=== PATIENT | male | born 1960 | race Caucasian/White ===

== ENCOUNTER 2016-06-13 20:12 | Inpatient (IN) | payer OTHER ==
[~2016-06-13] VITALS: Ht 180.3 cm; Wt 80.5 kg
[~2016-06-13 20:12] MED LIST: AMLO10TA4 PO; AMLO5TAB2 PO; ASPI325T4 PO; ASPI81TA9 PO; ATEN50TA PO; ATOR10TA60 PO; ATOR40TA PO; AZIT500T4 PO; Aspirin PO; CARV6.252 PO; DIGO125T PO; DILT360C PO; FLEC50TA PO; HYDR25TA9 PO; INSU100I13 SQ; LEVO100T5 PO; LEVO125T PO; LEVO125T5 PO; LISI5TAB PO; LORA-434 PO; MAG355OR12 PO; METO100T11 PO; METO25TA4 PO; METO50TA2 PO; OMEG1CAP6 PO; OXYC5TAB PO; RIVA10TA PO
[2016-06-13 20:48] LABS: BASO # 0.1 x10^3/uL (0.0-0.2); BASO % 1 % (0-3); EOS % 4 % (0-3); HEMATOCRIT 34.3 % (39.0-53.0); HEMOGLOBIN 11.4 g/dL (13.0-17.5); LYMPH % 30 % (24-48); MEAN CORPUSCULAR HEMOGLOBIN 30 pg (25-35); MEAN CORPUSCULAR HGB CONC 33 g/dL (31-37); MEAN CORPUSCULAR VOLUME 90 fL (79-100); MONO % 13 % (0-9); NEUT % 53 % (31-73); PLATELET COUNT 387 x10^3/uL (140-400); RED BLOOD COUNT 3.81 x10^6/uL (4.30-5.70); RED CELL DISTRIBUTION WIDTH 14.9 % (11.5-14.5); WHITE BLOOD COUNT 10.1 x10^3/uL (4.0-11.0)
[2016-06-13 20:56] LABS: PROTHROMBIN TIME PATIENT 12.1 SEC (11.7-14.0)
[2016-06-13 21:02] LABS: CALCIUM 8.9 mg/dL (8.5-10.1); CREATININE 0.9 mg/dL (0.7-1.3); GFR 87.9; POTASSIUM 3.8 mmol/L (3.5-5.1)
[2016-06-13 21:06] LABS: ALBUMIN 3.3 g/dL (3.4-5.0); ALBUMIN/GLOBULIN RATIO 0.9 (1.0-1.7); TOTAL BILIRUBIN 0.3 mg/dL (0.2-1.0); TOTAL PROTEIN 6.9 g/dL (6.4-8.2)
--- NOTE | 2016-06-13 21:16 | RAD ---
PROCEDURE Head and cervical spine CT without contrast. HISTORY Trauma. TECHNIQUE Computed tomographic images the head and cervical spine were obtained without contrast. One or more of the following individualized dose reduction techniques were utilized for this examination: 1. Automated exposure control; 2. Adjustment of the mA and/or kV according to patient size; 3. Use of iterative reconstruction technique. COMPARISON None. FINDINGS Head: There is no acute or subacute hemorrhage. There is no mass effect or midline shift. There is no hydrocephalus. The palacios and white matter differentiation pattern is intact. The orbits, paranasal sinuses mastoid air cells are unremarkable. No calvarial lesion is seen. Cervical spine: There is no significant listhesis. The vertebral bodies are normal in height. There is mild endplate remodeling at multiple levels. There is a small round lucent lesion within C6, likely a small hemangioma. There is a circumscribed hyperdense lesion within the right aspect of the spinal canal extending from the inferior aspect of C7 to the mid inferior aspect of T1. This measures 1.9 cm craniocaudally by 1.6 cm transversely by 1.4 cm anteroposteriorly. This extends to but does not extend through the right C7-T1 and T1-T2 neural foramina. This occupies slightly less than half of the caliber of the central canal at these levels. There is calcified plaque within the carotid bifurcations. There is an enlarged left thyroid lobe or single 3.5 cm hypodense lesion within the left thyroid lobe. At C2-C3, there is endplate remodeling. There is no stenosis. At C3-C4, there is endplate remodeling. There is no stenosis. At C4-C5, there is left posterior lateral predominant endplate remodeling. There is minimal left foraminal stenosis. At C5-C6, there is endplate remodeling. There is minimal right foraminal stenosis. At C6-C7, there is endplate remodeling. There is no stenosis. IMPRESSION 1. No acute intracranial finding or evidence of acute cervical spine trauma. 2. Mild multilevel degenerative change within the cervical spine. 3. 1.9 cm likely ossified lesion within the right aspect of the central canal at C7 and T1, occupying slightly less than half of the central canal caliber. This may be due to a benign lesion such as an ossified meningioma. However, further characterization with a contrast-enhanced MRI is recommended if not previously performed. Electronically signed by: Kathleen De La Cruz (Jun 13, 2016 21:15:10)
[2016-06-13] MEDS ORDERED: LORAZEPAM 1 MG TABLET. PO ONE (22:00)
[2016-06-14] MEDS: ONDANSETRON PF 4 MG/2 ML VIAL. IV PRN ×2 (00:53→20:12)
--- NOTE | 2016-06-14 02:27 | ED.ADGEN ---
Past Medical History Past Medical History: A-Fib, Anxiety, Arrhythmia, Cancer, Hypertension, Other Additional Past Medical Histor: SPONT PNEUMO, HODGKINS X2, PERICARDIAL STRIPPING, SVT Past Surgical History: Appendectomy, Splenectomy, Other Additional Past Surgical Histo: TAIL OF PANCREAS REMOVED, PERICARDIAL STRIPPING , Alcohol Use: Occasionally Drug Use: None Adult General Chief Complaint Chief Complaint: SYNCOPE HPI HPI Patient is a 55 year old man, history of hypertension, Hodgkin's lymphoma, pericardial stripping, atrial fibrillation, status post cardiac ablation 1 week ago at [facility], who is taking per [facility] as directed, who presents emergency department after 2 episodes of syncope. Patient states that he had returned to work today the first time after his procedure, he states that he was feeling well although slowly fatigued, when he stood up to go to bed, he suddenly felt extremely dizzy and lightheaded, and became diaphoretic, he states he then passed out, falling down to the ground and striking his head, states that he was unconscious for a few seconds. He states he been woken up and attempted to get back up to his feet, at that time had a second episode of syncope, again lasting for a few seconds. At that point his called EMS having heard him fall. Patient placed in c-collar upon arrival to the ED. He denies any neck pain , any numbness weakness or tingling, any chest pain, states he did experience shortness of breath during the seconds preceding the syncopal episode, but otherwise had no shortness of breath. He denies any vision changes, any preceding injuries, states that he's been compliant with all medications, no swelling in his extremities, no history of DVT or PE, no palpitations or other complaints, no sick contacts or exposures, no fevers or chills. Review of Systems Review of Systems Constitutional: Denies fever or chills. [] Eyes: Denies change in visual acuity. [] HENT: Denies nasal congestion or sore throat. [] Respiratory: Denies cough, shortness of breath with syncope. [] Cardiovascular: Denies chest pain or edema. [] GI: Denies abdominal pain, nausea, vomiting, bloody stools or diarrhea. [] : Denies dysuria. [] Musculoskeletal: Denies back pain or joint pain. [] Integument: Denies rash. [] Neurologic: Denies headache, focal weakness or sensory changes. Syncope, associated with diaphoresis, lightheadedness, and shortness breath [] Endocrine: Denies polyuria or polydipsia. [] Lymphatic: Denies swollen glands. [] Psychiatric: Denies depression or anxiety. [] Allergies Allergies Allergies Coded Allergies Type Severity Reaction Last Updated Verified morphine Allergy Severe blisters, sob 03/15/16 Yes Physical Exam Physical Exam Constitutional: Well developed, well nourished, no acute distress, non-toxic appearance. [] HENT: Normocephalic, atraumatic, bilateral external ears normal, oropharynx moist, no oral exudates, nose normal. [] Eyes: PERRLA, EOMI, conjunctiva normal, no discharge. [] Neck: Normal range of motion, no tenderness, supple, no stridor. [] Cardiovascular:Heart rate regular rhythm, no murmur, S1, S2, rubs or gallops. Patient with well-healed surgical incision over the midline chest from pericardial stripping. [] Lungs & Thorax: Bilateral breath sounds clear to auscultation no wheezing, rhonchi, rales. No chest tenderness or crepitus. [] Abdomen: Bowel sounds normal, soft, no tenderness, no rebound, rigidity, no guarding, no masses, no pulsatile masses. [] Skin: Warm, dry, no erythema, no rash. [] Back: No tenderness, no CVA tenderness. [] Extremities: No tenderness, no cyanosis, no clubbing, ROM intact, no edema. Negative Homans sign. [] Neurologic: Alert and oriented X 3, normal motor function, normal sensory function, no focal deficits noted. [] Psychologic: Affect normal, judgement normal, mood normal. [] Current Patient Data Vital Signs Vital Signs Date Time Temp Pulse Resp B/P Pulse Ox O2 Delivery O2 Flow Rate FiO2 06/13/16 21:30 78 144/69 97 Room Air 06/13/16 20:16 98.4 16 98.4 Lab Values Laboratory Tests Test 06/13/16 20:35 White Blood Count 10.1x10^3/uL (4.0-11.0) Red Blood Count 3.81x10^6/uL (4.30-5.70) L Hemoglobin 11.4g/dL (13.0-17.5) L Hematocrit 34.3% (39.0-53.0) L Mean Corpuscular Volume 90fL (79-100) Mean Corpuscular Hemoglobin 30pg (25-35) Mean Corpuscular Hemoglobin Concent 33g/dL (31-37) Red Cell Distribution Width 14.9% (11.5-14.5) H Platelet Count 387x10^3/uL (140-400) Neutrophils (%) (Auto) 53% (31-73) Lymphocytes (%) (Auto) 30% (24-48) Monocytes (%) (Auto) 13% (0-9) H Eosinophils (%) (Auto) 4% (0-3) H Basophils (%) (Auto) 1% (0-3) Neutrophils # (Auto) 5.3x10^3uL (1.8-7.7) Lymphocytes # (Auto) 3.0x10^3/uL (1.0-4.8) Monocytes # (Auto) 1.3x10^3/uL (0.0-1.1) H Eosinophils # (Auto) 0.4x10^3/uL (0.0-0.7) Basophils # (Auto) 0.1x10^3/uL (0.0-0.2) Prothrombin Time 12.1SEC (11.7-14.0) Prothrombin Time INR 1.0 (0.8-1.1) PTT 31SEC (24-38) Sodium Level 139mmol/L (136-145) Potassium Level 3.8mmol/L (3.5-5.1) Chloride Level 102mmol/L (98-107) Carbon Dioxide Level 26mmol/L (21-32) Anion Gap 11 (6-14) Blood Urea Nitrogen 16mg/dL (8-26) Creatinine 0.9mg/dL (0.7-1.3) Estimated GFR (Cockcroft-Gault) 87.9 BUN/Creatinine Ratio 18 (6-20) Glucose Level 132mg/dL (70-99) H Calcium Level 8.9mg/dL (8.5-10.1) Total Bilirubin 0.3mg/dL (0.2-1.0) Aspartate Amino Transferase (AST) 73U/L (15-37) H Alanine Aminotransferase (ALT) 72U/L (16-63) H Alkaline Phosphatase 152U/L (46-116) H Troponin I Quantitative 1.358ng/mL (0.000-0.055) XC-Lla-A-Type Natriuretic Peptide 585pg/mL (0-124) H Total Protein 6.9g/dL (6.4-8.2) Albumin 3.3g/dL (3.4-5.0) L Albumin/Globulin Ratio 0.9 (1.0-1.7) L Laboratory Tests 06/13/16 20:35 Laboratory Tests 06/13/16 20:35 EKG EKG EC: Sinus rhythm, heart rate of 82 bpm, left axis deviation, left ventricle hypertrophy, QTC of 464, MN 168, QRS of 122, abnormal ECG, does not meet STEMI criteria, as interpreted by me. [] Radiology/Procedures Radiology/Procedures [] [facility] [address] [place] [address] IMAGING REPORT Signed PATIENT: MIGUEL HERNANDEZ ACCOUNT: [id number] : 1960 LOCATION: ER AGE: 55 SEX: M EXAM STATUS: REG ER ORD. PHYSICIAN: AI YIN DO REASON: syncope/head injury on pradaxa PROCEDURE: HEAD AND CERVICAL SPINE WO PROCEDURE Head and cervical spine CT without contrast. HISTORY Trauma. TECHNIQUE Computed tomographic images the head and cervical spine were obtained without contrast. One or more of the following individualized dose reduction techniques were utilized for this examination: 1. Automated exposure control; 2. Adjustment of the mA and/or kV according to patient size; 3. Use of iterative reconstruction technique. COMPARISON None. FINDINGS Head: There is no acute or subacute hemorrhage. There is no mass effect or midline shift. There is no hydrocephalus. The palacios and white matter differentiation pattern is intact. The orbits, paranasal sinuses mastoid air cells are unremarkable. No calvarial lesion is seen. Cervical spine: There is no significant listhesis. The vertebral bodies are normal in height. There is mild endplate remodeling at multiple levels. There is a small round lucent lesion within C6, likely a small hemangioma. There is a circumscribed hyperdense lesion within the right aspect of the spinal canal extending from the inferior aspect of C7 to the mid inferior aspect of T1. This measures 1.9 cm craniocaudally by 1.6 cm transversely by 1.4 cm anteroposteriorly. This extends to but does not extend through the right C7-T1 and T1-T2 neural foramina. This occupies slightly less than half of the caliber of the central canal at these levels. There is calcified plaque within the carotid bifurcations. There is an enlarged left thyroid lobe or single 3.5 cm hypodense lesion within the left thyroid lobe. At C2-C3, there is endplate remodeling. There is no stenosis. At C3-C4, there is endplate remodeling. There is no stenosis. At C4-C5, there is left posterior lateral predominant endplate remodeling. There is minimal left foraminal stenosis. At C5-C6, there is endplate remodeling. There is minimal right foraminal stenosis. At C6-C7, there is endplate remodeling. There is no stenosis. IMPRESSION 1. No acute intracranial finding or evidence of acute cervical spine trauma. 2. Mild multilevel degenerative change within the cervical spine. 3. 1.9 cm likely ossified lesion within the right aspect of the central canal at C7 and T1, occupying slightly less than half of the central canal caliber. This may be due to a benign lesion such as an ossified meningioma. However, further characterization with a contrast-enhanced MRI is recommended if not previously performed. Electronically signed by: Kathleen Durbin (Jun 13, 2016 21:15:10) DICTATED and SIGNED BY: KATHLEEN DURBIN MD DATE: 06/13/162114 CC: AI YIN DO; COURTNEY RYAN MD ~ Impressions: Chest x-ray: Mild hyperinflation with flattening of diaphragms noted, normal cardiac silhouette, with sternotomy wires in place, no pneumothorax, no infiltrates, no effusions, as interpreted by me. Course & Med Decision Making Course & Med Decision Making Pertinent Labs and Imaging studies reviewed. (See chart for details) Patient well-appearing, normotensive the emergency department, oxygen saturation of 98-99% room air, heart rate in the 80s, denying all complaints this time, unable to reproduce his symptoms with motion to upright position and head motion. 2 in the ED, laboratory studies reveal a positive troponin, but patient did have an ablation performed last week, do not have lab for studies for comparison. I did discuss these findings and concerns for the unclear etiology of his syncope with patient, he is agreeable for admission to the hospital, I did discuss findings as above with Dr. Cantor of cardiology, as patient is anticoagulated, with no other abnormalities identified, does not believe imaging of the chest or additional testing is required at this time, agrees the troponin elevation is consistent with recent procedure, requests the patient be admitted to the cardiac telemetry floor, for serial enzymes and monitoring. To be evaluated by the cartilage team in the morning. Patient is agreeable to this plan, continues to rest comfortably in the ED. Has history of anxiety for which he uses Ativan, was given a single dose in the ED orally which he tolerated without issue. Findings as above discussed with Dr. Murray of internal medicine, patient accepted to his service as a full admission to the cardiac telemetry floor with plan as above, bridge orders entered per his request. Dragon Disclaimer Dragon Disclaimer This electronic medical record was generated, in whole or in part, using a voice recognition dictation system. Departure Impression: Primary Impression: Syncope Additional Impression: Elevated troponin Disposition: ADMITTED INPATIENT Admitting Physician: Tomas Murray Condition: IMPROVED Problem Qualifiers Primary Impression: Syncope Syncope type: unspecified Qualified Code: R55 - Syncope and collapse AI YIN DO Jun 14, 2016 02:28
--- NOTE | 2016-06-14 04:02 | ACF ---
Admit Criteria Forms Admit Criteria Forms Admit Criteria Forms SYNCOPE Clinical Indications for Admission to Inpatient Care ( Place 'X' for any and all applicable criteria): Admission is indicated for syncope and ANY ONE of the following (1)(2)(3)(4)(5) (6)(7) : [X]I. Inpatient admission required rather than observation care (Also use Syncope: Observation Care Criteria as appropriate) because of ANY ONE of the following: [ ]a) Hemodynamic instability that is severe or persistent [ ]b) Cardiac arrhythmias of immediate concern identified or strongly suspected (eg, needs electrophysiologic study) [ ]c) Acute coronary syndrome identified (Also use Myocardial Infarction or Angina Criteria form ) [ ]d) Structural cardiac disorder (eg, aortic stenosis) suspected as cause that requires immediate correction [ ]e) Respiratory symptoms (eg, dyspnea, tachypnea) that are severe or persistent [ ]f) Neurologic signs or symptoms that are severe or persistent ( eg, stroke, seizures, altered mental status) [ ]g) Severe electrolyte abnormalities requiring inpatient care [ ]h) Supplemental oxygen or respiratory treatment for over 24 hrs that are performable only in acute inpatient setting [ ]i) IV fluid to replace significant ongoing (eg, for over 24 hrs ) losses (>3 L/m2 per day) [ ]j) Continuous intravenous infusion of anticoagulation, platelet inhibitor, vasoactive, or antiarrhythmic medication(15)(16) [ ]k) Pulmonary artery catheter monitoring [ ]l) Temporary pacemaker placement(17) [ ]m) Emergent cardioversion(18) [X]n) Other conditions, treatment or monitoring requiring inpatient admission [ ]II. Suspicion of imminently dangerous cause (eg, rare causes like pericardial tamponade, pulmonary embolism) [ ]III. Syncope causing severe injury requiring hospitalization Extended stay beyond goal length of stay may be needed for(28) [ ]a) Dangerous arrhythmia(15)(23)(27)(29) [ ]b) Myocardial ischemia [ ]c) Seizure disorder [ ]d) Syncope-related injuries The original [facility] content created by [facility] has been revised. The portions of the content which have been revised are identified through the use of italic text or in bold, and [facility] has neither reviewed nor approved the modified material. All other unmodified content is copyright [facility]. Please see references footnoted in the original [facility] edition 2016 DONATO LEWIS Jun 14, 2016 04:02
--- NOTE | 2016-06-14 06:26 | EKG ---
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
--- NOTE | 2016-06-14 07:42 | RAD ---
Portable AP upright view CXR: Clinical indications: Syncope. Comparison: April 02, 2016. Findings: No acute lung infiltrate or pleural effusion or pulmonary edema or lung mass or pneumothorax is seen. Old calcified granulomatous disease is seen at. A sternotomy is evident. The heart size, pulmonary vasculature, mediastinum and both raúl are unremarkable. Impression: No acute radiographic abnormality is seen.
--- NOTE | 2016-06-14 10:32 | PDOC2 ---
ANISH CHOPRA TILE SETTER APPRENTICE 06/14/16 1032: CARDIAC CONSULT DATE OF CONSULT Date of Consult DATE: 06/14/16 TIME: 10:19 REASON FOR CONSULT Reason for Consult: syncope,elevated troponin REFERRING PHYSICIAN Referring Physician: aXvier SOURCE Source: Chart review, Patient HISTORY OF PRESENT ILLNESS HISTORY OF PRESENT ILLNESS This is a pleasant 55 yo male admitted for complains of syncope. Reports that he was getting up from bed last night when he started having tunneling vision and dizziness and diaphoresis. He then feel and hit his head on the floor but no apparent injury. He tried to get up and it happened again immediately. This was then witnessed for the second episode by his daughter. He passed out on both times but only lasted for few seconds. He was slightly confused at that time. Denies any palpitations nor chest pain at that time. He did have a little SOA but otherwise no other symptoms. No nausea, vomiting, diarrhea, incontinence episodes. Denies any unilateral weakness, facial droop, nor dysarthria. He recently had an AFIB ablation on Friday and did well and actually went to work yesterday without any symptoms. He has been compliant with his medications but he told me that he did not drink fluids that well yesterday. Denies any decongestants, caffeinated beverage use. Currently he is symptom free. PAST MEDICAL HISTORY Past Medical History Cardiovascular: AFIB (paroxysmal), HTN, Other (pericarditis with pericardial window) Pulmonary: Pneumonia, Other (pneumothorax) CENTRAL NERVOUS SYSTEM: TIA GI: GERD, Peptic Ulcer disease Heme/Onc: Anemia NOS, Cancer (hodgekin's lymphoma) Hepatobiliary: No pertinent hx Psych: Anxiety Musculoskeletal: Osteoarthritis Rheumatologic: No pertinent hx Infectious disease: No pertinent hx ENT: No pertinent hx Renal/: No pertinent hx Endocrine: Hypothyroidism Dermatology: No pertinent hx PAST SURGICAL HISTORY Past Surgical History splenectomy, partial pancreatectomy, AFIB ablation 06/10/2016 FAMILY HISTORY Family History noncontributory SOCIAL HISTORY Social History Social History works @ [employer] Smoke: No ALCOHOL: none Drugs: None CURRENT MEDICATIONS CURRENT MEDICATIONS Current Medications Medications (Trade) Dose Ordered Sig/Fernanda Route PRN Reason Start Time Stop Time Status Last Admin Dose Admin Lorazepam (Ativan) 0.5 mg 1X ONCE PO 06/13/16 22:00 06/13/16 22:01 DC 06/13/16 22:34 Ondansetron HCl (Zofran) 4 mg PRN Q8HRS PRN IV NAUSEA/VOMITING 06/14/16 00:30 06/15/16 00:29 06/14/16 00:53 ALLERGIES ALLERGIES: Coded Allergies: morphine (Verified Allergy, Severe, blisters, sob, 03/15/16) ROS Review of System 14 point ROS evaluated with pertinent positives noted per HPI PHYSICAL EXAM General: Alert, Oriented X3, Cooperative, No acute distress HEENT: Atraumatic, Mucous membr. moist/pink Lungs: Clear to auscultation, Normal air movement Heart: Regular rate, Normal S1, Normal S2, Other Abdomen: Soft, No tenderness Extremities: No cyanosis, No edema Skin: No breakdown, No significant lesion Neuro: Normal speech, Sensation intact Psych/Mental Status: Mental status NL, Mood NL MUSCULOSKELETAL: Osteoarthritic changes both hands VITALS VITALS Vital Signs Date Time Temp Pulse Resp B/P Pulse Ox O2 Delivery O2 Flow Rate FiO2 06/14/16 08:02 Room Air 06/14/16 07:38 82 20 154/71 93 06/13/16 20:16 98.4 98.4 LABS Lab: Laboratory Tests Test 06/13/16 20:35 06/14/16 07:30 White Blood Count 10.1x10^3/uL (4.0-11.0) Red Blood Count 3.81x10^6/uL (4.30-5.70) Hemoglobin 11.4g/dL (13.0-17.5) Hematocrit 34.3% (39.0-53.0) Mean Corpuscular Volume 90fL (79-100) Mean Corpuscular Hemoglobin 30pg (25-35) Mean Corpuscular Hemoglobin Concent 33g/dL (31-37) Red Cell Distribution Width 14.9% (11.5-14.5) Platelet Count 387x10^3/uL (140-400) Neutrophils (%) (Auto) 53% (31-73) Lymphocytes (%) (Auto) 30% (24-48) Monocytes (%) (Auto) 13% (0-9) Eosinophils (%) (Auto) 4% (0-3) Basophils (%) (Auto) 1% (0-3) Neutrophils # (Auto) 5.3x10^3uL (1.8-7.7) Lymphocytes # (Auto) 3.0x10^3/uL (1.0-4.8) Monocytes # (Auto) 1.3x10^3/uL (0.0-1.1) Eosinophils # (Auto) 0.4x10^3/uL (0.0-0.7) Basophils # (Auto) 0.1x10^3/uL (0.0-0.2) Prothrombin Time 12.1SEC (11.7-14.0) Prothromb Time International Ratio 1.0 (0.8-1.1) Activated Partial Thromboplast Time 31SEC (24-38) Sodium Level 139mmol/L (136-145) Potassium Level 3.8mmol/L (3.5-5.1) Chloride Level 102mmol/L (98-107) Carbon Dioxide Level 26mmol/L (21-32) Anion Gap 11 (6-14) Blood Urea Nitrogen 16mg/dL (8-26) Creatinine 0.9mg/dL (0.7-1.3) Estimated GFR (Cockcroft-Gault) 87.9 BUN/Creatinine Ratio 18 (6-20) Glucose Level 132mg/dL (70-99) Calcium Level 8.9mg/dL (8.5-10.1) Total Bilirubin 0.3mg/dL (0.2-1.0) Aspartate Amino Transf (AST/SGOT) 73U/L (15-37) Alanine Aminotransferase (ALT/SGPT) 72U/L (16-63) Alkaline Phosphatase 152U/L (46-116) Troponin I Quantitative 1.358ng/mL (0.000-0.055) 1.063ng/mL (0.000-0.055) DA-Xdv-T-Type Natriuretic Peptide 585pg/mL (0-124) Total Protein 6.9g/dL (6.4-8.2) Albumin 3.3g/dL (3.4-5.0) Albumin/Globulin Ratio 0.9 (1.0-1.7) ECHOCARDIOGRAM ECHOCARDIOGRAM <Conclusion> The left ventricle is normal size. Left ventricle systolic function is normal. The Ejection Fraction is 55-60%. The left atrium is mildly dilated. There is no thrombus noted in the left atrial appendage. There is no significant aortic valvular stenosis. Doppler and Color Flow revealed no significant aortic regurgitation. Doppler and Color Flow revealed moderate mitral regurgitation. Doppler and Color Flow revealed mild to moderate tricuspid regurgitation. DATE: 04/01/16 1339 STRESS TEST STRESS TEST Conclusion 1. No EKG evidence of ischemia but limited assessment due to atrial flutter with RVR. 2. Normal perfusion at stress/rest. 3. Low risk study. 4. EF preserved at > 70% DATE: 03/22/16 1352 ASSESSMENT/PLAN ASSESSMENT/PLAN 1. Syncope x2: likely orthostasis with underlying inadequate hydration. Could not rule out arrhythmia. 2. S/P RF ablation: 06/10/2016. EKG with T wave flattening to anterolateral leads likely from the latter 3. Elevated troponin: peaked at 1.3. CP free. likely from 1 & 2 with possible arrhythmia. Recent MPI normal. 4. PAFIB and TIA 5. Hx of hodkins lymphoma: on remission 6. HTN/HLP Recommendations 1. Limited TTE and note wall motion and EF, repeat EKG 2. Start IVF 3. Mg, BMP 4. Obtain ablation records. 5. Continue with secondary prevention 6. Await TTE result then will restart on xarelto. 7. Restart metoprolol, stop flecainide for now while waiting on echo result. Problems: MARINA PACE MD 06/14/16 1843: CARDIAC CONSULT ALLERGIES ALLERGIES: Coded Allergies: morphine (Verified Allergy, Severe, blisters, sob, 03/15/16) ASSESSMENT/PLAN ASSESSMENT/PLAN Patient seen and examined. Agree with HOMEMAKING REHABILITATION CONSULTANT's assessment and plan. Syncope most prob secondary to orthostasis - agree with IVF. Troponin elevation probably secondary to recent ablation therapy. 2D echo showed normal LV function without any wall motion abnormalities. Plan for event monitor placement upon discharge to rule out any bradyarrhythmias. If DC'd over weekend, our office will call him for event monitor. Thank you for your consultation. Problems: ANISH CHOPRA APRN Jun 14, 2016 10:32 MARINA PACE MD Jun 14, 2016 18:43
[2016-06-14] MEDS ORDERED: IV NORMAL SALINE 1000ML BAG 1,000 ML IV ONE (11:00)
[2016-06-14] MEDS: IV NORMAL SALINE 1000ML BAG 1,000 ML IV SCH (11:00)
[2016-06-14] MEDS ORDERED: ASPIRIN 81 MG TAB.CHEW PO ONE (11:00)
--- NOTE | 2016-06-14 11:09 | EKG ---
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
[2016-06-14] MEDS: ACETAMINOPHEN 325 MG TABLET. PO PRN ×2 (11:18→20:11)
[2016-06-14 11:46] LABS: CALCIUM 9.1 mg/dL (8.5-10.1); CREATININE 0.8 mg/dL (0.7-1.3); GFR 100.7; POTASSIUM 4.3 mmol/L (3.5-5.1)
[2016-06-14 11:49] LABS: HEMATOCRIT 35.9 % (39.0-53.0); HEMOGLOBIN 12.3 g/dL (13.0-17.5); RED BLOOD COUNT 4.1 x10^6/uL (4.30-5.70); RED CELL DISTRIBUTION WIDTH 15.2 % (11.5-14.5); WHITE BLOOD COUNT 10.6 x10^3/uL (4.0-11.0)
[2016-06-14] MEDS ORDERED: ANTI-COAG MONITOR BY PHARMACY. MC PRN (12:15)
[2016-06-14] MEDS: FLECAINIDE 50 MG TABLET. PO SCH ×2 (12:25→21:32)
[2016-06-14] MEDS: OMEGA-3 FATTY ACIDS/FISH OIL 1,000 MG CAPSULE. PO SCH ×3 (12:25→21:00)
[2016-06-14] MEDS: LEVOTHYROXINE 125 MCG TABLET PO SCH (12:25)
[2016-06-14] MEDS: RIVAROXABAN 10 MG TABLET. PO SCH ×2 (12:27→17:17)
--- NOTE | 2016-06-14 12:28 | CARD ---
APPROVED REPORT EXAM: LIMITED Two-dimensional echocardiogram. Other Information Quality : Excellent INDICATION LV Function:Systolic LEFT VENTRICLE The left ventricle is normal size. There is normal left ventricular wall thickness. The left ventricu lar systolic function is normal and the ejection fraction is within normal range. The Ejection Fracti on is 55-60%. Septal motion consistent with post-operative state. RIGHT VENTRICLE The right ventricle is normal size. The right ventricular systolic function is normal. ATRIA The left atrium size is normal. The right atrium size is normal. The interatrial septum is intact wit h no evidence for an atrial septal defect or patent foramen ovale as noted on 2-D or Doppler imaging. AORTIC VALVE Valves not evaluated on this limited study GREAT VESSELS Not evaluated PERICARDIAL EFFUSION There is no pleural effusion. There is no evidence of significant pericardial effusion. Critical Notification Critical Value: No <Conclusion> The left ventricular systolic function is normal and the ejection fraction is within normal range. Th e Ejection Fraction is 55-60%.
[2016-06-14] MEDS ORDERED: MAGNESIUM SULFATE 2GM 50 ML IV ONE (13:00)
[2016-06-14] MEDS: ASPIRIN ENTERIC COATED 81 MG TABLET.DR. PO SCH (13:00)
[2016-06-14] MEDS: METOPROLOL TART IMMED RELEASE 25 MG TABLET PO SCH ×2 (13:00→21:32)
[2016-06-14 16:21] VITALS: BP 155/83
[2016-06-14] MEDS ORDERED: APIX5TAB PO (16:59)
[2016-06-14] MEDS ORDERED: ALPR1TAB2 PO (17:00)
[2016-06-14] MEDS ORDERED: LORA1TAB PO (17:21)
[2016-06-14] MEDS: OXYCODONE IR 5 MG TABLET. PO PRN (17:33)
[2016-06-14] MEDS: LORAZEPAM 1 MG TABLET. PO PRN (17:33)
[2016-06-14 19:05] VITALS: BP 159/83
[2016-06-14] MEDS ORDERED: ATORVASTATIN CALCIUM 10 MG TABLET. PO SCH (21:00)
[2016-06-14 23:45] VITALS: BP 126/58
[2016-06-15] MEDS: IV NORMAL SALINE 1000ML BAG 1,000 ML IV SCH (00:20)
[2016-06-15 03:05] VITALS: BP 148/73
[2016-06-15] MEDS: OXYCODONE IR 5 MG TABLET. PO PRN ×2 (04:11→08:43)
--- NOTE | 2016-06-15 04:13 | HP ---
ADMIT DATE: 06/14/2016 CHIEF COMPLAINT: Syncope. HISTORY OF PRESENT ILLNESS: The patient is a pleasant 55-year-old male who had an ablation recently. He is well known to our service. Last night, he had another syncopal episode. He presented to the ER for evaluation. I have discussed the case with the ER physician. We are going to admit the patient and consult cardiology. PAST MEDICAL HISTORY: Recent ablation, AFib, anxiety, arrhythmias, Hodgkin's disease, pericardial stripping, spontaneous pneumo, hypertension, tail of pancreas removed. ALLERGIES: MORPHINE. FAMILY HISTORY: Coronary artery disease. SOCIAL HISTORY: Does not drink, smoke or take drugs. MEDICATIONS: Reviewed, please refer to the MRAD. REVIEW OF SYSTEMS: GENERAL: No history of weight change, weakness or fevers. SKIN: No bruising, hair changes or rashes. EYES: No blurred, double or loss of vision. NOSE AND THROAT: No history of nosebleeds, hoarseness or sore throat. HEART: No history of palpitations, chest pain or shortness of breath on exertion. LUNGS: Denies cough, hemoptysis, wheezing or shortness of breath. GASTROINTESTINAL: Denies changes in appetite, nausea, vomiting, diarrhea or constipation. GENITOURINARY: No history of frequency, urgency, hesitancy or nocturia. NEUROLOGIC: Denies history of numbness, tingling, tremor or weakness. PSYCHIATRIC: No history of panic, anxiety or depression. ENDOCRINE: No history of heat or cold intolerance, polyuria or polydipsia. EXTREMITIES: Denies muscle weakness, joint pain, pain on walking or stiffness. PHYSICAL EXAMINATION: VITAL SIGNS: Temperature afebrile, pulse 88, respirations 20, blood pressure 154/71. GENERAL: He is alert, cooperative. HEART: Normal S1, S2. LUNGS: Clear. ABDOMEN: Soft. EXTREMITIES: No edema. SKIN: No rashes. PSYCHIATRIC: Stable. VASCULAR: Good capillary refill. ENDOCRINE: No thyromegaly. LYMPHATICS: No cervical nodes. HEMATOPOIETIC: No bruising. LABORATORY DATA: Hematology normal other than hemoglobin of 11.4. Electrolytes normal. Troponin was little high at 1.35. ASSESSMENT AND PLAN: Syncopal episode with elevated troponin, suspect possible cardiac event. The patient has been admitted. We will consult cardiology. We will continue serial enzymes, serial EKGs, echocardiogram. Continue home medicines. Await further cardiac input. JACK BRUNNER DO DR: MICHAEL/lisa JOB#: [id number] / [id number]
[2016-06-15 05:17] LABS: BASO # 0.1 x10^3/uL (0.0-0.2); BASO % 1 % (0-3); EOS % 4 % (0-3); HEMATOCRIT 34.4 % (39.0-53.0); HEMOGLOBIN 11.6 g/dL (13.0-17.5); LYMPH # 1.9 x10^3/uL (1.0-4.8); LYMPH % 18 % (24-48); MEAN CORPUSCULAR HEMOGLOBIN 30 pg (25-35); MEAN CORPUSCULAR HGB CONC 34 g/dL (31-37); MEAN CORPUSCULAR VOLUME 89 fL (79-100); MONO % 10 % (0-9); NEUT % 67 % (31-73); PLATELET COUNT 405 x10^3/uL (140-400); RED BLOOD COUNT 3.87 x10^6/uL (4.30-5.70); RED CELL DISTRIBUTION WIDTH 14.7 % (11.5-14.5); WHITE BLOOD COUNT 10.4 x10^3/uL (4.0-11.0)
[2016-06-15 05:21] LABS: CALCIUM 8.5 mg/dL (8.5-10.1); CREATININE 0.7 mg/dL (0.7-1.3); GFR 117.5; POTASSIUM 4.1 mmol/L (3.5-5.1)
[2016-06-15 07:00] VITALS: BP 157/82
[2016-06-15] MEDS ORDERED: ASPIRIN ENTERIC COATED 81 MG TABLET.DR. PO SCH (08:00)
[2016-06-15] MEDS ORDERED: ONDANSETRON PF 4 MG/2 ML VIAL. IV ONE (08:30)
[2016-06-15] MEDS: OMEGA-3 FATTY ACIDS/FISH OIL 1,000 MG CAPSULE. PO SCH ×2 (08:42→09:00)
[2016-06-15] MEDS: METOPROLOL TART IMMED RELEASE 25 MG TABLET PO SCH (08:43)
[2016-06-15] MEDS: ASPIRIN ENTERIC COATED 81 MG TABLET.DR. PO SCH (08:44)
[2016-06-15] MEDS: LEVOTHYROXINE 125 MCG TABLET PO SCH (08:45)
[2016-06-15] MEDS ORDERED: MAG HYDROX/ALUMINUM HYDROX/SMC 30 ML ORAL.SUSP PO SCH (09:00)
[2016-06-15] MEDS: FLECAINIDE 50 MG TABLET. PO SCH (09:00)
[2016-06-15 10:52] VITALS: BP 133/76
[2016-06-15] MEDS: LORAZEPAM 1 MG TABLET. PO PRN (11:36)
--- NOTE | 2016-06-15 12:28 | PDOC ---
PROGRESS NOTES Chief Complaint Chief Complaint 1. Syncope x2: likely orthostasis, no athymias noted. anticipated D today 2. S/P RF ablation: 06/10/2016. 3. Elevated troponin: peaked at 1.3. CP free. 4. PAFIB and TIA 5. Hx of Pena lymphoma: on remission 6. HTN/HLP Vitals Vitals Vital Signs Date Time Temp Pulse Resp B/P Pulse Ox O2 Delivery O2 Flow Rate FiO2 06/15/16 11:37 Room Air 06/15/16 10:52 97.9 75 18 133/76 97 97.9 Physical Exam General: Alert, Oriented X3, Cooperative, No acute distress Heart: Regular rate, Normal S1, Normal S2, Other Lungs: Clear Abdomen: Soft, No tenderness Extremities: No cyanosis, No edema Skin: No breakdown, No significant lesion Labs LABS Laboratory Tests Test 06/15/16 04:45 White Blood Count 10.4x10^3/uL (4.0-11.0) Red Blood Count 3.87x10^6/uL (4.30-5.70) Hemoglobin 11.6g/dL (13.0-17.5) Hematocrit 34.4% (39.0-53.0) Mean Corpuscular Volume 89fL (79-100) Mean Corpuscular Hemoglobin 30pg (25-35) Mean Corpuscular Hemoglobin Concent 34g/dL (31-37) Red Cell Distribution Width 14.7% (11.5-14.5) Platelet Count 405x10^3/uL (140-400) Neutrophils (%) (Auto) 67% (31-73) Lymphocytes (%) (Auto) 18% (24-48) Monocytes (%) (Auto) 10% (0-9) Eosinophils (%) (Auto) 4% (0-3) Basophils (%) (Auto) 1% (0-3) Neutrophils # (Auto) 7.0x10^3uL (1.8-7.7) Lymphocytes # (Auto) 1.9x10^3/uL (1.0-4.8) Monocytes # (Auto) 1.0x10^3/uL (0.0-1.1) Eosinophils # (Auto) 0.4x10^3/uL (0.0-0.7) Basophils # (Auto) 0.1x10^3/uL (0.0-0.2) Sodium Level 139mmol/L (136-145) Potassium Level 4.1mmol/L (3.5-5.1) Chloride Level 104mmol/L (98-107) Carbon Dioxide Level 28mmol/L (21-32) Anion Gap 7 (6-14) Blood Urea Nitrogen 11mg/dL (8-26) Creatinine 0.7mg/dL (0.7-1.3) Estimated GFR (Cockcroft-Gault) 117.5 Glucose Level 129mg/dL (70-99) Calcium Level 8.5mg/dL (8.5-10.1) Assessment and Plan Assessmemt and Plan Problems Medical Problems: (1) Elevated troponin Status: Acute (2) Syncope Status: Acute Problems: Comment Review of Relevant I have reviewed the following items carlos (where applicable) has been applied. Labs Laboratory Tests Test 06/13/16 20:35 06/14/16 07:30 06/14/16 11:20 06/14/16 11:25 White Blood Count 10.1x10^3/uL (4.0-11.0) 10.6x10^3/uL (4.0-11.0) Red Blood Count 3.81x10^6/uL (4.30-5.70) 4.10x10^6/uL (4.30-5.70) Hemoglobin 11.4g/dL (13.0-17.5) 12.3g/dL (13.0-17.5) Hematocrit 34.3% (39.0-53.0) 35.9% (39.0-53.0) Mean Corpuscular Volume 90fL (79-100) 88fL (79-100) Mean Corpuscular Hemoglobin 30pg (25-35) 30pg (25-35) Mean Corpuscular Hemoglobin Concent 33g/dL (31-37) 34g/dL (31-37) Red Cell Distribution Width 14.9% (11.5-14.5) 15.2% (11.5-14.5) Platelet Count 387x10^3/uL (140-400) 427x10^3/uL (140-400) Neutrophils (%) (Auto) 53% (31-73) Lymphocytes (%) (Auto) 30% (24-48) Monocytes (%) (Auto) 13% (0-9) Eosinophils (%) (Auto) 4% (0-3) Basophils (%) (Auto) 1% (0-3) Neutrophils # (Auto) 5.3x10^3uL (1.8-7.7) Lymphocytes # (Auto) 3.0x10^3/uL (1.0-4.8) Monocytes # (Auto) 1.3x10^3/uL (0.0-1.1) Eosinophils # (Auto) 0.4x10^3/uL (0.0-0.7) Basophils # (Auto) 0.1x10^3/uL (0.0-0.2) Prothrombin Time 12.1SEC (11.7-14.0) Prothromb Time International Ratio 1.0 (0.8-1.1) Activated Partial Thromboplast Time 31SEC (24-38) Sodium Level 139mmol/L (136-145) 141mmol/L (136-145) Potassium Level 3.8mmol/L (3.5-5.1) 4.3mmol/L (3.5-5.1) Chloride Level 102mmol/L (98-107) 103mmol/L (98-107) Carbon Dioxide Level 26mmol/L (21-32) 32mmol/L (21-32) Anion Gap 11 (6-14) 6 (6-14) Blood Urea Nitrogen 16mg/dL (8-26) 12mg/dL (8-26) Creatinine 0.9mg/dL (0.7-1.3) 0.8mg/dL (0.7-1.3) Estimated GFR (Cockcroft-Gault) 87.9 100.7 BUN/Creatinine Ratio 18 (6-20) Glucose Level 132mg/dL (70-99) 123mg/dL (70-99) Calcium Level 8.9mg/dL (8.5-10.1) 9.1mg/dL (8.5-10.1) Total Bilirubin 0.3mg/dL (0.2-1.0) Aspartate Amino Transf (AST/SGOT) 73U/L (15-37) Alanine Aminotransferase (ALT/SGPT) 72U/L (16-63) Alkaline Phosphatase 152U/L (46-116) Troponin I Quantitative 1.358ng/mL (0.000-0.055) 1.063ng/mL (0.000-0.055) MY-Pgl-U-Type Natriuretic Peptide 585pg/mL (0-124) Total Protein 6.9g/dL (6.4-8.2) Albumin 3.3g/dL (3.4-5.0) Albumin/Globulin Ratio 0.9 (1.0-1.7) Creatine Kinase 83U/L (39-308) Test 06/14/16 11:27 06/15/16 04:45 Magnesium Level 1.7mg/dL (1.8-2.4) White Blood Count 10.4x10^3/uL (4.0-11.0) Red Blood Count 3.87x10^6/uL (4.30-5.70) Hemoglobin 11.6g/dL (13.0-17.5) Hematocrit 34.4% (39.0-53.0) Mean Corpuscular Volume 89fL (79-100) Mean Corpuscular Hemoglobin 30pg (25-35) Mean Corpuscular Hemoglobin Concent 34g/dL (31-37) Red Cell Distribution Width 14.7% (11.5-14.5) Platelet Count 405x10^3/uL (140-400) Neutrophils (%) (Auto) 67% (31-73) Lymphocytes (%) (Auto) 18% (24-48) Monocytes (%) (Auto) 10% (0-9) Eosinophils (%) (Auto) 4% (0-3) Basophils (%) (Auto) 1% (0-3) Neutrophils # (Auto) 7.0x10^3uL (1.8-7.7) Lymphocytes # (Auto) 1.9x10^3/uL (1.0-4.8) Monocytes # (Auto) 1.0x10^3/uL (0.0-1.1) Eosinophils # (Auto) 0.4x10^3/uL (0.0-0.7) Basophils # (Auto) 0.1x10^3/uL (0.0-0.2) Sodium Level 139mmol/L (136-145) Potassium Level 4.1mmol/L (3.5-5.1) Chloride Level 104mmol/L (98-107) Carbon Dioxide Level 28mmol/L (21-32) Anion Gap 7 (6-14) Blood Urea Nitrogen 11mg/dL (8-26) Creatinine 0.7mg/dL (0.7-1.3) Estimated GFR (Cockcroft-Gault) 117.5 Glucose Level 129mg/dL (70-99) Calcium Level 8.5mg/dL (8.5-10.1) Laboratory Tests Test 06/15/16 04:45 White Blood Count 10.4x10^3/uL (4.0-11.0) Red Blood Count 3.87x10^6/uL (4.30-5.70) Hemoglobin 11.6g/dL (13.0-17.5) Hematocrit 34.4% (39.0-53.0) Mean Corpuscular Volume 89fL (79-100) Mean Corpuscular Hemoglobin 30pg (25-35) Mean Corpuscular Hemoglobin Concent 34g/dL (31-37) Red Cell Distribution Width 14.7% (11.5-14.5) Platelet Count 405x10^3/uL (140-400) Neutrophils (%) (Auto) 67% (31-73) Lymphocytes (%) (Auto) 18% (24-48) Monocytes (%) (Auto) 10% (0-9) Eosinophils (%) (Auto) 4% (0-3) Basophils (%) (Auto) 1% (0-3) Neutrophils # (Auto) 7.0x10^3uL (1.8-7.7) Lymphocytes # (Auto) 1.9x10^3/uL (1.0-4.8) Monocytes # (Auto) 1.0x10^3/uL (0.0-1.1) Eosinophils # (Auto) 0.4x10^3/uL (0.0-0.7) Basophils # (Auto) 0.1x10^3/uL (0.0-0.2) Sodium Level 139mmol/L (136-145) Potassium Level 4.1mmol/L (3.5-5.1) Chloride Level 104mmol/L (98-107) Carbon Dioxide Level 28mmol/L (21-32) Anion Gap 7 (6-14) Blood Urea Nitrogen 11mg/dL (8-26) Creatinine 0.7mg/dL (0.7-1.3) Estimated GFR (Cockcroft-Gault) 117.5 Glucose Level 129mg/dL (70-99) Calcium Level 8.5mg/dL (8.5-10.1) Medications Current Medications Lorazepam (Ativan) 0.5 mg 1X ONCE PO Last administered on 06/13/16 22:34; Start 06/13/16 at 22:00; Stop 06/13/16 at 22:01; Status DC Ondansetron HCl (Zofran) 4 mg PRN Q8HRS PRN IV NAUSEA/VOMITING Last administered on 06/14/16 20:12; Start 06/14/16 at 00:30; Stop 06/15/16 at 00:29 ; Status DC Acetaminophen 650 mg 650 mg PRN Q4HRS PRN PO FEVER Last administered on 20:11; Start 06/14/16 at 00:30; Stop 06/15/16 at 00:29; Status DC Sodium Chloride 1,000 ml @ 100 mls/hr 1X ONCE IV Last administered on 11:18; Start 06/14/16 at 11:00; Stop 06/14/16 at 20:59; Status DC Sodium Chloride (Iv Sodium Chloride 0.9% 1000ml Bag) 1,000 ml @ 75 mls/hr [id number] IV Last administered on 06/15/16 00:20; Start 06/14/16 at 11:00 Aspirin (Ecotrin) 81 mg DAILYWBKFT PO ; Start 06/15/16 at 08:00; Status Cancel Aspirin (Children'S Aspirin) 324 mg 1X ONCE PO Last administered on 06/14/16 11:19; Start 06/14/16 at 11:00; Stop 06/14/16 at 11:02; Status DC Aspirin (Ecotrin) 81 mg DAILYWBKFT PO Last administered on 06/15/16 08:44; Start 06/14/16 at 13:00 Atorvastatin Calcium (Lipitor) 10 mg QHS PO Last administered on 06/14/16 12: 26; Start 06/14/16 at 21:00 Flecainide Acetate (Tambocor) 100 mg Q12HR PO Last administered on 06/14/16 21 :32; Start 06/14/16 at 13:00 Levothyroxine Sodium (Synthroid) 125 mcg DAILY07 PO Last administered on 08:45; Start 06/14/16 at 13:00 Al Hydroxide/Mg Hydroxide (Mylanta Plus Xs) 30 ml DAILY PO Last administered on 06/15/16 08:44; Start 06/15/16 at 09:00 Metoprolol Tartrate (Lopressor) 25 mg BID PO Last administered on 06/15/16 08: 43; Start 06/14/16 at 13:00 Fish Oil (Fish Oil) 2,000 mg BID PO ; Start 06/14/16 at 13:00 Oxycodone HCl (Roxicodone) 5 mg PRN Q6HRS PRN PO PAIN Last administered on 06/15 08:43; Start 06/14/16 at 11:30 Rivaroxaban (Xarelto) 20 mg DAILYWSUP PO Last administered on 06/14/16 12:27; Start 06/14/16 at 17:00; Stop 06/14/16 at 17:22; Status DC Info 1 each 1 each PRN DAILY PRN MC SEE COMMENTS; Start 06/14/16 at 12:15 Magnesium Sulfate/ Dextrose (Magnesium Sulfate PREMIX 2GM) 50 ml @ 25 mls/hr 1X ONCE IV Last administered on 06/14/16 13:42; Start 06/14/16 at 13:00; Stop 06/14/16 at 14:59; Status DC Lorazepam (Ativan) 1 mg TID PRN PRN PO ANXIETY / AGITATION Last administered on 06/15/16 11:36; Start 06/14/16 at 17:30 Ondansetron HCl (Zofran) 4 mg 1X ONCE IV Last administered on 06/15/16 08:45 ; Start 06/15/16 at 08:30; Stop 06/15/16 at 08:31; Status DC Active Scripts Active Oxycodone Hcl 5 Mg Tablet 5 Mg PO PRN Q6HRS PRN Metoprolol Tartrate 25 Mg Tablet 25 Mg PO BID Flecainide Acetate 50 Mg Tablet 100 Mg PO Q12HR Synthroid (Levothyroxine Sodium) 125 Mcg Tablet 125 Mcg PO DAILY07 Atorvastatin Calcium 10 Mg Tablet 10 Mg PO QHS 30 Days Aspirin Ec (Aspirin) 81 Mg Tablet.dr 81 Mg PO DAILYWBKFT Fish Oil 1,000 Mg Capsule (Rulo-3 Fatty Acids/Fish Oil) 1,000 Mg Capsule 2,000 Mg PO BID 30 Days Reported Lorazepam 1 Mg Tablet 1 Mg PO TID PRN PRN Xanax (Alprazolam) 1 Mg Tablet 1 Tab PO PRN TID PRN Eliquis (Apixaban) 5 Mg Tablet 5 Mg PO Maalox Maximum Strength Susp (Mag Hydrox/Al Hydrox/Simeth) 355 Ml Oral.susp 355 Ml PO Vitals/I & O Vital Sign - Last 24 Hours 06/14/16 06/14/16 06/14/16 06/14/16 13:45 16:21 17:33 18:40 Temp 97.7 97.7 Pulse 79 77 Resp B/P 135/60 155/83 Pulse Ox 96 97 97 O2 Delivery Room Air Room Air Room Air 06/14/16 06/14/16 06/14/16 06/14/16 19:05 20:00 21:32 21:32 Temp 97.8 97.8 Pulse 83 81 81 Resp 28 B/P 159/83 Pulse Ox 95 O2 Delivery Room Air Room Air 06/14/16 06/15/16 06/15/16 06/15/16 23:45 03:05 04:11 07:00 Temp 98.5 97.9 97.9 98.5 97.9 97.9 Pulse 77 80 79 Resp B/P 126/58 148/73 157/82 Pulse Ox 96 97 96 O2 Delivery Room Air Room Air Room Air Room Air 06/15/16 06/15/16 06/15/16 06/15/16 08:43 08:43 10:52 11:37 Temp 97.9 97.9 Pulse 78 75 Resp 18 B/P 157/82 133/76 Pulse Ox 97 O2 Delivery Room Air Room Air Room Air Intake and Output 06/14/16 06/14/16 06/15/16 15:00 23:00 07:00 Intake Total 60 ml Output Total 700 ml Balance 60 ml -700 ml VASIREDDI,YVON R MD Jun 15, 2016 12:28
--- NOTE | 2016-06-16 01:47 | DS ---
DATE OF DISCHARGE: 06/15/2016 DISCHARGE DIAGNOSES: 1. Syncope, likely due to orthostatic static 2. Status post cardioversion for Atrial fibrillation on 06/10/2016. 3. Elevated troponins, currently chest pain free. 4. History of paroxysmal atrial fibrillation and TIA. 5. History of Hodgkin's lymphoma. 6. Hypertension and hyperlipidemia. BRIEF HOSPITAL COURSE: A 55-year-old male patient admitted to the hospital for near syncope symptoms. He was evaluated by Cardiology, admitted to the Cardiology floor. Telemetry did not show any arrhythmias and as per Cardiology recommendations,pt did not show any signs of LV wall motion difficulties. Echocardiogram did not show any LV wall motion abnormalities. His symptoms improved with IV hydration and today he did not complain of any symptoms and telemetry did not show any arrhythmia. As per Cardiology recommendations, the patient can go home and plan for event monitor. DISCHARGE EXAMINATION: GENERAL: Alert, oriented x 3. HEART: S1, S2 present. LUNGS: Clear to auscultation. ABDOMEN: Soft, nontender, no organomegaly. EXTREMITIES: No edema. DISCHARGE DISPOSITION: Home. DISCHARGE CONDITION: Stable. FOLLOWUP: With Cardiology within 2 days. Total time spent for discharge is 32 minutes for patient education, counseling, and coordination of care. YVON SOTELO MD DR: FATEMEH/lisa JOB#: [id number] / [id number] BERNADINE
== END 2016-06-15 14:00 | disposition home or self-care (01) | DRG 312 ==
LOC: ER 20:12 → ED HOLD 21:48 → 2 NORTH 06-14 16:27
PROVIDERS: ADMIT Internal Medicine; ATTEND Internal Medicine
DX: I95.1 Orthostatic hypotension (principal); E03.9 Hypothyroidism, unspecified; E78.5 Hyperlipidemia, unspecified; I10 Essential (primary) hypertension; I48.0 Paroxysmal atrial fibrillation; K21.9 Gastro-esophageal reflux disease without esophagitis; Z82.49 Family history of ischemic heart disease and other diseases of the circulatory system; Z85.71 Personal history of Hodgkin lymphoma; Z85.72 Personal history of non-Hodgkin lymphomas; Z86.73 Personal history of transient ischemic attack (TIA), and cerebral infarction without residual deficits; Z87.11 Personal history of peptic ulcer disease; Z90.49 Acquired absence of other specified parts of digestive tract; Z88.6 Allergy status to analgesic agent
CPT/HCPCS: 36415; 70450; 71010; 72125; 80048; 80053; 82550; 83735; 83880; 84484; 85027; 85610; 85730; 93005; 93308; 96374; J2405; J7030; J7060; 99285-25

== ENCOUNTER 2016-06-16 16:07 | Inpatient (IN) | payer OTHER ==
[~2016-06-16] VITALS: Ht 185.4 cm; Wt 80.3 kg
[~2016-06-16 16:07] MED LIST changes: +ALPR1TAB2 PO; +APIX5TAB PO; +LORA1TAB PO
[2016-06-16 16:42] LABS: BASO # 0.1 x10^3/uL (0.0-0.2); BASO % 1 % (0-3); EOS % 0 % (0-3); HEMATOCRIT 36.7 % (39.0-53.0); HEMOGLOBIN 12.1 g/dL (13.0-17.5); LYMPH % 8 % (24-48); MEAN CORPUSCULAR HEMOGLOBIN 30 pg (25-35); MEAN CORPUSCULAR HGB CONC 33 g/dL (31-37); MEAN CORPUSCULAR VOLUME 90 fL (79-100); MONO % 6 % (0-9); NEUT % 85 % (31-73); PLATELET COUNT 370 x10^3/uL (140-400); RED CELL DISTRIBUTION WIDTH 14.8 % (11.5-14.5); WHITE BLOOD COUNT 12.2 x10^3/uL (4.0-11.0)
[2016-06-16 16:53] LABS: INR 1.3 (0.8-1.1); PROTHROMBIN TIME PATIENT 15.1 SEC (11.7-14.0)
[2016-06-16 16:55] LABS: CALCIUM 9.4 mg/dL (8.5-10.1); CREATININE 0.9 mg/dL (0.7-1.3); GFR 87.9
[2016-06-16 17:00] LABS: ALBUMIN 3.4 g/dL (3.4-5.0); ALBUMIN/GLOBULIN RATIO 0.8 (1.0-1.7); TOTAL BILIRUBIN 0.6 mg/dL (0.2-1.0); TOTAL PROTEIN 7.6 g/dL (6.4-8.2)
[2016-06-16 17:08] LABS: CKMB INDEX 0.7 % (0-4); CKMB MASS 0.6 ng/mL (0.0-3.6)
[2016-06-16] MEDS ORDERED: KETOROLAC TROMETHAMINE 30 MG/ML SYRINGE. IV ONE (17:15)
[2016-06-16 18:48] LABS: OBC FLU VALID
[2016-06-16] MEDS: FENTANYL PF 100 MCG/2 ML VIAL. IV PRN (20:17)
[2016-06-16] MEDS ORDERED: FENTANYL PF 100 MCG/2 ML VIAL. IV PRN (21:00)
[2016-06-16] MEDS: ONDANSETRON PF 4 MG/2 ML VIAL. IV PRN (21:53)
--- NOTE | 2016-06-16 23:28 | PHYS DOC ---
Past Medical History Past Medical History: A-Fib, Anxiety, Arrhythmia, Cancer, Hypertension, Other Additional Past Medical Histor: SPONT PNEUMO, HODGKINS X2, PERICARDIAL STRIPPING, SVT Past Surgical History: Appendectomy, Splenectomy, Other Additional Past Surgical Histo: TAIL OF PANCREAS REMOVED, PERICARDIAL STRIPPING , Alcohol Use: Sober Drug Use: None Adult General Chief Complaint Chief Complaint: CHEST PAIN HPI HPI Patient is a 55 year old man who complains of mid chest pain under the upper sternum began about 3 hours ago. It is a pressure type pain. It's worse with a deep breath. He feels a little short of air. Since it began, the pain has not gone away. It goes into his left shoulder somewhat, no other radiation. No nausea or diaphoresis. Patient states he had a fever of 103 and overnight last night, he doesn't know why. He hasn't really had a cough or felt sick otherwise. He did have his flu shot last fall. 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 He had a pericardial window and has not had any recurrence of these type of problems. Patient recently this past Friday was seen at [facility] to have an atrial fibrillation ablation procedure. That was done successfully. He does not have a pacemaker. Then, 3 days later, he stood up from a standing position and had a syncopal episode. He was actually admitted here at [facility] overnight for that. He doesn't believe they found any cause for the syncope. He has not had any recurrence. Patient states he had a nuclear stress test here a few months ago and it was reported to be normal. He's never had a heart attack, does not have known coronary artery disease. 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 PCP is Dr. Ryan Review of Systems Review of Systems Constitutional: Fever 103 last night as in history of present illness Eyes: Denies change in visual acuity, redness, or eye pain [] HENT: Denies nasal congestion or sore throat [] Respiratory: As in history of present illness Cardiovascular: As in history of present illness GI: Denies abdominal pain, nausea, vomiting, bloody stools or diarrhea [] : Denies dysuria or hematuria [] Musculoskeletal: Denies back pain or joint pain [] Integument: Denies rash or skin lesions [] Neurologic: Denies headache, focal weakness or sensory changes [] Current Medications Current Medications Current Medications Medications (Trade) Dose Ordered Sig/Fernanda Start Time Stop Time Status Last Admin Dose Admin Fentanyl Citrate (Fentanyl 2ml Vial) 50 mcg PRN Q15MIN PRN 06/16/16 19:30 06/17/16 19:29 06/16/16 20:17 50 MCG Ketorolac Tromethamine (Toradol) 30 mg 1X ONCE 06/16/16 17:15 06/16/16 17:16 DC 06/16/16 17:10 30 MG Allergies Allergies Allergies Coded Allergies Type Severity Reaction Last Updated Verified morphine Allergy Severe blisters, sob 03/15/16 Yes Physical Exam Physical Exam Constitutional: Well developed, well nourished, appears to not feel very well but in no acute distress, alert, mentating normally, color good. HENT: Normocephalic, atraumatic, bilateral external ears normal, nose normal. [] Eyes: conjunctiva normal, no discharge. [] Neck: Normal range of motion, no stridor. [] Cardiovascular:Heart rate regular rhythm, no murmur , no rub, no ectopy Lungs & Thorax: Bilateral breath sounds clear to auscultation [] Abdomen: Bowel sounds normal, soft, no tenderness, no masses, no pulsatile masses. [] Skin: Warm, dry, no erythema, no rash. [] Extremities: No tenderness, no cyanosis, no clubbing, ROM intact, no edema. [] Neurologic: Alert and oriented X 3, normal motor function, normal sensory function, no focal deficits noted. [] Current Patient Data Vital Signs Vital Signs Date Time Temp Pulse Resp B/P Pulse Ox O2 Delivery O2 Flow Rate FiO2 06/16/16 20:17 16 Room Air 06/16/16 18:40 82 161/78 96 06/16/16 16:10 98.4 98.4 Lab Values Laboratory Tests Test 06/16/16 16:33 06/16/16 18:25 White Blood Count 12.2x10^3/uL (4.0-11.0) H Red Blood Count 4.10x10^6/uL (4.30-5.70) L Hemoglobin 12.1g/dL (13.0-17.5) L Hematocrit 36.7% (39.0-53.0) L Mean Corpuscular Volume 90fL (79-100) Mean Corpuscular Hemoglobin 30pg (25-35) Mean Corpuscular Hemoglobin Concent 33g/dL (31-37) Red Cell Distribution Width 14.8% (11.5-14.5) H Platelet Count 370x10^3/uL (140-400) Neutrophils (%) (Auto) 85% (31-73) H Lymphocytes (%) (Auto) 8% (24-48) L Monocytes (%) (Auto) 6% (0-9) Eosinophils (%) (Auto) 0% (0-3) Basophils (%) (Auto) 1% (0-3) Neutrophils # (Auto) 10.3x10^3uL (1.8-7.7) H Lymphocytes # (Auto) 1.0x10^3/uL (1.0-4.8) Monocytes # (Auto) 0.7x10^3/uL (0.0-1.1) Eosinophils # (Auto) 0.0x10^3/uL (0.0-0.7) Basophils # (Auto) 0.1x10^3/uL (0.0-0.2) Prothrombin Time 15.1SEC (11.7-14.0) H Prothrombin Time INR 1.3 (0.8-1.1) H Sodium Level 134mmol/L (136-145) L Potassium Level 4.0mmol/L (3.5-5.1) Chloride Level 96mmol/L (98-107) L Carbon Dioxide Level 28mmol/L (21-32) Anion Gap 10 (6-14) Blood Urea Nitrogen 11mg/dL (8-26) Creatinine 0.9mg/dL (0.7-1.3) Estimated GFR (Cockcroft-Gault) 87.9 BUN/Creatinine Ratio 12 (6-20) Glucose Level 138mg/dL (70-99) H Calcium Level 9.4mg/dL (8.5-10.1) Total Bilirubin 0.6mg/dL (0.2-1.0) Aspartate Amino Transferase (AST) 157U/L (15-37) H Alanine Aminotransferase (ALT) 172U/L (16-63) H Alkaline Phosphatase 221U/L (46-116) H Creatine Kinase 87U/L (39-308) Creatine Kinase MB (Mass) 0.6ng/mL (0.0-3.6) Creatine Kinase MB Relative Index 0.7% (0-4) Troponin I Quantitative 0.153ng/mL (0.000-0.055) Total Protein 7.6g/dL (6.4-8.2) Albumin 3.4g/dL (3.4-5.0) Albumin/Globulin Ratio 0.8 (1.0-1.7) L Influenza Type A Antigen Negative (NEGATIVE) Influenza Type B Antigen Negative (NEGATIVE) Laboratory Tests 06/16/16 16:33 Laboratory Tests 06/16/16 16:33 EKG EKG Lead EKG read by me. Sinus rhythm. Heart rate 85. Left anterior fascicular block. There are no acute ST or T wave changes indicative of ischemia or infarction. No STEMI. 1620 [] Radiology/Procedures Radiology/Procedures One view portable chest x-ray read by me and compared to previous portable chest x-ray from earlier this week. Heart size normal. Lung silva are clear. I believe he may have a small right pleural effusion which is new from previous chest x-ray. [] Course & Med Decision Making Course & Med Decision Making Pertinent Labs and Imaging studies reviewed. (See chart for details) 55-year-old male with no history of coronary artery disease but who does have a history of constrictive pericarditis secondary to radiation therapy for Hodgkin' s lymphoma in 1982, also history of a atrial fibrillation ablation procedure done on June 10 at [facility], and also a history of 3 days ago being here for syncopal episode. Presents today with a three-hour episode of mid chest pain of unclear etiology. His EKG is normal on arrival. Patient continued to have some pain in the ED. I believe it is unlikely that his pain is cardiac ischemia. He does not have risk factors for coronary artery disease and in fact had a normal nuclear stress here a few months ago. He has not had associated symptoms and after 3 hours of pain has no ischemic changes on his EKG. I discussed this with the patient but certainly we will check some labs and chest x-ray in addition to EKG. Chart review shows that when he was here a few days ago, his troponin was mildly elevated in the range of 1., which was attributed to his recent ablation procedure. Serial enzymes did not elevate during that admission. Today, his troponin is mildly elevated but much lower than it was when he was here a few days ago. I discussed the case with the mannequin sander and finisher web production manager, Dr. Felix. He believes that we should observe the patient with serial enzymes and have the mannequin sander and finisher look at him tomorrow, see if there is any further recommendation as far as the chest pain at that time. I discussed this with the patient his agreeable to that plan. I discussed the case with Dr. Blankenship, [facility], who will admit the patient. I wrote bridge orders. Dr. Blankenship advised that the patient should be admitted to observation status. The patient remained stable while in the emergency department and continued to have pain that did not change. No other symptoms changed or appeared. [] Dragon Disclaimer Dragon Disclaimer This electronic medical record was generated, in whole or in part, using a voice recognition dictation system. Departure Departure Impression: Primary Impression: Chest pain Additional Impression: Elevated troponin Disposition: ADMITTED INPATIENT Admitting Physician: Victorino Blankenship Condition: STABLE Referrals: COURTNEY RYAN MD (PCP) Problem Qualifiers TAIWO FRANCIS MD Jun 16, 2016 23:29
[2016-06-17] MEDS ORDERED: LORAZEPAM 1 MG TABLET. PO PRN (00:30)
[2016-06-17] MEDS ORDERED: OXYCODONE IR 5 MG TABLET. PO PRN (00:30)
[2016-06-17] MEDS ORDERED: IV NORMAL SALINE 1000ML BAG 1,000 ML IV ONE (01:00)
[2016-06-17] MEDS ORDERED: AZITHROMYCIN 250 MG TABLET PO ONE (01:00)
[2016-06-17] MEDS ORDERED: CEFTRIAXONE 1GM IVPB FOR OMNI 50 ML IV ONE (01:15)
[2016-06-17] MEDS ORDERED: FLECAINIDE 50 MG TABLET. PO ONE (01:15)
[2016-06-17] MEDS: ACETAMINOPHEN 325 MG TABLET. PO PRN ×2 (01:17→13:06)
[2016-06-17] MEDS: METOPROLOL TART IMMED RELEASE 25 MG TABLET PO SCH ×3 (01:23→21:04)
[2016-06-17] MEDS: FENTANYL PF 100 MCG/2 ML VIAL. IV PRN ×5 (01:29→17:14)
[2016-06-17] MEDS: ONDANSETRON PF 4 MG/2 ML VIAL. IV PRN ×4 (01:30→17:14)
--- NOTE | 2016-06-17 04:40 | ACF ---
Admit Criteria Forms Admit Criteria Forms Admit Criteria Forms CARDIOLOGY GRG Clinical Indications for Admission to Inpatient Care ( Place 'X' for any and all applicable criteria): Hospital admission is needed for appropriate care of the patient because of ANY ONE of the following (1): [ ] I. Hemodynamic instability as indicated by ALL of the following (1)(2)(3) (4)(5) [ ]a) Vital signs or other findings not as expected for chronic patient condition or baseline [ ]b) Instability indicated by ANY ONE of the following: [ ]i) Hypotension [ ]ii) Symptomatic Tachycardia unresponsive to treatment ( e.g., analgesia, fluids, sedation as indicated) [ ]iii) Inadequate perfusion indicated by ANY ONE of the following: [ ] 1) Lactic acidosis (> 2 mmol/L) [ ] 2) New abnormal capillary refill (> 3 seconds) [ ] 3) Reduced urine output [ ] 4) New altered mental status [ ]iv) Orthostatic vital sign changes unresponsive to treatment (e.g., fluids) [ ]v) IV inotropic or vasopressor medication required to maintain adequate blood pressure or perfusion [ ] II. Severe heart failure as indicated by ANY ONE of the following(17)(18) [ ]a) Respiratory distress [ ]b) Hypotension [ ]c) Anasarca (refractory to outpatient therapy) [ ]d) Cardiac arrhythmias of immediate concern [ ]e) Myocardial ischemia [ ] III. Cardiac arrhythmias or findings of immediate concern indicated by ANY ONE of the following (19)(20): [ ] a) Heart rhythms that are inherently dangerous or unstable indicated by ANY ONE of the following (21)(22)(23): [ ] i) Resuscitated ventricular fibrillation or cardiac arrest [ ] ii) Ventricular escape rhythm [ ] iii) Sustained ventricular tachycardia (30 seconds or more of ventricular rhythm at greater than 100 beats per minute) [ ] iv) Nonsustained ventricular tachycardia and ANY ONE of the following: [ ] 1) Suspected cardiac ischemia as cause or consequence of ventricular tachycardia [ ] 2) In setting of acute myocarditis [ ] b) Unstable cardiac conduction defects indicated by ANY ONE of the following(23)(24)(25) [ ] i) Type II second-degree atrioventricular block [ ]ii) Third-degree atrioventricular block [ ]iii) New-onset left bundle branch block with suspected myocardial ischemia [ ]c) Any heart rhythm and ANY ONE of the following (21)(22)(26)(27) (28) [ ] i) Continuous long-term ECG monitoring needed (e.g., initiation of drug requiring monitoring for more than 24 hours) [ ] ii) Patient has automatic implanted cardioverter defibrillator that is repeatedly firing, malfunctioning, or in need of immediate adjustment of settings beyond the scope of ambulatory or observation care [ ]d) Heart rhythms of concern due to ANY ONE of the following: [ ] i) Hypotension [ ] ii) Respiratory distress [ ] iii) Association with other significant symptoms (e.g., bradycardia with syncope or ongoing dizziness, supraventricular tachycardia with chest pain (14)(15)(17) [ ] IV. Monitoring for cardiac contusion beyond the scope of observation care needed [A](30)(31)(32) [ ] V. Surgical or device complication (e.g., valve replacement complication , pacemaker dysfunction) (35)(41)(44)(45)(46) [ ] . Inpatient palliative care needed. [B](49) Also use Inpatient Palliative Care Criteria [ ] VII. Nonbacterial thrombotic (marantic) endocarditis (36)(43)(47)(48) [X] VIII. Cardiology condition, symptom, or finding for which emergency and observation care has failed or are not considered appropriate. [ ] IX. Acute valvular disease requiring inpatient as indicated by ANY ONE of the following (41) [ ]a) Acute valvular regurgitation (42) [ ]b) Noninfectious valvulitis (43) [ ]c) Obstructive valve thrombosis [ ]d) Paravalvular leak [ ]e) Other significant valvular disorder remaining after emergency or observation level of care (as appropriate) [ ]X. Pericardial disease requiring inpatient treatment as indicated by ANY ONE of the following (33)(34)(35)(36)(37) [ ]a) Suspected tamponade (38)(39)(40) [ ]b) Hemopericardium [ ]c) Other significant pericardial disorder remaining after emergency or observation level of care (as appropriate) [ ] XI. Cardiac ischemia beyond scope of emergency and observation care. [ ] XII. Hypertension requiring inpatient treatment as indicated by ANY ONE of the following (6)(7)(8) [ ]a) SBP greater than 220 mm Hg or DBP greater than 120 mmHg despite treatment [ ]b) SBP greater than 140 mm Hg or DBP greater than 100 mm Hg with evidence of acute end organ damage as indicated by ANY ONE of the following [ ] i) Encephalopathy [ ] ii) Acute renal failure as indicated by new onset of ANY ONE of the following (9)(10)(11)(12)(13) [ ]1) 3-fold rise in serum creatinine from baseline [ ]2) Serum creatinine greater than 4 mg/dL ( 354 micromoles/L) with acute rise greater than 0.5 mg/dL (44.2 micromoles/L) [ ]3) Reduction of more than 75% in estimated glomerular filtration rate from baseline [ ]4) Estimated glomerular filtration rate less than 35 mL/min/1.73m2 (0.59 mL/sec/1.73m2) in child up to 18 years of age [ ]5) Cessation of urine output indicated by ALL of the following [ ]A. Adequate volume status [ ]B. Inadequate urine output as indicated by ANY ONE of the following [ ]a. Urine output less than 0.3 mL/kg/hr for 24 hours [ ]b. Anuria (urine output less than 0.1 mL/kg/hr) for 12 hours [ ] iii) Aortic dissection [ ] iv) Myocardial Ischemia [ ] v) Left ventricular heart failure [ ]vi) Retinal Hemorrhage [ ]vii) Other significant finding [ ]c) Hypertension in child requiring inpatient treatment as indicated by ALL of the following(14)(15)(16) [ ] i) Outpatient treatment not effective, not available, or not appropriate [ ]ii) SBP or DBP greater than 95th percentile for age [ ]iii) Evidence of acute end organ damage as indicated by ANY ONE of the following [ ]1) Altered mental status [ ]2) Acute renal failure as indicated by new onset of ANY ONE of the following(9)(10)(11)(12)(13) [ ]A. 3-fold rise in serum creatinine from baseline [ ]B. Serum creatinine greater than 4 mg/dL (354 micromoles/L) with acute rise greater than 0.5 mg/dL (44.2 micromoles/L) [ ]C. Reduction of more than 75% in estimated glomerular filtration rate from baseline [ ]D. Estimated glomerular filtration rate less than 35 mL/min/1.73m2 (0.59 mL/sec/1.73m2) in child up to 18 years of age [ ]E. Cessation of urine output indicated by ALL of the following [ ]a. Adequate volume status [ ]b. Inadequate urine output as indicated by ANY ONE of the following [ ]i) Urine output less than 0.3 mL/kg/hr for 24 hours [ ]ii) Anuria ( urine output less than 0.1 mL/kg/hr) for 12 hours [ ]3) Severe headache [ ]4) Visual disturbance [ ]5) Retinal hemorrhage [ ]6) Other significant finding [ ]XIII. Complications of transplanted heart indicated by ANY ONE of the following(61): [ ]a) Acute graft rejection requiring inpatient management (eg, intravenous immunosuppression)(62)(63) [ ]b) Acute graft heart failure indicated by ANY ONE of the following(64): [ ]i) Hemodynamic instability [ ]ii) Cardiac arrhythmias of immediate concern [ ]iii) Pulmonary edema that is very severe (eg, mechanical ventilation needed, imminent or likely, need for 100% oxygen to keep oxygen saturation above 90%) [ ]iv) Pulmonary edema that is persistent as indicated by ALL of the following: [ ]1) New need for oxygen therapy to keep oxygen saturation above 90% (or increased FiO2 need from baseline) [ ]2) Has not improved sufficiently with emergency department or observation care IV diuretics or other heart failure treatments[E] [ ]v) Altered mental status that is severe or persistent [ ]vi) Increased creatinine (new on laboratory test) with reduction of more than 50% in estimated glomerular filtration rate from baseline [ ]vii) Progressively (ongoing) rising creatinine (known from past laboratory test) with reduction of more than 25% in estimated glomerular filtration rate from baseline [ ]viii) Acute renal failure [ ]ix) Acute peripheral ischemia (eg, examination shows pulseless, cool, mottled, or cyanotic extremity) [ ]x) Pulmonary artery catheter monitoring needed [ ]xi) Other sign or symptom of heart failure requiring inpatient treatment (ie, too severe or not responsive to outpatient and observation care treatment) [ ]c) Infection requiring inpatient management (eg, Hemodynamic instability, need for intravenous antimicrobial treatment)(66)(67)(68)(69)(70) [ ]d) Cardiac allograft vasculopathy requiring inpatient management ( eg evidence of cardiac ischemia)(71) [ ]e) Other complication of transplanted heart (eg, stroke, severe pulmonary hypertension, severe valvular dysfunction) requiring inpatient management(72) The original [employer] [facility] content created by [employer] [facility] has been revised. The portions of the content which have been revised are identified through the use of italic text or in bold, and [facility] has neither reviewed nor approved the modified material. All other unmodified content is copyright [employer] [facility]. Please see references footnoted in the original [employer] [facility] edition 2016 PADILLA ALEXIS Jun 17, 2016 04:40
--- NOTE | 2016-06-17 07:06 | EKG ---
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
[2016-06-17] MEDS: LEVOTHYROXINE 125 MCG TABLET PO SCH (07:21)
--- NOTE | 2016-06-17 08:56 | RAD ---
AP chest, 06/16/2016: History: Chest pain Comparison is made to a study from 06/13/2016. There has been a previous median sternotomy. The heart size is normal. There are calcified mediastinal and hilar lymph nodes compatible with old granulomatous disease. There is calcific plaquing of the thoracic aorta. The pulmonary vascularity is normal. Pleural thickening over the apices is probably due to scarring. No acute infiltrates are seen. There is blunting of the lateral costophrenic angles which was not evident on the previous study. The appearance suggests a small amount of pleural fluid. IMPRESSION: 1. Small bilateral pleural effusions. 2. No acute parenchymal abnormality is detected.
[2016-06-17 10:20] LABS: ALBUMIN 2.8 g/dL (3.4-5.0); ALBUMIN/GLOBULIN RATIO 0.7 (1.0-1.7); CALCIUM 8.4 mg/dL (8.5-10.1); CREATININE 0.8 mg/dL (0.7-1.3); GFR 100.7; MAGNESIUM 1.5 mg/dL (1.8-2.4); POTASSIUM 4.1 mmol/L (3.5-5.1); TOTAL BILIRUBIN 0.6 mg/dL (0.2-1.0); TOTAL PROTEIN 6.7 g/dL (6.4-8.2)
[2016-06-17] MEDS: ASPIRIN ENTERIC COATED 81 MG TABLET.DR. PO SCH (10:28)
[2016-06-17] MEDS: FLECAINIDE 50 MG TABLET. PO SCH ×2 (10:28→21:04)
--- NOTE | 2016-06-17 10:28 | PDOC2 ---
CARDIAC CONSULT DATE OF CONSULT Date of Consult DATE: 06/17/16 TIME: 10:27 REASON FOR CONSULT Reason for Consult: Chest pain REFERRING PHYSICIAN Referring Physician: Daniel SOURCE Source: Chart review, Patient HISTORY OF PRESENT ILLNESS HISTORY OF PRESENT ILLNESS This is a pleasant 55 yo male admitted for complains of chest pain and fever. He is significant for PAFIB with recent ablation and apparent x2 syncopal episodes last week post ablation. No repeated events of this and likely a result of antiHTN with inadequate PO hydration. Event monitor has been arranged for this. In relation to his chest pain. The night he was discharged on 06/15/2016, he had chills that night and again Friday. He then noted himself with Temp of 103 and was having dry cough. No SOA but unable to take a deep breath due to sharp pain to his left chest upon doing so. Denies any palpitations, nausea or vomiting. He has been compliant with his cardiac meds. PAST MEDICAL HISTORY Past Medical History Cardiovascular: AFIB (paroxysmal), HTN, Other (pericarditis with pericardial window), syncope Pulmonary: Pneumonia, Other (pneumothorax) CENTRAL NERVOUS SYSTEM: TIA GI: GERD, Peptic Ulcer disease Heme/Onc: Anemia NOS, Cancer (Hodgkin's lymphoma) Hepatobiliary: No pertinent hx Psych: Anxiety Musculoskeletal: Osteoarthritis Rheumatologic: No pertinent hx Infectious disease: No pertinent hx ENT: No pertinent hx Renal/: No pertinent hx Endocrine: Hypothyroidism Dermatology: No pertinent hx PAST SURGICAL HISTORY Past Surgical History splenectomy, partial pancreatectomy, AFIB ablation on 06/10/16 FAMILY HISTORY Family History noncontributory SOCIAL HISTORY Social History works @ [employer] Smoke: No ALCOHOL: none Drugs: None CURRENT MEDICATIONS CURRENT MEDICATIONS Current Medications Medications (Trade) Dose Ordered Sig/Fernanda Route PRN Reason Start Time Stop Time Status Last Admin Dose Admin Ketorolac Tromethamine (Toradol) 30 mg 1X ONCE IV 06/16/16 17:15 06/16/16 17:16 DC 06/16/16 17:10 Fentanyl Citrate (Fentanyl 2ml Vial) 50 mcg PRN Q15MIN PRN IV PAIN GREATER THAN 3/10 06/16/16 19:30 06/17/16 19:29 06/17/16 09:18 Ondansetron HCl (Zofran) 4 mg PRN Q8HRS PRN IV NAUSEA/VOMITING 06/16/16 21:00 06/17/16 20:59 06/17/16 08:49 Levothyroxine Sodium (Synthroid) 125 mcg DAILY07 PO 06/17/16 07:00 06/17/16 07:21 Metoprolol Tartrate (Lopressor) 25 mg BID PO 06/17/16 01:15 06/17/16 01:23 Acetaminophen 650 mg 650 mg PRN Q6HRS PRN PO MILD PAIN / TEMP 06/17/16 00:45 06/17/16 01:17 Sodium Chloride (Iv Sodium Chloride 0.9% 1000ml Bag) 1,000 ml @ 1,000 mls/hr 1X ONCE IV 06/17/16 01:00 06/17/16 01:59 DC 06/17/16 01:17 Azithromycin (Zithromax) 500 mg 1X ONCE PO 06/17/16 01:00 06/17/16 01:03 DC 06/17/16 01:17 Flecainide Acetate 100 mg 100 mg ONCE ONCE PO 06/17/16 01:15 06/17/16 01:16 DC 06/17/16 01:23 Ceftriaxone Sodium (Rocephin 1gm Ivpb For Omni) 50 ml @ 100 mls/hr ONCE ONCE IV 06/17/16 01:15 06/17/16 01:44 DC 06/17/16 01:24 ALLERGIES ALLERGIES: Coded Allergies: morphine (Verified Allergy, Severe, blisters, sob, 03/15/16) ROS Review of System 14 point ROS evaluated with pertinent positives noted per HPI PHYSICAL EXAM General: Alert, Oriented X3, Cooperative, No acute distress, Other (still has some chills) HEENT: Atraumatic, Mucous membr. moist/pink Heart: Regular rate, Normal S1, Normal S2, Other (2/6 systolic murmur to LLS border) Abdomen: Soft, No tenderness Extremities: No cyanosis, No edema Skin: No breakdown, No significant lesion Neuro: Normal speech, Sensation intact Psych/Mental Status: Mental status NL, Mood NL MUSCULOSKELETAL: Osteoarthritic changes both hands VITALS VITALS Vital Signs Date Time Temp Pulse Resp B/P Pulse Ox O2 Delivery O2 Flow Rate FiO2 06/17/16 09:18 11 98 Room Air 06/17/16 04:40 84 108/62 06/17/16 00:00 102.9 102.9 LABS Lab: Laboratory Tests Test 06/16/16 16:33 06/16/16 18:25 06/17/16 03:10 06/17/16 08:40 White Blood Count 12.2x10^3/uL (4.0-11.0) Red Blood Count 4.10x10^6/uL (4.30-5.70) Hemoglobin 12.1g/dL (13.0-17.5) Hematocrit 36.7% (39.0-53.0) Mean Corpuscular Volume 90fL (79-100) Mean Corpuscular Hemoglobin 30pg (25-35) Mean Corpuscular Hemoglobin Concent 33g/dL (31-37) Red Cell Distribution Width 14.8% (11.5-14.5) Platelet Count 370x10^3/uL (140-400) Neutrophils (%) (Auto) 85% (31-73) Lymphocytes (%) (Auto) 8% (24-48) Monocytes (%) (Auto) 6% (0-9) Eosinophils (%) (Auto) 0% (0-3) Basophils (%) (Auto) 1% (0-3) Neutrophils # (Auto) 10.3x10^3uL (1.8-7.7) Lymphocytes # (Auto) 1.0x10^3/uL (1.0-4.8) Monocytes # (Auto) 0.7x10^3/uL (0.0-1.1) Eosinophils # (Auto) 0.0x10^3/uL (0.0-0.7) Basophils # (Auto) 0.1x10^3/uL (0.0-0.2) Prothrombin Time 15.1SEC (11.7-14.0) Prothromb Time International Ratio 1.3 (0.8-1.1) Sodium Level 134mmol/L (136-145) 137mmol/L (136-145) Potassium Level 4.0mmol/L (3.5-5.1) 4.1mmol/L (3.5-5.1) Chloride Level 96mmol/L (98-107) 100mmol/L (98-107) Carbon Dioxide Level 28mmol/L (21-32) 25mmol/L (21-32) Anion Gap 10 (6-14) 12 (6-14) Blood Urea Nitrogen 11mg/dL (8-26) 10mg/dL (8-26) Creatinine 0.9mg/dL (0.7-1.3) 0.8mg/dL (0.7-1.3) Estimated GFR (Cockcroft-Gault) 87.9 100.7 BUN/Creatinine Ratio 12 (6-20) 13 (6-20) Glucose Level 138mg/dL (70-99) 125mg/dL (70-99) Calcium Level 9.4mg/dL (8.5-10.1) 8.4mg/dL (8.5-10.1) Total Bilirubin 0.6mg/dL (0.2-1.0) 0.6mg/dL (0.2-1.0) Aspartate Amino Transf (AST/SGOT) 157U/L (15-37) 140U/L (15-37) Alanine Aminotransferase (ALT/SGPT) 172U/L (16-63) 164U/L (16-63) Alkaline Phosphatase 221U/L (46-116) 231U/L (46-116) Creatine Kinase 87U/L (39-308) Creatine Kinase MB (Mass) 0.6ng/mL (0.0-3.6) Creatine Kinase MB Relative Index 0.7% (0-4) Troponin I Quantitative 0.153ng/mL (0.000-0.055) 0.093ng/mL (0.000-0.055) 0.073ng/mL (0.000-0.055) Total Protein 7.6g/dL (6.4-8.2) 6.7g/dL (6.4-8.2) Albumin 3.4g/dL (3.4-5.0) 2.8g/dL (3.4-5.0) Albumin/Globulin Ratio 0.8 (1.0-1.7) 0.7 (1.0-1.7) Influenza Type A Antigen Negative (NEGATIVE) Influenza Type B Antigen Negative (NEGATIVE) Magnesium Level 1.5mg/dL (1.8-2.4) ASSESSMENT/PLAN ASSESSMENT/PLAN 1. Atypical chest pain: appears pleuritic 2. Suspect pneumonia with bilateral pleural effusion: fever T max 102.9 3. PAFIB: recent ablation 06/10/2016, inducing troponin elevation which is significantly down. SR, no significant ectopies. 4. Recent syncopal episodes: no further recurrence 5. Hx of Hodgkins lymphoma Recommendations 1. Recommend pulmonary consult. 2. CT chest noncontrast. 3. Continue with secondary prevention 4. Flecainide, metoprolol, and eliquis. 5. Replace Mg. 6. Continue with plan for event monitor when discharge. Problems: ANISH CHOPRA [employer] Jun 17, 2016 10:28
[2016-06-17] MEDS: OMEGA-3 FATTY ACIDS/FISH OIL 1,000 MG CAPSULE. PO SCH ×2 (10:30→21:00)
[2016-06-17] MEDS ORDERED: ALPRAZOLAM 1 MG TABLET PO PRN (11:30)
[2016-06-17] MEDS ORDERED: MAGNESIUM SULFATE 2GM 50 ML IV ONE (12:00)
--- NOTE | 2016-06-17 14:13 | RAD ---
CT of the chest without contrast, 06/17/2016: History: Dyspnea, chest pain, pleural effusions Noncontrast scans were obtained as requested. There has been a previous median sternotomy. There is moderate calcific plaquing of the thoracic aorta without evidence of aneurysm. Minimal coronary artery calcifications present. There are calcified mediastinal lymph nodes. This includes coarse calcifications in the anterior mediastinum and AP window level, as well as in the right internal mammary region. No noncalcified adenopathy is appreciated. Small bilateral pleural effusions are present. There is only minimal adjacent atelectasis. No pulmonary consolidation or mass is seen. There is scarring involving the upper pole of left kidney. A 4 cm exophytic lesion arising from the lateral aspect of the left kidney is probably a cyst. There is a higher density 2.6 cm mass arising from the posterior aspect of the left kidney which could be a solid mass or complicated cyst. The spleen is surgically absent. IMPRESSION: 1. Small bilateral pleural effusions. 2. Calcified mediastinal and internal mammary region lymph nodes perhaps related to the patient's given history of treated lymphoma versus old granulomatous disease. 3. Medium density left renal mass raising the possibility of a solid mass versus a complicated cyst. Sonographic evaluation is suggested.
[2016-06-17 15:21] VITALS: BP 117/66
--- NOTE | 2016-06-17 16:13 | HP ---
ADMIT DATE: 06/17/2016 CHIEF COMPLAINT: Chest pain. HISTORY OF PRESENT ILLNESS: The patient is a pleasant middle-aged male who we just discharged. He is well known to our service. He does have multiple medical issues. Basically, at this time, he has chest pain. He thinks it is worse with breathing, it is on the left side, rated at 9 out 10. He tried increasing his home meds, but that does not work. I discussed the case with the ER physician. We are going to admit the patient and consult Cardiology. PAST MEDICAL HISTORY: Recent ablation, AFib, anxiety, Hodgkin's disease, hypertension, pericardial striping, SVTs, splenectomy, tail of pancreas removed. ALLERGIES: MORPHINE. FAMILY HISTORY: Coronary artery disease. SOCIAL HISTORY: He does not drink, smoke or take drugs. MEDICATIONS: Reviewed, please refer to the MRAD. REVIEW OF SYSTEMS: GENERAL: No history of weight change, weakness or fevers. SKIN: No bruising, hair changes or rashes. EYES: No blurred, double or loss of vision. NOSE AND THROAT: No history of nosebleeds, hoarseness or sore throat. HEART: He complains of chest pain. LUNGS: Denies cough, hemoptysis, wheezing or shortness of breath. GASTROINTESTINAL: Denies changes in appetite, nausea, vomiting, diarrhea or constipation. GENITOURINARY: No history of frequency, urgency, hesitancy or nocturia. NEUROLOGIC: Denies history of numbness, tingling, tremor or weakness. PSYCHIATRIC: No history of panic, anxiety or depression. ENDOCRINE: No history of heat or cold intolerance, polyuria or polydipsia. EXTREMITIES: Denies muscle weakness, joint pain, pain on walking or stiffness. PHYSICAL EXAMINATION: VITAL SIGNS: Temperature afebrile, pulse 89, respirations 20, blood pressure 113/91. GENERAL: He is alert, cooperative. HEART: Normal S1, S2. LUNGS: Clear. ABDOMEN: Soft. EXTREMITIES: No edema. SKIN: No rashes. PSYCHIATRIC: Stable. VASCULAR: Good capillary refill. ENDOCRINE: No thyromegaly. LYMPHATICS: No cervical nodes. HEMATOPOIETIC: No bruising. LABORATORY DATA: White count 12, hemoglobin 12, platelets 37. Electrolytes are normal. Troponin slightly high at 0.093. BNP 1535. Chest x-ray, small pleural effusions. ASSESSMENT AND PLAN: Chest pain, rule out coronary artery disease. The patient has been admitted. We will check serial enzymes, serial EKGs. Consult cardiology. I resumed his home meds, cardiac monitoring. JACK BRUNNER DO DR: Ezequiel JOB#: [id number] / [id number]
[2016-06-17 19:00] VITALS: BP 106/57
--- NOTE | 2016-06-17 20:41 | PDOC ---
PULMONARY PROGRESS NOTES Vitals Vital Signs Date Time Temp Pulse Resp B/P Pulse Ox O2 Delivery O2 Flow Rate FiO2 06/17/16 19:00 98.8 86 20 106/57 89 Room Air 98.8 Lungs: Clear Labs Laboratory Tests Test 06/16/16 16:33 06/16/16 18:25 06/17/16 03:10 06/17/16 08:40 White Blood Count 12.2x10^3/uL (4.0-11.0) Red Blood Count 4.10x10^6/uL (4.30-5.70) Hemoglobin 12.1g/dL (13.0-17.5) Hematocrit 36.7% (39.0-53.0) Mean Corpuscular Volume 90fL (79-100) Mean Corpuscular Hemoglobin 30pg (25-35) Mean Corpuscular Hemoglobin Concent 33g/dL (31-37) Red Cell Distribution Width 14.8% (11.5-14.5) Platelet Count 370x10^3/uL (140-400) Neutrophils (%) (Auto) 85% (31-73) Lymphocytes (%) (Auto) 8% (24-48) Monocytes (%) (Auto) 6% (0-9) Eosinophils (%) (Auto) 0% (0-3) Basophils (%) (Auto) 1% (0-3) Neutrophils # (Auto) 10.3x10^3uL (1.8-7.7) Lymphocytes # (Auto) 1.0x10^3/uL (1.0-4.8) Monocytes # (Auto) 0.7x10^3/uL (0.0-1.1) Eosinophils # (Auto) 0.0x10^3/uL (0.0-0.7) Basophils # (Auto) 0.1x10^3/uL (0.0-0.2) Prothrombin Time 15.1SEC (11.7-14.0) Prothromb Time International Ratio 1.3 (0.8-1.1) Sodium Level 134mmol/L (136-145) 137mmol/L (136-145) Potassium Level 4.0mmol/L (3.5-5.1) 4.1mmol/L (3.5-5.1) Chloride Level 96mmol/L (98-107) 100mmol/L (98-107) Carbon Dioxide Level 28mmol/L (21-32) 25mmol/L (21-32) Anion Gap 10 (6-14) 12 (6-14) Blood Urea Nitrogen 11mg/dL (8-26) 10mg/dL (8-26) Creatinine 0.9mg/dL (0.7-1.3) 0.8mg/dL (0.7-1.3) Estimated GFR (Cockcroft-Gault) 87.9 100.7 BUN/Creatinine Ratio 12 (6-20) 13 (6-20) Glucose Level 138mg/dL (70-99) 125mg/dL (70-99) Calcium Level 9.4mg/dL (8.5-10.1) 8.4mg/dL (8.5-10.1) Total Bilirubin 0.6mg/dL (0.2-1.0) 0.6mg/dL (0.2-1.0) Aspartate Amino Transf (AST/SGOT) 157U/L (15-37) 140U/L (15-37) Alanine Aminotransferase (ALT/SGPT) 172U/L (16-63) 164U/L (16-63) Alkaline Phosphatase 221U/L (46-116) 231U/L (46-116) Creatine Kinase 87U/L (39-308) Creatine Kinase MB (Mass) 0.6ng/mL (0.0-3.6) Creatine Kinase MB Relative Index 0.7% (0-4) Troponin I Quantitative 0.153ng/mL (0.000-0.055) 0.093ng/mL (0.000-0.055) 0.073ng/mL (0.000-0.055) Total Protein 7.6g/dL (6.4-8.2) 6.7g/dL (6.4-8.2) Albumin 3.4g/dL (3.4-5.0) 2.8g/dL (3.4-5.0) Albumin/Globulin Ratio 0.8 (1.0-1.7) 0.7 (1.0-1.7) Influenza Type A Antigen Negative (NEGATIVE) Influenza Type B Antigen Negative (NEGATIVE) Erythrocyte Sedimentation Rate 21 (0-15) Magnesium Level 1.5mg/dL (1.8-2.4) FT-Dpo-W-Type Natriuretic Peptide 1535pg/mL (0-124) Laboratory Tests Test 06/17/16 03:10 06/17/16 08:40 Troponin I Quantitative 0.093ng/mL (0.000-0.055) 0.073ng/mL (0.000-0.055) Erythrocyte Sedimentation Rate 21 (0-15) Sodium Level 137mmol/L (136-145) Potassium Level 4.1mmol/L (3.5-5.1) Chloride Level 100mmol/L (98-107) Carbon Dioxide Level 25mmol/L (21-32) Anion Gap 12 (6-14) Blood Urea Nitrogen 10mg/dL (8-26) Creatinine 0.8mg/dL (0.7-1.3) Estimated GFR (Cockcroft-Gault) 100.7 BUN/Creatinine Ratio 13 (6-20) Glucose Level 125mg/dL (70-99) Calcium Level 8.4mg/dL (8.5-10.1) Magnesium Level 1.5mg/dL (1.8-2.4) Total Bilirubin 0.6mg/dL (0.2-1.0) Aspartate Amino Transf (AST/SGOT) 140U/L (15-37) Alanine Aminotransferase (ALT/SGPT) 164U/L (16-63) Alkaline Phosphatase 231U/L (46-116) IO-Ojx-H-Type Natriuretic Peptide 1535pg/mL (0-124) Total Protein 6.7g/dL (6.4-8.2) Albumin 2.8g/dL (3.4-5.0) Albumin/Globulin Ratio 0.7 (1.0-1.7) Medications Active Scripts Medications Dose Route/Sig Days Date Category Lorazepam 1 Mg Tablet 1 Mg PO TID PRN PRN 06/14/16 Reported Xanax (Alprazolam) 1 Mg Tablet 1 Tab PO PRN TID PRN 06/14/16 Reported Eliquis (Apixaban) 5 Mg Tablet 5 Mg PO 06/14/16 Reported Oxycodone Hcl 5 Mg Tablet 5 Mg PO PRN Q6HRS PRN 03/29/16 Rx Metoprolol Tartrate 25 Mg Tablet 25 Mg PO BID 03/29/16 Rx Flecainide Acetate 50 Mg Tablet 100 Mg PO Q12HR 03/29/16 Rx Synthroid (Levothyroxine Sodium) 125 Mcg Tablet 125 Mcg PO DAILY07 03/19/16 Rx Atorvastatin Calcium 10 Mg Tablet 10 Mg PO QHS 30 03/19/16 Rx Aspirin Ec (Aspirin) 81 Mg Tablet.dr 81 Mg PO DAILYWBKFT 03/19/16 Rx Maalox Maximum Strength Susp (Mag Hydrox/Al Hydrox/Simeth) 355 Ml Oral.susp 355 Ml PO 03/16/16 Reported Fish Oil 1,000 Mg Capsule ([place]-3 Fatty Acids/Fish Oil) 1,000 Mg Capsule 2,000 Mg PO BID 30 08/02/14 Rx Impression . FEVER SUSPECT VIRAL NO INFILTRATES ON CT OF CHEST EFFUSION VERY SMALL D/C ANTIBX THANKS HAWK GOVEA MD Jun 17, 2016 20:41
[2016-06-17] MEDS ORDERED: ATORVASTATIN CALCIUM 10 MG TABLET. PO SCH (21:00)
[2016-06-17] MEDS ORDERED: CEFTRIAXONE SODIUM 1 GM in IV NORMAL SALINE 50ML 50 ML IV SCH (22:00)
[2016-06-17 23:00] VITALS: BP 150/50
[2016-06-18] MEDS: OXYCODONE IR 5 MG TABLET. PO PRN ×2 (02:42→08:24)
[2016-06-18 03:00] VITALS: BP 141/72
--- NOTE | 2016-06-18 06:26 | CONS ---
DATE OF CONSULTATION: 06/17/2016 ATTENDING PHYSICIAN: Dr. Tomas Murray. REASON FOR CONSULTATION: The patient was seen in pulmonary consultation at the request of Dr. Murray for abnormal CT revealing effusion. HISTORY OF PRESENT ILLNESS: The patient is a 55-year-old male who presented with increasing left-sided chest discomfort. He was evaluated and underwent a chest x-ray, which revealed a small effusion. CT confirmed a very small effusion. I was asked to see him in consultation. CT revealed some calcified mediastinal lymph nodes, otherwise no new findings. The patient denies any increasing shortness of breath. No productive cough. No nausea, vomiting, diarrhea. PAST MEDICAL HISTORY: 1. AFib, recent ambulation. 2. Hodgkin's disease. 3. Hypertension. 4. SVT. PAST SURGICAL HISTORY: Status post splenectomy. ALLERGIES: MORPHINE. FAMILY HISTORY: Coronary artery disease. SOCIAL HISTORY: He denies any alcohol or tobacco. REVIEW OF SYSTEMS: As indicated above, otherwise, a 10-point system was reviewed and negative. CURRENT MEDICATIONS: List was reviewed. PHYSICAL EXAMINATION: GENERAL: The patient was in no respiratory distress, no oxygen supplementation. VITAL SIGNS: He was afebrile. HEENT: Eyes, the sclerae were nonicteric. NECK: Jugular venous distention was not elevated. No lymphadenopathy. CHEST: Full expansion. LUNGS: Adequate airway flow, no wheezes. CARDIOVASCULAR: Regular rate and rhythm with S1, S2, no S3. ABDOMEN: Soft, nontender, nondistended. EXTREMITIES: No clubbing, cyanosis or edema. LABORATORY DATA: White count was elevated at 12,000, hemoglobin was . Electrolytes were . AST and ALT were elevated. Troponin was elevated. IMPRESSION: 1. Abnormal CT of the chest revealing very small pleural effusions, not large enough to warrant a thoracentesis. 2. Fever. 3. Elevated troponin level. 4. Paroxysmal atrial fibrillation. PLAN: 1. Clinically, no signs of pneumonia. The pleural effusions are very small. The fever is more than likely related to a viral infection. 2. Follow cardiology input. 3. We will follow along. 4. I do not recommend antibiotics at this time. I do appreciate the privilege in sharing in the patient's care. HAWK GOVEA MD DR: PEREZ/lisa JOB#: [id number] / [id number]
[2016-06-18] MEDS: LEVOTHYROXINE 125 MCG TABLET PO SCH (06:55)
[2016-06-18 07:00] VITALS: BP 124/62
[2016-06-18] MEDS: OMEGA-3 FATTY ACIDS/FISH OIL 1,000 MG CAPSULE. PO SCH (08:22)
[2016-06-18] MEDS: ASPIRIN ENTERIC COATED 81 MG TABLET.DR. PO SCH (08:23)
[2016-06-18] MEDS: METOPROLOL TART IMMED RELEASE 25 MG TABLET PO SCH (08:24)
[2016-06-18] MEDS: FLECAINIDE 50 MG TABLET. PO SCH (08:26)
--- NOTE | 2016-06-18 08:39 | PDOC ---
PULMONARY PROGRESS NOTES Subjective Pt with no increase soa Vitals Vital Signs Date Time Temp Pulse Resp B/P Pulse Ox O2 Delivery O2 Flow Rate FiO2 06/18/16 08:26 77 124/62 06/18/16 08:24 17 98 Room Air 06/18/16 07:00 99.3 99.3 ROS: No Nausea, No Chest Pain, No Abdominal Pain, No Increase Cough General: Alert Lungs: Clear Cardiovascular: S1, S2 Abdomen: Soft Neuro Exam: Alert Extremities: No Edema Skin: Warm Labs Laboratory Tests Test 06/16/16 16:33 06/16/16 18:25 06/17/16 03:10 06/17/16 08:40 White Blood Count 12.2x10^3/uL (4.0-11.0) Red Blood Count 4.10x10^6/uL (4.30-5.70) Hemoglobin 12.1g/dL (13.0-17.5) Hematocrit 36.7% (39.0-53.0) Mean Corpuscular Volume 90fL (79-100) Mean Corpuscular Hemoglobin 30pg (25-35) Mean Corpuscular Hemoglobin Concent 33g/dL (31-37) Red Cell Distribution Width 14.8% (11.5-14.5) Platelet Count 370x10^3/uL (140-400) Neutrophils (%) (Auto) 85% (31-73) Lymphocytes (%) (Auto) 8% (24-48) Monocytes (%) (Auto) 6% (0-9) Eosinophils (%) (Auto) 0% (0-3) Basophils (%) (Auto) 1% (0-3) Neutrophils # (Auto) 10.3x10^3uL (1.8-7.7) Lymphocytes # (Auto) 1.0x10^3/uL (1.0-4.8) Monocytes # (Auto) 0.7x10^3/uL (0.0-1.1) Eosinophils # (Auto) 0.0x10^3/uL (0.0-0.7) Basophils # (Auto) 0.1x10^3/uL (0.0-0.2) Prothrombin Time 15.1SEC (11.7-14.0) Prothromb Time International Ratio 1.3 (0.8-1.1) Sodium Level 134mmol/L (136-145) 137mmol/L (136-145) Potassium Level 4.0mmol/L (3.5-5.1) 4.1mmol/L (3.5-5.1) Chloride Level 96mmol/L (98-107) 100mmol/L (98-107) Carbon Dioxide Level 28mmol/L (21-32) 25mmol/L (21-32) Anion Gap 10 (6-14) 12 (6-14) Blood Urea Nitrogen 11mg/dL (8-26) 10mg/dL (8-26) Creatinine 0.9mg/dL (0.7-1.3) 0.8mg/dL (0.7-1.3) Estimated GFR (Cockcroft-Gault) 87.9 100.7 BUN/Creatinine Ratio 12 (6-20) 13 (6-20) Glucose Level 138mg/dL (70-99) 125mg/dL (70-99) Calcium Level 9.4mg/dL (8.5-10.1) 8.4mg/dL (8.5-10.1) Total Bilirubin 0.6mg/dL (0.2-1.0) 0.6mg/dL (0.2-1.0) Aspartate Amino Transf (AST/SGOT) 157U/L (15-37) 140U/L (15-37) Alanine Aminotransferase (ALT/SGPT) 172U/L (16-63) 164U/L (16-63) Alkaline Phosphatase 221U/L (46-116) 231U/L (46-116) Creatine Kinase 87U/L (39-308) Creatine Kinase MB (Mass) 0.6ng/mL (0.0-3.6) Creatine Kinase MB Relative Index 0.7% (0-4) Troponin I Quantitative 0.153ng/mL (0.000-0.055) 0.093ng/mL (0.000-0.055) 0.073ng/mL (0.000-0.055) Total Protein 7.6g/dL (6.4-8.2) 6.7g/dL (6.4-8.2) Albumin 3.4g/dL (3.4-5.0) 2.8g/dL (3.4-5.0) Albumin/Globulin Ratio 0.8 (1.0-1.7) 0.7 (1.0-1.7) Influenza Type A Antigen Negative (NEGATIVE) Influenza Type B Antigen Negative (NEGATIVE) Erythrocyte Sedimentation Rate 21 (0-15) Magnesium Level 1.5mg/dL (1.8-2.4) IW-Fuh-R-Type Natriuretic Peptide 1535pg/mL (0-124) Laboratory Tests Test 06/17/16 08:40 Erythrocyte Sedimentation Rate 21 (0-15) Sodium Level 137mmol/L (136-145) Potassium Level 4.1mmol/L (3.5-5.1) Chloride Level 100mmol/L (98-107) Carbon Dioxide Level 25mmol/L (21-32) Anion Gap 12 (6-14) Blood Urea Nitrogen 10mg/dL (8-26) Creatinine 0.8mg/dL (0.7-1.3) Estimated GFR (Cockcroft-Gault) 100.7 BUN/Creatinine Ratio 13 (6-20) Glucose Level 125mg/dL (70-99) Calcium Level 8.4mg/dL (8.5-10.1) Magnesium Level 1.5mg/dL (1.8-2.4) Total Bilirubin 0.6mg/dL (0.2-1.0) Aspartate Amino Transf (AST/SGOT) 140U/L (15-37) Alanine Aminotransferase (ALT/SGPT) 164U/L (16-63) Alkaline Phosphatase 231U/L (46-116) Troponin I Quantitative 0.073ng/mL (0.000-0.055) JR-Kba-W-Type Natriuretic Peptide 1535pg/mL (0-124) Total Protein 6.7g/dL (6.4-8.2) Albumin 2.8g/dL (3.4-5.0) Albumin/Globulin Ratio 0.7 (1.0-1.7) Medications Active Scripts Medications Dose Route/Sig Days Date Category Lorazepam 1 Mg Tablet 1 Mg PO TID PRN PRN 06/14/16 Reported Xanax (Alprazolam) 1 Mg Tablet 1 Tab PO PRN TID PRN 06/14/16 Reported Eliquis (Apixaban) 5 Mg Tablet 5 Mg PO 2/10/17 Reported Oxycodone Hcl 5 Mg Tablet 5 Mg PO PRN Q6HRS PRN 03/29/16 Rx Metoprolol Tartrate 25 Mg Tablet 25 Mg PO BID 03/29/16 Rx Flecainide Acetate 50 Mg Tablet 100 Mg PO Q12HR 03/29/16 Rx Synthroid (Levothyroxine Sodium) 125 Mcg Tablet 125 Mcg PO DAILY07 03/19/16 Rx Atorvastatin Calcium 10 Mg Tablet 10 Mg PO QHS 30 03/19/16 Rx Aspirin Ec (Aspirin) 81 Mg Tablet.dr 81 Mg PO DAILYWBKFT 03/19/16 Rx Maalox Maximum Strength Susp (Mag Hydrox/Al Hydrox/Simeth) 355 Ml Oral.susp 355 Ml PO 03/16/16 Reported Fish Oil 1,000 Mg Capsule ([place]-3 Fatty Acids/Fish Oil) 1,000 Mg Capsule 2,000 Mg PO BID 30 08/02/14 Rx Impression . 1. Abnormal CT of the chest revealing very small pleural effusions, not large enough to warrant a thoracentesis. 2. Fever. 3. Elevated troponin level. 4. Paroxysmal atrial fibrillation. Plan . check PCR for influenza continue the same Effusion too small for thoracentesis HAWK GOVEA MD Jun 18, 2016 08:39
[2016-06-18] MEDS ORDERED: APIXABAN 5 MG TABLET. PO SCH (09:00)
[2016-06-18] MEDS ORDERED: AZITHROMYCIN 250 MG TABLET PO SCH (09:00)
[2016-06-18] MEDS ORDERED: MAG HYDROX/ALUMINUM HYD/SIMETH 30 ML ORAL.SUSP PO SCH (09:00)
[2016-06-18 11:00] VITALS: BP 133/66
--- NOTE | 2016-06-18 11:13 | PDOC ---
PROGRESS NOTES Chief Complaint Chief Complaint 1. Chest pain 2. Atrial Fibrillation with recent ablation 3. Bilateral pleural effusions 4. Hypertension 5. SVT 6. Hodgkins disease History of Present Illness History of Present Illness Pt awake and alert laying down in his bed when seen this AM. Pt denies any current CP or SOA. Pt states that he is feeling "much better". All questions and concerns answered and addressed. Vitals Vitals Vital Signs Date Time Temp Pulse Resp B/P Pulse Ox O2 Delivery O2 Flow Rate FiO2 06/18/16 08:26 77 124/62 06/18/16 08:24 17 98 Room Air 06/18/16 07:00 99.3 99.3 Physical Exam General: Alert, Oriented X3, Cooperative, No acute distress, Other (still has some chills) Heart: Regular rate, Normal S1, Normal S2, Other (2/6 systolic murmur to LLS border) Lungs: Clear Abdomen: Soft, No tenderness Extremities: No cyanosis, No edema Skin: No rashes, No breakdown, No significant lesion Review of Systems Review of Systems Patient complaint of hunger Patient complaint of fatigue Assessment and Plan Assessmemt and Plan Problems Medical Problems: (1) Chest pain Status: Acute (2) Elevated troponin Status: Acute Assessment: 1. Chest pain 2. Atrial Fibrillation with recent ablation 3. Bilateral pleural effusions 4. Hypertension 5. SVT 6. Hodgkins disease Plan: Continue to monitor the patient per floor protocol Daily labs Daily PTOT Possible DC later this afternoon if ok with Pulmonary DW RN Recommend OP follow with Dr Ham regarding elevated LFTs. Appreciate Cards, Pulm recommendations and input. Problems: Comment Review of Relevant I have reviewed the following items carlos (where applicable) has been applied. Labs Laboratory Tests Test 06/16/16 16:33 06/16/16 18:25 06/17/16 03:10 06/17/16 08:40 White Blood Count 12.2x10^3/uL (4.0-11.0) Red Blood Count 4.10x10^6/uL (4.30-5.70) Hemoglobin 12.1g/dL (13.0-17.5) Hematocrit 36.7% (39.0-53.0) Mean Corpuscular Volume 90fL (79-100) Mean Corpuscular Hemoglobin 30pg (25-35) Mean Corpuscular Hemoglobin Concent 33g/dL (31-37) Red Cell Distribution Width 14.8% (11.5-14.5) Platelet Count 370x10^3/uL (140-400) Neutrophils (%) (Auto) 85% (31-73) Lymphocytes (%) (Auto) 8% (24-48) Monocytes (%) (Auto) 6% (0-9) Eosinophils (%) (Auto) 0% (0-3) Basophils (%) (Auto) 1% (0-3) Neutrophils # (Auto) 10.3x10^3uL (1.8-7.7) Lymphocytes # (Auto) 1.0x10^3/uL (1.0-4.8) Monocytes # (Auto) 0.7x10^3/uL (0.0-1.1) Eosinophils # (Auto) 0.0x10^3/uL (0.0-0.7) Basophils # (Auto) 0.1x10^3/uL (0.0-0.2) Prothrombin Time 15.1SEC (11.7-14.0) Prothromb Time International Ratio 1.3 (0.8-1.1) Sodium Level 134mmol/L (136-145) 137mmol/L (136-145) Potassium Level 4.0mmol/L (3.5-5.1) 4.1mmol/L (3.5-5.1) Chloride Level 96mmol/L (98-107) 100mmol/L (98-107) Carbon Dioxide Level 28mmol/L (21-32) 25mmol/L (21-32) Anion Gap 10 (6-14) 12 (6-14) Blood Urea Nitrogen 11mg/dL (8-26) 10mg/dL (8-26) Creatinine 0.9mg/dL (0.7-1.3) 0.8mg/dL (0.7-1.3) Estimated GFR (Cockcroft-Gault) 87.9 100.7 BUN/Creatinine Ratio 12 (6-20) 13 (6-20) Glucose Level 138mg/dL (70-99) 125mg/dL (70-99) Calcium Level 9.4mg/dL (8.5-10.1) 8.4mg/dL (8.5-10.1) Total Bilirubin 0.6mg/dL (0.2-1.0) 0.6mg/dL (0.2-1.0) Aspartate Amino Transf (AST/SGOT) 157U/L (15-37) 140U/L (15-37) Alanine Aminotransferase (ALT/SGPT) 172U/L (16-63) 164U/L (16-63) Alkaline Phosphatase 221U/L (46-116) 231U/L (46-116) Creatine Kinase 87U/L (39-308) Creatine Kinase MB (Mass) 0.6ng/mL (0.0-3.6) Creatine Kinase MB Relative Index 0.7% (0-4) Troponin I Quantitative 0.153ng/mL (0.000-0.055) 0.093ng/mL (0.000-0.055) 0.073ng/mL (0.000-0.055) Total Protein 7.6g/dL (6.4-8.2) 6.7g/dL (6.4-8.2) Albumin 3.4g/dL (3.4-5.0) 2.8g/dL (3.4-5.0) Albumin/Globulin Ratio 0.8 (1.0-1.7) 0.7 (1.0-1.7) Influenza Type A Antigen Negative (NEGATIVE) Influenza Type B Antigen Negative (NEGATIVE) Erythrocyte Sedimentation Rate 21 (0-15) Magnesium Level 1.5mg/dL (1.8-2.4) PR-Uez-K-Type Natriuretic Peptide 1535pg/mL (0-124) Medications Current Medications Ketorolac Tromethamine (Toradol) 30 mg 1X ONCE IV Last administered on 17:10; Start 06/16/16 at 17:15; Stop 06/16/16 at 17:16; Status DC Fentanyl Citrate (Fentanyl 2ml Vial) 50 mcg PRN Q15MIN PRN IV PAIN GREATER THAN 3/10 Last administered on 06/17/16 17:14; Start 06/16/16 at 19:30; Stop at 19:29; Status DC Ondansetron HCl (Zofran) 4 mg PRN Q8HRS PRN IV NAUSEA/VOMITING Last administered on 06/17/16 17:14; Start 06/16/16 at 21:00; Stop 06/17/16 at 20:59 ; Status DC Fentanyl Citrate (Fentanyl 2ml Vial) 50 mcg PRN Q2HR PRN IV PAIN; Start at 21:00; Stop 06/17/16 at 20:59; Status DC Aspirin (Ecotrin) 81 mg DAILYWBKFT PO Last administered on 06/18/16 08:23; Start 06/17/16 at 11:00 Atorvastatin Calcium (Lipitor) 10 mg QHS PO Last administered on 06/17/16 21: 03; Start 06/17/16 at 21:00 Flecainide Acetate (Tambocor) 100 mg Q12HR PO Last administered on 06/18/16 08 :26; Start 06/17/16 at 11:00 Levothyroxine Sodium (Synthroid) 125 mcg DAILY07 PO Last administered on 06:55; Start 06/17/16 at 07:00 Lorazepam (Ativan) 1 mg TID PRN PRN PO ANXIETY / AGITATION Last administered on 06/17/16 10:50; Start 06/17/16 at 00:30 Metoprolol Tartrate (Lopressor) 25 mg BID PO Last administered on 06/18/16 08: 24; Start 06/17/16 at 01:15 Fish Oil (Fish Oil) 2,000 mg BID PO ; Start 06/17/16 at 11:00 Oxycodone HCl (Roxicodone) 5 mg PRN Q6HRS PRN PO PAIN Last administered on 06/17 21:04; Start 06/17/16 at 00:30; Stop 06/18/16 at 02:15; Status DC Acetaminophen 650 mg 650 mg PRN Q6HRS PRN PO MILD PAIN / TEMP Last administered on 06/17/16 13:06; Start 06/17/16 at 00:45 Sodium Chloride 1,000 ml @ 1,000 mls/hr 1X ONCE IV Last administered on 01:17; Start 06/17/16 at 01:00; Stop 06/17/16 at 01:59; Status DC Ceftriaxone Sodium/Sodium Chloride (Rocephin/Iv Sodium Chloride 0.9% 50ml) 50 ml @ 100 mls/hr Q24H IV ; Start 06/17/16 at 22:00; Stop 06/17/16 at 22:00; Status DC Azithromycin (Zithromax) 500 mg 1X ONCE PO Last administered on 06/17/16 01: 17; Start 06/17/16 at 01:00; Stop 06/17/16 at 01:03; Status DC Azithromycin (Zithromax) 250 mg DAILY PO ; Start 06/18/16 at 09:00; Stop at 09:00; Status DC Flecainide Acetate 100 mg 100 mg ONCE ONCE PO Last administered on 06/17/16 01:23; Start 06/17/16 at 01:15; Stop 06/17/16 at 01:16; Status DC Ceftriaxone Sodium (Rocephin 1gm Ivpb For Omni) 50 ml @ 100 mls/hr ONCE ONCE IV Last administered on 06/17/16 01:24; Start 06/17/16 at 01:15; Stop at 01:44; Status DC Alprazolam (Xanax) 1 mg PRN TID PRN PO ANXIETY / AGITATION; Start 06/17/16 at 11:30 Apixaban (Eliquis) 5 mg DAILY PO Last administered on 06/18/16 08:23; Start at 09:00 Al Hydroxide/Mg Hydroxide 30 ml 30 ml DAILY PO Last administered on 06/18/16 08:22; Start 06/18/16 at 09:00 Magnesium Sulfate/ Dextrose (Magnesium Sulfate PREMIX 2GM) 50 ml @ 25 mls/hr 1X ONCE IV Last administered on 06/17/16 12:29; Start 06/17/16 at 12:00; Stop 06/17/16 at 13:59; Status DC Oxycodone HCl (Roxicodone) 5 mg PRN Q4HRS PRN PO PAIN Last administered on 06/18 08:24; Start 06/18/16 at 02:13 Active Scripts Active Oxycodone Hcl 5 Mg Tablet 5 Mg PO PRN Q6HRS PRN Metoprolol Tartrate 25 Mg Tablet 25 Mg PO BID Flecainide Acetate 50 Mg Tablet 100 Mg PO Q12HR Synthroid (Levothyroxine Sodium) 125 Mcg Tablet 125 Mcg PO DAILY07 Atorvastatin Calcium 10 Mg Tablet 10 Mg PO QHS 30 Days Aspirin Ec (Aspirin) 81 Mg Tablet.dr 81 Mg PO DAILYWBKFT Fish Oil 1,000 Mg Capsule ([place]-3 Fatty Acids/Fish Oil) 1,000 Mg Capsule 2,000 Mg PO BID 30 Days Reported Lorazepam 1 Mg Tablet 1 Mg PO TID PRN PRN Xanax (Alprazolam) 1 Mg Tablet 1 Tab PO PRN TID PRN Eliquis (Apixaban) 5 Mg Tablet 5 Mg PO Maalox Maximum Strength Susp (Mag Hydrox/Al Hydrox/Simeth) 355 Ml Oral.susp 355 Ml PO Vitals/I & O Vital Sign - Last 24 Hours 06/17/16 06/17/16 06/17/16 06/17/16 13:07 15:21 16:24 17:14 Temp 101.9 101.9 Pulse 87 Resp 18 16 16 B/P 117/66 Pulse Ox 96 93 93 O2 Delivery Room Air Room Air Room Air Room Air 06/17/16 06/17/16 06/17/16 06/17/16 17:44 19:00 20:00 21:04 Temp 98.8 98.8 Pulse 86 86 Resp 16 20 B/P 106/57 106/57 Pulse Ox 93 89 O2 Delivery Room Air Room Air Room Air 06/17/16 06/17/16 06/17/16 06/18/16 21:04 21:04 23:00 03:00 Temp 100.0 100.0 100.0 100.0 Pulse 86 89 82 Resp 18 18 B/P 106/57 150/50 141/72 Pulse Ox 94 98 O2 Delivery Room Air Room Air Room Air 06/18/16 06/18/16 06/18/16 06/18/16 07:00 08:24 08:24 08:26 Temp 99.3 99.3 Pulse 77 77 77 Resp 17 B/P 124/62 124/62 124/62 Pulse Ox 93 98 O2 Delivery Room Air Room Air Intake and Output 06/17/16 06/17/16 06/18/16 15:00 23:00 07:00 Intake Total 340 ml Output Total 1100 ml Balance 340 ml -1100 ml JACK BRUNNER III DO Jun 18, 2016 11:13
[2016-06-18 11:15] LABS: BASO # 0.1 x10^3/uL (0.0-0.2); BASO % 1 % (0-3); EOS % 1 % (0-3); HEMATOCRIT 36.2 % (39.0-53.0); HEMOGLOBIN 12.2 g/dL (13.0-17.5); LYMPH # 1.8 x10^3/uL (1.0-4.8); LYMPH % 20 % (24-48); MEAN CORPUSCULAR HEMOGLOBIN 30 pg (25-35); MEAN CORPUSCULAR HGB CONC 34 g/dL (31-37); MEAN CORPUSCULAR VOLUME 88 fL (79-100); MONO % 15 % (0-9); NEUT % 63 % (31-73); PLATELET COUNT 375 x10^3/uL (140-400); RED BLOOD COUNT 4.12 x10^6/uL (4.30-5.70); WHITE BLOOD COUNT 8.7 x10^3/uL (4.0-11.0)
[2016-06-18 11:37] LABS: ALBUMIN 2.9 g/dL (3.4-5.0); ALBUMIN/GLOBULIN RATIO 0.7 (1.0-1.7); CALCIUM 8.9 mg/dL (8.5-10.1); CREATININE 0.9 mg/dL (0.7-1.3); GFR 87.9; MAGNESIUM 1.7 mg/dL (1.8-2.4); POTASSIUM 3.5 mmol/L (3.5-5.1); TOTAL BILIRUBIN 0.4 mg/dL (0.2-1.0); TOTAL PROTEIN 7.1 g/dL (6.4-8.2)
[2016-06-18 15:00] VITALS: BP 140/76
--- NOTE | 2016-06-18 15:31 | RAD ---
INDICATION: Left leg pain COMPARISON: None. TECHNIQUE: Grayscale, color and doppler ultrasound images were obtained of the left lower extremity venous vasculature. LEFT: No thrombus identified in the common femoral vein, femoral vein, popliteal vein or visualized calf veins. IMPRESSION: 1. No thrombus identified in deep venous system of the left lower extremity.
--- NOTE | 2016-06-24 09:17 | DS ---
DATE OF DISCHARGE: 06/18/2016 ADMISSION DIAGNOSIS: Chest pain. DISCHARGE DIAGNOSES: 1. Atypical chest pain, suspect . 2. History of atrial fibrillation. 3. History of pericardial stripping. 4. History of cardiac ablation few months ago. HOSPITAL COURSE: The patient is a pleasant 55-year-old male who presented with chest pain. He has known cardiac disease, in particularly he got AFib and he had to have an ablation. We admitted the patient, we consulted cardiology, did serial enzymes, serial EKGs. Basically, his workup was negative. We suspect he has an element of to discharge. DISPOSITION: Home. ACTIVITY: As tolerated. DIET: Low sodium. MEDICATIONS: Please see the MRAD. TOTAL TIME ON DISCHARGE: 34 minutes. JACK BRUNNER DO DR: MICHAEL/lisa JOB#: [id number] / [id number]
== END 2016-06-18 14:15 | disposition home or self-care (01) | DRG 178 ==
LOC: ER 16:07 → OBSVTOIN 20:55 → ED HOLD 20:55 → 6 SOUTH 06-17 12:26
PROVIDERS: ADMIT Internal Medicine; ATTEND Internal Medicine
DX: J69.0 Pneumonitis due to inhalation of food and vomit (principal); C81.90 Hodgkin lymphoma, unspecified, unspecified site; I48.0 Paroxysmal atrial fibrillation; I10 Essential (primary) hypertension; F41.9 Anxiety disorder, unspecified; E03.9 Hypothyroidism, unspecified; K21.9 Gastro-esophageal reflux disease without esophagitis; Z82.49 Family history of ischemic heart disease and other diseases of the circulatory system; Z90.81 Acquired absence of spleen; Z88.5 Allergy status to narcotic agent; Z86.73 Personal history of transient ischemic attack (TIA), and cerebral infarction without residual deficits; Z87.11 Personal history of peptic ulcer disease; Z90.49 Acquired absence of other specified parts of digestive tract; Z79.899 Other long term (current) drug therapy; Z79.82 Long term (current) use of aspirin; R07.81 Pleurodynia
CPT/HCPCS: 36415; 71010; 71250; 80053; 82553; 83735; 83880; 84484; 85027; 85610; 85651; 87804; 93005; 93971; 96361; 96365; 96375; J0690; J1885; J2405; J3010; J7030; J7060; Q0144; 99285-25

== ENCOUNTER 2018-04-26 21:27 | Emergency (ER) | payer OTHER ==
[~2018-04-26] VITALS: Ht 180.3 cm; Wt 81.6 kg
[~2018-04-26 21:27] MED LIST changes: -AMLO5TAB2 PO; +AMLO5TAB7 PO; +ASPI-612 PO; -ASPI325T4 PO; +ASPI325T8 PO; -ASPI81TA9 PO; +CARV6.2511 PO; -CARV6.252 PO; +HYDR-2145 PO; -HYDR25TA9 PO; +METO-247 PO; -METO100T11 PO; -METO50TA2 PO; +METO50TA6 PO; -OXYC5TAB PO; +OXYC5TAB4 PO
[2018-04-26 21:30] VITALS: BP 181/103
--- NOTE | 2018-04-26 21:45 | PHYS DOC ---
Past Medical History Past Medical History: A-Fib, Anxiety, Arrhythmia, Cancer, Hypertension, Other Additional Past Medical Histor: SPONT PNEUMO, HODGKINS X2, PERICARDIAL STRIPPING, SVT Past Surgical History: Appendectomy, Splenectomy, Other Additional Past Surgical Histo: TAIL OF PANCREAS REMOVED, PERICARDIAL STRIPPING , Alcohol Use: Sober Drug Use: None Adult General Chief Complaint Chief Complaint: GI PROBLEM HPI HPI Patient is a 57 year old male who presents with esophageal foreign body. Patient was eating a chili dog several hours ago and has been unable to swallow and feel things past since that time. Patient has a previous history of esophageal foreign body obstruction. Patient has had previous esophageal dilation multiple times, last time was approximately 2 years ago. There is mild to moderate discomfort with the foreign body. Nothing seems to make the symptoms better or worse. [] Review of Systems Review of Systems Constitutional: Denies fever or chills [] Eyes: Denies change in visual acuity, redness, or eye pain [] HENT: Denies nasal congestion or sore throat [] Respiratory: Denies cough or shortness of breath [] Cardiovascular: No chest pain or palpitations[] GI: See history of present illness[] : Denies dysuria or hematuria [] Musculoskeletal: Denies back pain or joint pain [] Integument: Denies rash or skin lesions [] Neurologic: Denies headache, focal weakness or sensory changes [] Endocrine: Denies polyuria or polydipsia [] All other systems were reviewed and found to be within normal limits, except as documented in this note. Current Medications Current Medications Current Medications Medications (Trade) Dose Ordered Sig/Fernanda Start Time Stop Time Status Last Admin Dose Admin Simethicone/ Sodium Bicarb/ Citric Ac (E-Z-Gas) 1 packet 1X ONCE 04/26/18 22:00 04/26/18 22:01 DC 04/26/18 21:57 1 PACKET Allergies Allergies Allergies Coded Allergies Type Severity Reaction Last Updated Verified morphine Allergy Severe blisters, sob 03/15/16 Yes Physical Exam Physical Exam Constitutional: Well developed, well nourished, no acute distress, non-toxic appearance. [] HENT: Normocephalic, atraumatic, bilateral external ears normal, oropharynx moist, no oral exudates, nose normal. [] Eyes: PERRLA, EOMI, conjunctiva normal, no discharge. [] Neck: Normal range of motion, no tenderness, supple, no stridor. [] Cardiovascular:Heart rate regular rhythm, no murmur [] Lungs & Thorax: Bilateral breath sounds clear to auscultation [] Abdomen: Bowel sounds normal, soft, no tenderness, no masses, no pulsatile masses. [] Skin: Warm, dry, no erythema, no rash. [] Back: No tenderness, no CVA tenderness. [] Extremities: No tenderness, no cyanosis, no clubbing, ROM intact, no edema. [] Neurologic: Alert and oriented X 3, normal motor function, normal sensory function, no focal deficits noted. [] Psychologic: Affect normal, judgement normal, mood normal. [] Current Patient Data Vital Signs Vital Signs Date Time Temp Pulse Resp B/P (MAP) Pulse Ox O2 Delivery O2 Flow Rate FiO2 04/26/18 21:30 98.2 107 18 181/103 (129) 96 Room Air 98.2 EKG EKG [] Radiology/Procedures Radiology/Procedures [] Course & Med Decision Making Course & Med Decision Making Pertinent Labs and Imaging studies reviewed. (See chart for details) ED course: Patient arrived, was placed in bed, tolerated exam well. Patient was given EZ Gas which was able to dislodge the esophageal foreign body. Patient was able to drink fluids without any discomfort afterwards. Patient was discharged in good condition. Medical decision making: No evidence of intractable esophageal foreign body. No evidence of perforation.[] Dragon Disclaimer Dragon Disclaimer This electronic medical record was generated, in whole or in part, using a voice recognition dictation system. Departure Departure Impression: Primary Impression: Esophageal foreign body Disposition: 01 HOME, SELF-CARE Condition: GOOD Referrals: COURTNEY RYAN MD (PCP) Follow-up in 2 days PATRICIA KAYE MD Patient Instructions: Esophageal Stricture, Swallowed Foreign Body, Adult Additional Instructions: Follow-up with your regular doctor and GI in 2 days. Call tomorrow to set the follow-up appointment. Cut your food into small pieces. Avoid hot dogs until evaluated by GI. Return to the ER if unable to swallow or any other concerns. Problem Qualifiers Primary Impression: Esophageal foreign body Encounter type: initial encounter Qualified Codes: T18.108A - Unspecified foreign body in esophagus causing other injury, initial encounter DARRIUS EDEN DO Apr 26, 2018 21:45
[2018-04-26] MEDS ORDERED: SIMETHICONE/SOD BICARB/CITRIC ACID PACKET. PO ONE (22:00)
== END 2018-04-26 22:19 | disposition home or self-care (01) ==
LOC: ER 21:27
DX: T18.128A Food in esophagus causing other injury, initial encounter (principal); I48.91 Unspecified atrial fibrillation; I10 Essential (primary) hypertension; Z88.5 Allergy status to narcotic agent; X58.XXXA Exposure to other specified factors, initial encounter; Y93.89 Activity, other specified; Y92.89 Other specified places as the place of occurrence of the external cause; Y99.8 Other external cause status
CPT/HCPCS: 99283

== ENCOUNTER 2018-09-18 19:39 | Emergency (ER) | payer OTHER ==
[~2018-09-18] VITALS: Ht 180.3 cm; Wt 81.6 kg
[~2018-09-18 19:39] MED LIST changes: -AMOX1TAB61 PO; -IV RINGERS,LACTATED 1000ML 1,000 ML IV SCH; -LEVO750T31 PO; -LIDOCAINE 1% PF 2 ML VIAL. ID PRN; -PROCHLORPERAZINE 10 MG/2 ML VIAL. IV PRN; -PROPOFOL 40 ML IV ONE; -fentaNYL PF VIAL 100 MCG/2 ML VIAL IV PRN
[2018-09-18] MEDS ORDERED: fentaNYL PF VIAL 100 MCG/2 ML VIAL IV ONE ×2 (20:15→21:30)
[2018-09-18] MEDS ORDERED: GLUCAGON,HUMAN RECOMBINANT 1 MG/ML VIAL. IV ONE (20:15)
[2018-09-18] MEDS ORDERED: IV NORMAL SALINE 1000ML BAG 1,000 ML IV ONE (20:15)
--- NOTE | 2018-09-18 20:26 | PHYS DOC ---
Past Medical History Past Medical History: A-Fib, Anxiety, Arrhythmia, Cancer, Hypertension, Other Additional Past Medical Histor: SPONT PNEUMO, HODGKINS X2, PERICARDIAL STRIPPING, SVT Past Surgical History: Appendectomy, Splenectomy, Other Additional Past Surgical Histo: TAIL OF PANCREAS REMOVED, PERICARDIAL STRIPPING, Alcohol Use: Occasionally Drug Use: None Adult General Chief Complaint Chief Complaint: COUGH HPI HPI Patient is a 58 year old male who presents with cough streaked with bright red blood. He has a history of Hodgkin Lymphoma in 1980 and 1990 that was treated with radiation and currently in remission. He says that he has had a number of complications from radiation therapy one of which has been esophageal stricture. Tonight he was eating santa-wrapped fillet mignon when he felt the food get stuck. He has had this happen in the past and has required endoscopy to remove the food bolus. At home, he tried drinking jo-ann seltzer but felt the contents b ack up to the point he felt like he was experiencing laryngospasm and starting having coughing spell productive of blood tinged sputum. He is currently complaining of burning pain from the epigastric region to sternum. Denies shortness of breath, palpitations, or lower extremity swelling at this time. Review of Systems Review of Systems Constitutional: Denies fever or chills [] Eyes: Denies blurred vision or diplopia [] HENT: Reports sore throat, dysphagia [] Respiratory: Reports cough and hemoptysis. Denies shortness of breath [] Cardiovascular: Reports burning chest/epigastric pain. Denies palpitations or dizziness. [] GI: Reports epigastric burning and sensation of food bolus. Denies nausea or vomiting. [] Integument: Denies rash or skin lesions [] Neurologic: Denies headache, focal weakness or sensory changes [] Complete review of systems found to be within normal limits, except as documented in this note. Current Medications Current Medications Current Medications Medications (Trade) Dose Ordered Sig/Fernanda Start Time Stop Time Status Last Admin Dose Admin Fentanyl Citrate (Fentanyl 2ml Vial) 50 mcg 1X ONCE 09/18/18 21:30 09/18/18 21:32 DC 09/18/18 22:15 50 MCG Glucagon (Glucagen) 1 mg 1X ONCE 09/18/18 20:15 09/18/18 20:27 DC Sodium Chloride 1,000 ml @ 1,000 mls/hr 1X ONCE 09/18/18 20:15 09/18/18 21:14 DC 09/18/18 20:45 1,000 MLS/HR Allergies Allergies Allergies Coded Allergies Type Severity Reaction Last Updated Verified morphine Allergy Severe blisters, sob 03/15/16 Yes Physical Exam Physical Exam Constitutional: Well developed, well nourished, mild acute distress, non-toxic appearance. [] HENT: Normocephalic, atraumatic, bilateral external ears normal, oropharynx moist and erythematous, no oral exudates, nose normal. [] Eyes: EOMI, conjunctiva normal, no discharge. [] Neck: Supple and nontender [] Cardiovascular:Heart rate regular rhythm, no murmur [] Lungs & Thorax: Faint crackles at right lower lung silva that seem to have resolved with coughing, breath sounds clear otherwise [] Abdomen: Soft and nontender. [] Skin: Warm, dry, no erythema, no rash. [] Extremities: Radial pulses +2 b/l, no cyanosis, cap refill < 2s[] Neurologic: Alert and oriented, normal motor function, normal sensory function, no focal deficits noted. [] Psychologic: Affect normal, judgement normal, mood normal. [] Current Patient Data Vital Signs Vital Signs Date Time Temp Pulse Resp B/P (MAP) Pulse Ox O2 Delivery O2 Flow Rate FiO2 09/18/18 21:44 102 170/96 (120) 96 Room Air 09/18/18 19:47 97.9 18 97.9 Lab Values Laboratory Tests Test 09/18/18 20:40 White Blood Count 7.2 x10^3/uL (4.0-11.0) Red Blood Count 4.29 x10^6/uL (4.30-5.70) L Hemoglobin 13.6 g/dL (13.0-17.5) Hematocrit 40.0 % (39.0-53.0) Mean Corpuscular Volume 93 fL (79-100) Mean Corpuscular Hemoglobin 32 pg (25-35) Mean Corpuscular Hemoglobin Concent 34 g/dL (31-37) Red Cell Distribution Width 14.0 % (11.5-14.5) Platelet Count 314 x10^3/uL (140-400) Neutrophils (%) (Auto) 53 % (31-73) Lymphocytes (%) (Auto) 31 % (24-48) Monocytes (%) (Auto) 14 % (0-9) H Eosinophils (%) (Auto) 2 % (0-3) Basophils (%) (Auto) 1 % (0-3) Neutrophils # (Auto) 3.8 x10^3uL (1.8-7.7) Lymphocytes # (Auto) 2.2 x10^3/uL (1.0-4.8) Monocytes # (Auto) 1.0 x10^3/uL (0.0-1.1) Eosinophils # (Auto) 0.2 x10^3/uL (0.0-0.7) Basophils # (Auto) 0.1 x10^3/uL (0.0-0.2) Sodium Level 140 mmol/L (136-145) Potassium Level 3.6 mmol/L (3.5-5.1) Chloride Level 100 mmol/L (98-107) Carbon Dioxide Level 25 mmol/L (21-32) Anion Gap 15 (6-14) H Blood Urea Nitrogen 11 mg/dL (8-26) Creatinine 0.8 mg/dL (0.7-1.3) Estimated GFR (Cockcroft-Gault) 99.6 BUN/Creatinine Ratio 14 (6-20) Glucose Level 131 mg/dL (70-99) H Calcium Level 8.9 mg/dL (8.5-10.1) Magnesium Level 1.7 mg/dL (1.8-2.4) L Total Bilirubin 0.6 mg/dL (0.2-1.0) Aspartate Amino Transferase (AST) 34 U/L (15-37) Alanine Aminotransferase (ALT) 33 U/L (16-63) Alkaline Phosphatase 165 U/L (46-116) H Total Protein 8.0 g/dL (6.4-8.2) Albumin 3.9 g/dL (3.4-5.0) Albumin/Globulin Ratio 1.0 (1.0-1.7) Laboratory Tests 09/18/18 20:40 Laboratory Tests 09/18/18 20:40 EKG EKG [] Radiology/Procedures Radiology/Procedures Chest PA and Lateral: Trachea midline. No osseous deformity. Cardiac silhouette not enlarged. No evidence of effusion, consolidation or foreign body. Calcified mediastinal hilar lymph nodes and plaquing of the aorta which are uncharged from films on 06/16/16. No acute cardiopulmonary process. Preliminary report provided by ED physician[] Course & Med Decision Making Course & Med Decision Making Pertinent Labs and Imaging studies reviewed. (See chart for details) Patient is a 58 year old male with past medical history notable for Hodgkin Lymphoma treated with surgery and radiation and is now in remission. Therapy has been complicated by esophageal stricture formation secondary to radiation therapy. Tonight he was eating steak for dinner when developed food bolus and had a coughing spell productive of blood tinged sputum. Chest X-ray showed calcified mediastinal hilar lymph nodes and plaquing of the aorta which are uncharged from films on 06/16/16 but no acute consolidation, aspiration, mediastinal widening or effusion. CBC and CMP were unremarkable. Patient refused glucagon as he states this has not worked in the past and makes him feel terrible. Pain addressed with interval improvement. Endoscopy team Patient stable for discharge with outpatient follow-up with PCP. Discussed findings and plan with patient, who acknowledge understanding and agreement. [] Dragon Disclaimer Dragon Disclaimer This electronic medical record was generated, in whole or in part, using a voice recognition dictation system. Departure Departure Impression: Primary Impression: Food impaction of esophagus Disposition: HOME, SELF-CARE (to Outpatient GI lab) Condition: STABLE Referrals: NO PCP (PCP) LINDSEY MCLEAN MD Patient Instructions: Aspiration Pneumonia, Esophageal Stricture Additional Instructions: Cannot fully exclude aspiration after food bolus. Will place you in empiric antibiotics. Please follow closely with your family physician. Scripts Levofloxacin (LEVAQUIN) 750 Mg Tablet 1 TAB PO DAILY, #7 TAB Prov: LINDSEY KIRBY DO 09/18/18 Problem Qualifiers Primary Impression: Food impaction of esophagus Encounter type: initial encounter Qualified Codes: T18.128A - Food in esophagus causing other injury, initial encounter LINDSEY KIRBY DO September 18, 2018 20:26
[2018-09-18 20:53] LABS: BASO # 0.1 x10^3/uL (0.0-0.2); BASO % 1 % (0-3); EOS # 0.2 x10^3/uL (0.0-0.7); EOS % 2 % (0-3); HEMOGLOBIN 13.6 g/dL (13.0-17.5); LYMPH # 2.2 x10^3/uL (1.0-4.8); LYMPH % 31 % (24-48); MEAN CORPUSCULAR HEMOGLOBIN 32 pg (25-35); MEAN CORPUSCULAR HGB CONC 34 g/dL (31-37); MEAN CORPUSCULAR VOLUME 93 fL (79-100); MONO % 14 % (0-9); NEUT # 3.8 x10^3uL (1.8-7.7); NEUT % 53 % (31-73); PLATELET COUNT 314 x10^3/uL (140-400); RED BLOOD COUNT 4.29 x10^6/uL (4.30-5.70); WHITE BLOOD COUNT 7.2 x10^3/uL (4.0-11.0)
[2018-09-18 21:01] LABS: CALCIUM 8.9 mg/dL (8.5-10.1); CREATININE 0.8 mg/dL (0.7-1.3); GFR 99.6; POTASSIUM 3.6 mmol/L (3.5-5.1)
[2018-09-18 21:07] LABS: ALBUMIN 3.9 g/dL (3.4-5.0); MAGNESIUM 1.7 mg/dL (1.8-2.4); TOTAL BILIRUBIN 0.6 mg/dL (0.2-1.0)
[2018-09-18] MEDS ORDERED: AMOX1TAB61 PO (21:40)
[2018-09-18 21:44] VITALS: BP 170/96
[2018-09-18] MEDS ORDERED: LEVO750T31 PO (21:55)
--- NOTE | 2018-09-18 23:28 | RAD ---
PA and lateral chest radiographs 09/18/2018 CLINICAL HISTORY: Possible aspiration. PA and lateral digital radiographs of the chest were obtained. Comparison study is dated 06/16/2016. The patient is post median sternotomy. The cardiac silhouette is normal in size. The thoracic aorta is mildly tortuous. Calcified hilar and mediastinal lymph nodes are unchanged. Apical pleural thickening is seen bilaterally, unchanged. No acute pulmonary infiltrate is seen. No pleural effusion or pneumothorax is noted. Mild degenerative changes are seen involving the thoracic spine. IMPRESSION: No acute pulmonary infiltrate is seen. Electronically signed by: Luiz Timmons MD (09/18/2018 11:25 PM) [facility]
== END 2018-09-18 22:23 | disposition home or self-care (01) ==
LOC: ER 19:39
DX: T18.128A Food in esophagus causing other injury, initial encounter (principal); I10 Essential (primary) hypertension; F41.9 Anxiety disorder, unspecified; I48.91 Unspecified atrial fibrillation; Z88.5 Allergy status to narcotic agent; X58.XXXA Exposure to other specified factors, initial encounter; Y93.89 Activity, other specified; Y92.89 Other specified places as the place of occurrence of the external cause; Y99.8 Other external cause status
CPT/HCPCS: 36415; 71046; 80053; 83735; 85025; 96374; 96376; 99285; J3010; J7030

== ENCOUNTER → 2018-09-18 | Outpatient (CLI) | payer OTHER ==
[~2018-09-18] MED LIST changes: +AMLO5TAB10 PO; -AMLO5TAB7 PO; +AMOX1TAB61 PO; +IV RINGERS,LACTATED 1000ML 1,000 ML IV SCH; +LEVO750T31 PO; +LIDOCAINE 1% PF 2 ML VIAL. ID PRN; +PROCHLORPERAZINE 10 MG/2 ML VIAL. IV PRN; +PROPOFOL 40 ML IV ONE; +fentaNYL PF VIAL 100 MCG/2 ML VIAL IV PRN
--- NOTE | 2018-09-18 22:51 | PDOC2 ---
CONSULT Date of Consult Date of Consult DATE: 09/18/18 TIME: 22:42 Reason for Consult Reason for Consult: Impacted food bolus. History of Present Illness Reason for Visit: 58 y/o male with impacted food bolus, historically steak. Has happened in the past, lastly November 2015 with me. EGD then with stricture; did not f/u for more definitive treatment. Unclear whether peptic or post-radiation issue. Prior episodes and told stricture; etiology not clear, but maybe component of reflux and radiation. No PPI on regular basis, but when heartburn is really bad. No PUD, GB or liver disease. H/o benign pancreatic cyst; tail resected. No tobacco use. Occasional alcohol. No D, C, H, M. Recent hemoccult negative. 2 prior normal colonoscopies. GI family history positive for pancreatic cancer in father. Wt/appetite OK. Several prior EGD's at various institutions. Takes 325mg ASA daily; no other NSAIDs. Past Medical History Cardiovascular: AFIB, HTN, Other (restrictive pericarditis) Pulmonary: Pneumonia, Other (pneumothorax x 2) CENTRAL NERVOUS SYSTEM: TIA Heme/Onc: Anemia NOS, Cancer (Hodgkins, relapsed once and retreated) Psych: Anxiety Musculoskeletal: Osteoarthritis Rheumatologic: No pertinent hx Infectious disease: No pertinent hx Renal/: Other (nephrolithiasis) Endocrine: Hypothyroidism Past Surgical History Past Surgical History: Appendectomy, Other (staging lap/splenectomy, pancreatic resection, tube thoracostomy x 2, pericardial stripping) Family History Family History: Cancer, Coronary Artery Disease, Hypertension, Other Social History No ALCOHOL: none Drugs: None Lives: with Family Domestic Violence: Neg Current Medications Current Medications Current Medications Propofol 40 ml @ As Directed STK-MED ONCE IV ; Start 09/18/18 at 22:40; Stop 09/18/18 at 22:41; Status DC Active Scripts Active Levaquin (Levofloxacin) 750 Mg Tablet 1 Tab PO DAILY Oxycodone Hcl Immed.release (Oxycodone Hcl) 5 Mg Tablet 5 Mg PO PRN Q6HRS PRN Metoprolol Tartrate 25 Mg Tablet 25 Mg PO BID Flecainide Acetate 50 Mg Tablet 100 Mg PO Q12HR Synthroid (Levothyroxine Sodium) 125 Mcg Tablet 125 Mcg PO DAILY07 Atorvastatin Calcium 10 Mg Tablet 10 Mg PO QHS 30 Days Aspirin Ec (Aspirin) 81 Mg Tablet. 81 Mg PO DAILYWBKFT Fish Oil 1,000 Mg Capsule (Powers-3 Fatty Acids/Fish Oil) 1,000 Mg Capsule 2,000 Mg PO BID 30 Days Reported Lorazepam 1 Mg Tablet 1 Mg PO TID PRN PRN Xanax (Alprazolam) 1 Mg Tablet 1 Tab PO PRN TID PRN Eliquis (Apixaban) 5 Mg Tablet 5 Mg PO Maalox Maximum Strength Susp (Mag Hydrox/Al Hydrox/Simeth) 355 Ml Oral.susp 355 Ml PO Allergies Allergies: Coded Allergies: morphine (Verified Allergy, Severe, blisters, sob, 03/15/16) ROS Review of System Otherwise negative. Physical Exam General: Alert, Oriented X3, Cooperative, mild distress Lungs: Clear to auscultation Heart: Regular rate, Normal S1, Normal S2, No murmurs Abdomen: Normal bowel sounds, No tenderness, No hepatosplenomegaly, No masses Extremities: No cyanosis, No edema Skin: No significant lesion Neuro: Normal gait, Normal speech, Strength at 5/5 X4 ext, Normal tone, Sensation intact, Cranial nerves 3-12 NL, Reflexes 2+ Psych/Mental Status: Mental status NL, Mood NL MUSCULOSKELETAL: No deformity, No swelling Assessment/Plan Assessment/Plan IMP: Impacted food bolus H/o stricture PLAN: EGD LINDSEY MCLEAN MD September 18, 2018 22:51
--- NOTE | 2018-09-18 23:14 | PDOC4 ---
PROCEDURE Procedure EGD/FB Indication: Impacted food bolus. Meds: per anesthesia Findings: E--Food in distal esophagus; corn atop and meat not seen. Able to push into stomach with gentle pressure. After passage, stricture at GEJ (40cm) with trauma from impacted meat. As last time, appears more peptic. G--Meat visualized in body. Otherwise normal. D--Normal bulb. Annette. well. IMP: Impacted food bolus, resolved. Esophageal stricture, traumatized by bolus, not dilated this occasion. REC: Home Soft foods, chew well. OTC PPI daily. F/u my office in 3-4 weeks. LINDSEY MCLEAN MD September 18, 2018 23:14
[2018-09-18 23:38] VITALS: BP 166/88
== END | disposition home or self-care (01) ==
LOC: OPSVCOP 22:20
PROVIDERS: ATTEND Internal Medicine Gastroenterology
DX: T18.128A Food in esophagus causing other injury, initial encounter (principal); X58.XXXA Exposure to other specified factors, initial encounter; Y93.89 Activity, other specified; Y92.89 Other specified places as the place of occurrence of the external cause; Y99.8 Other external cause status
CPT/HCPCS: 43247; J2704; J7120

== ENCOUNTER 2019-11-12 10:03 | Inpatient (IN) | payer OTHER ==
[~2019-11-12] VITALS: Ht 180.3 cm; Wt 76.1 kg
[~2019-11-12 10:03] MED LIST changes: +AMOX1TAB61 PO; -ASPI-612 PO; +ASPI-886 PO; -DIGO125T PO; +DIGO125T3 PO; +LEVO750T31 PO
[2019-11-12] MEDS ORDERED: IV NORMAL SALINE 500ML BAG 500 ML IV ONE (10:45)
[2019-11-12 10:46] LABS: BASO # 0.1 x10^3/uL (0.0-0.2); BASO % 1 % (0-3); EOS # 0.1 x10^3/uL (0.0-0.7); EOS % 1 % (0-3); HEMATOCRIT 40.1 % (39.0-53.0); HEMOGLOBIN 14.3 g/dL (13.0-17.5); LYMPH # 1.7 x10^3/uL (1.0-4.8); LYMPH % 24 % (24-48); MEAN CORPUSCULAR HEMOGLOBIN 34 pg (25-35); MEAN CORPUSCULAR HGB CONC 36 g/dL (31-37); MEAN CORPUSCULAR VOLUME 95 fL (79-100); MONO # 0.8 x10^3/uL (0.0-1.1); MONO % 11 % (0-9); NEUT # 4.5 x10^3/uL (1.8-7.7); NEUT % 63 % (31-73); PLATELET COUNT 365 x10^3/uL (140-400); RED BLOOD COUNT 4.21 x10^6/uL (4.30-5.70); RED CELL DISTRIBUTION WIDTH 13.6 % (11.5-14.5); WHITE BLOOD COUNT 7.2 x10^3/uL (4.0-11.0)
--- NOTE | 2019-11-12 11:02 | RAD ---
EXAM: CHEST ONE VIEW. HISTORY: Chest pain. COMPARISON: 09/18/2018. FINDINGS: A frontal view of the chest is obtained. There are no confluent infiltrates. There is no pneumothorax or pleural effusion. The heart is not enlarged. Calcified lymph nodes likely reflect old granulomatous disease. Median sternotomy changes are noted. There are atherosclerotic calcifications of the aorta. IMPRESSION: 1. No confluent infiltrates. Electronically signed by: Daysi Robertson MD (11/12/2019 10:59 AM) [id number]
[2019-11-12 11:04] LABS: CALCIUM 8.8 mg/dL (8.5-10.1); GFR 76.7; POTASSIUM 4.1 mmol/L (3.5-5.1)
[2019-11-12 11:06] LABS: ALBUMIN 3.5 g/dL (3.4-5.0); ALBUMIN/GLOBULIN RATIO 0.9 (1.0-1.7); TOTAL BILIRUBIN 0.7 mg/dL (0.2-1.0); TOTAL PROTEIN 7.5 g/dL (6.4-8.2)
[2019-11-12] MEDS ORDERED: ONDANSETRON PF 4 MG/2 ML VIAL. IVP ONE (11:15)
--- NOTE | 2019-11-12 11:43 | PHYS DOC ---
Past Medical History Past Medical History: A-Fib, Anxiety, Arrhythmia, Cancer, Hypertension, Other Additional Past Medical Histor: SPONT PNEUMO, HODGKINS X2, PERICARDIAL STRIPPING, SVT Past Surgical History: Appendectomy, Splenectomy, Other Additional Past Surgical Histo: TAIL OF PANCREAS REMOVED, PERICARDIAL STRIPPING, Smoking Status: Never Smoker Alcohol Use: Heavy Additional Information: 6 PACK OF BEER AND 3 SHOTS OF WHISKEY DAILY Drug Use: None General Adult EDM: Chief Complaint: CHEST PAIN HPI: HPI: 59-year-old male presenting to the emergency department today with chest pain. He describes it as a dull aching pressure in his chest associated with nausea. It is associated with shortness of breath. Started about 2 hours ago. He has been drinking again after suffering from alcoholism and then being sober for about a year. He is noticed that he has had some withdrawal symptoms this morning. Last night he drank approximately 2-3 shots of whiskey. Review of systems is negative for abdominal pain vomiting. Positive for a mild tremor. Negative for headache or neck stiffness. Positive for chest pain with shortness of breath. He denies fevers or chills. All other review of systems negative. ED course: 59-year-old male presenting with chest pain having some tremors from alcohol withdrawal. On arrival EKG obtained and reviewed by myself shows sinus tachycardia. ST segments are not suggestive of acute ischemia. On arrival the patient's temperature is within normal limits. He is mildly tachycardic. Breathing 100% on room air. His blood pressure is elevated at 180/84. On examination the patient is well-appearing with a minimal tremor. He is not in any distress. Breathing comfortably and speaking in full sentences. Chest x- ray and blood work ordered. Patient was given Ativan and Zofran here in the emergency department. Blood work shows normal white blood cell count. Hemoglobin 14.3. Chemistry panel is unremarkable. Troponin within normal limits. Chest x-ray unremarkable. Given his pain and symptoms of withdrawal we will admit him for serial troponins cardiology consultation and treatment for alcohol withdrawal. Heart Score: HEART Score for Chest Pain: HEART Score for Chest Pain Response (Comments) Value History Moderately Suspicious 1 ECG Nonspecific Repolarizatio 1 Age >45 - < 65 1 Risk Factors 1 or 2 Risk Factors 1 Troponin < Normal Limit 0 Total 4 Risk Factors: Risk Factors: DM, Current or recent (<one month) smoker, HTN, HLP, family history of CAD, obesity. Risk Scores: Score 0 - 3: 2.5% MACE over next 6 weeks - Discharge Home Score 4 - 6: 20.3% MACE over next 6 weeks - Admit for Clinical Observation Score 7 - 10: 72.7% MACE over next 6 weeks - Early Invasive Strategies Current Medications: Current Medications Medications (Trade) Dose Ordered Sig/Fernanda Start Time Stop Time Status Last Admin Dose Admin Lorazepam (Ativan Inj) 1 mg PRN Q30MIN PRN 11/12/19 11:15 11/12/19 11:21 1 MG Ondansetron HCl (Zofran) 4 mg 1X ONCE 11/12/19 11:15 11/12/19 11:16 DC 11/12/19 11:21 4 MG Sodium Chloride 500 ml @ 500 mls/hr 1X ONCE 11/12/19 10:45 11/12/19 11:44 11/12/19 11:04 500 MLS/HR Allergies: Allergies: Allergies Coded Allergies Type Severity Reaction Last Updated Verified morphine Allergy Severe blisters, sob 03/15/16 Yes Physical Exam: PE: Constitutional: Well developed, well nourished, no acute distress, non-toxic appearance. [] HENT: Normocephalic, atraumatic, bilateral external ears normal, oropharynx moist, no oral exudates, nose normal. [] Eyes: PERRLA, EOMI, conjunctiva normal, no discharge. [] Neck: Normal range of motion, no tenderness, supple, no stridor. [] Cardiovascular:Heart rate regular rhythm, no murmur [] Lungs & Thorax: Bilateral breath sounds clear to auscultation [] Abdomen: Bowel sounds normal, soft, no tenderness, no masses, no pulsatile masses. [] Skin: Warm, dry, no erythema, no rash. [] Back: No tenderness, no CVA tenderness. [] Extremities: No tenderness, no cyanosis, no clubbing, ROM intact, no edema. [] Neurologic: Alert and oriented X 3, normal motor function, normal sensory funct ion, no focal deficits noted. [] Psychologic: Affect normal, judgement normal, mood normal. [] Current Patient Data: Labs: Laboratory Tests Test 11/12/19 10:15 White Blood Count 7.2 x10^3/uL (4.0-11.0) Red Blood Count 4.21 x10^6/uL (4.30-5.70) L Hemoglobin 14.3 g/dL (13.0-17.5) Hematocrit 40.1 % (39.0-53.0) Mean Corpuscular Volume 95 fL (79-100) Mean Corpuscular Hemoglobin 34 pg (25-35) Mean Corpuscular Hemoglobin Concent 36 g/dL (31-37) Red Cell Distribution Width 13.6 % (11.5-14.5) Platelet Count 365 x10^3/uL (140-400) Neutrophils (%) (Auto) 63 % (31-73) Lymphocytes (%) (Auto) 24 % (24-48) Monocytes (%) (Auto) 11 % (0-9) H Eosinophils (%) (Auto) 1 % (0-3) Basophils (%) (Auto) 1 % (0-3) Neutrophils # (Auto) 4.5 x10^3/uL (1.8-7.7) Lymphocytes # (Auto) 1.7 x10^3/uL (1.0-4.8) Monocytes # (Auto) 0.8 x10^3/uL (0.0-1.1) Eosinophils # (Auto) 0.1 x10^3/uL (0.0-0.7) Basophils # (Auto) 0.1 x10^3/uL (0.0-0.2) Sodium Level 137 mmol/L (136-145) Potassium Level 4.1 mmol/L (3.5-5.1) Chloride Level 98 mmol/L (98-107) Carbon Dioxide Level 28 mmol/L (21-32) Anion Gap 11 (6-14) Blood Urea Nitrogen 15 mg/dL (8-26) Creatinine 1.0 mg/dL (0.7-1.3) Estimated GFR (Cockcroft-Gault) 76.7 BUN/Creatinine Ratio 15 (6-20) Glucose Level 142 mg/dL (70-99) H Calcium Level 8.8 mg/dL (8.5-10.1) Total Bilirubin 0.7 mg/dL (0.2-1.0) Aspartate Amino Transferase (AST) 41 U/L (15-37) H Alanine Aminotransferase (ALT) 39 U/L (16-63) Alkaline Phosphatase 163 U/L (46-116) H Troponin I Quantitative < 0.017 ng/mL (0.000-0.055) Total Protein 7.5 g/dL (6.4-8.2) Albumin 3.5 g/dL (3.4-5.0) Albumin/Globulin Ratio 0.9 (1.0-1.7) L Laboratory Tests 11/12/19 10:15 Laboratory Tests 11/12/19 10:15 Vital Signs: Vital Signs Date Time Temp Pulse Resp B/P (MAP) Pulse Ox O2 Delivery O2 Flow Rate FiO2 11/12/19 10:23 98.2 104 22 186/84 (118) 100 Room Air 98.2 EKG: EKG: [] Radiology/Procedures: Radiology/Procedures: [] Course & Med Decision Making: Course & Med Decision Making Pertinent Labs and Imaging studies reviewed. (See chart for details) [] Dragon Disclaimer: Dragon Disclaimer: This electronic medical record was generated, in whole or in part, using a voice recognition dictation system. Departure Departure Impression: Primary Impression: Chest pain Additional Impression: Alcohol withdrawal Disposition: ADMITTED INPATIENT Admitting Physician: HIMS Condition: STABLE Referrals: NO PCP (PCP) Justicifation of Admission Dx: Justifications for Admission: Justification of Admission Dx: Yes Angina: Symp at Rest MUMTAZ ROCKWELL MD Nov 12, 2019 11:43
--- NOTE | 2019-11-12 14:51 | PDOC2 ---
ANISH CHOPRA COLLAR STARCHER 11/12/19 1451: CARDIAC CONSULT DATE OF CONSULT Date of Consult DATE: 11/12/19 TIME: 14:27 REASON FOR CONSULT Reason for Consult: Chest pain REFERRING PHYSICIAN Referring Physician: Lida SOURCE Source: Chart review, Patient HISTORY OF PRESENT ILLNESS HISTORY OF PRESENT ILLNESS This is a 59 yo male admitted for complains of chest pain. He used to drink alcohol and sober for about 1 yr and his brother 2 months ago from colon CA and started drinking heavily again with beers and whiskey. He tried to finally make some changes and curbed his drinking significantly and started having symptoms this morning randing from nonradiating midchest pressure with some SOA and diaphoresis. She has gross arm/hand tremors and telling me that he is ready to quit ETOH again. No hx of any recent falls or injury and has not been having any exertional CP nor Sauer. No hx of CAD, VTE but has hx of AFIB with past ablation few years back and has not been having any palpitations and no longer on BB and eliquis but is on clonidine for HTN. 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 Despite his heavy drinking he is able to function in his job. PAST MEDICAL HISTORY Past Medical History Cardiovascular: AFIB (paroxysmal), HTN, Other (pericarditis with pericardial window), syncope Pulmonary: Pneumonia, Other (pneumothorax) CENTRAL NERVOUS SYSTEM: TIA GI: GERD, Peptic Ulcer disease Heme/Onc: Anemia NOS, Cancer (Hodgkin's lymphoma) Hepatobiliary: No pertinent hx Psych: Anxiety, alcoholism Musculoskeletal: Osteoarthritis Rheumatologic: No pertinent hx Infectious disease: No pertinent hx ENT: No pertinent hx Renal/: No pertinent hx Endocrine: Hypothyroidism Dermatology: No pertinent hx PAST SURGICAL HISTORY Past Surgical History splenectomy, partial pancreatectomy, AFIB ablation on 06/10/16 FAMILY HISTORY Family History noncontributory to CV SOCIAL HISTORY Smoke: No ALCOHOL: heavy Drugs: None Lives: with Family CURRENT MEDICATIONS CURRENT MEDICATIONS Current Medications Medications (Trade) Dose Ordered Sig/Fernanda Route PRN Reason Start Time Stop Time Status Last Admin Dose Admin Sodium Chloride 500 ml @ 500 mls/hr 1X ONCE IV 11/12/19 10:45 11/12/19 11:44 DC 11/12/19 11:04 Lorazepam (Ativan Inj) 1 mg PRN Q30MIN PRN IVP ANXIETY / AGITATION 11/12/19 11:15 11/12/19 12:01 Ondansetron HCl (Zofran) 4 mg 1X ONCE IVP 11/12/19 11:15 11/12/19 11:16 DC 11/12/19 11:21 ALLERGIES ALLERGIES: Coded Allergies: morphine (Verified Allergy, Severe, blisters, sob, 03/15/16) ROS Review of System 14 point ROS evaluated with pertinent positives noted per HPI PHYSICAL EXAM General: Alert, Oriented X3, Cooperative, No acute distress HEENT: Atraumatic, Mucous membr. moist/pink Lungs: Clear to auscultation, Normal air movement Heart: Regular rate (SR), Normal S1, Normal S2, Other (2/6 systolic murmur to LLS border) Abdomen: Soft, No tenderness Extremities: No cyanosis, No edema Skin: No breakdown, No significant lesion Neuro: Normal speech, Sensation intact, Other (gross arm/hand tremors) Psych/Mental Status: Mental status NL, Mood NL MUSCULOSKELETAL: Osteoarthritic changes both hands VITALS/I&O VITALS/I&O: Vital Signs Date Time Temp Pulse Resp B/P (MAP) Pulse Ox O2 Delivery O2 Flow Rate FiO2 11/12/19 13:09 71 117/67 (84) 99 Room Air 11/12/19 10:23 98.2 22 98.2 LABS Lab: Laboratory Tests Test 11/12/19 10:15 White Blood Count 7.2 x10^3/uL (4.0-11.0) Red Blood Count 4.21 x10^6/uL (4.30-5.70) L Hemoglobin 14.3 g/dL (13.0-17.5) Hematocrit 40.1 % (39.0-53.0) Mean Corpuscular Volume 95 fL (79-100) Mean Corpuscular Hemoglobin 34 pg (25-35) Mean Corpuscular Hemoglobin Concent 36 g/dL (31-37) Red Cell Distribution Width 13.6 % (11.5-14.5) Platelet Count 365 x10^3/uL (140-400) Neutrophils (%) (Auto) 63 % (31-73) Lymphocytes (%) (Auto) 24 % (24-48) Monocytes (%) (Auto) 11 % (0-9) H Eosinophils (%) (Auto) 1 % (0-3) Basophils (%) (Auto) 1 % (0-3) Neutrophils # (Auto) 4.5 x10^3/uL (1.8-7.7) Lymphocytes # (Auto) 1.7 x10^3/uL (1.0-4.8) Monocytes # (Auto) 0.8 x10^3/uL (0.0-1.1) Eosinophils # (Auto) 0.1 x10^3/uL (0.0-0.7) Basophils # (Auto) 0.1 x10^3/uL (0.0-0.2) Sodium Level 137 mmol/L (136-145) Potassium Level 4.1 mmol/L (3.5-5.1) Chloride Level 98 mmol/L (98-107) Carbon Dioxide Level 28 mmol/L (21-32) Anion Gap 11 (6-14) Blood Urea Nitrogen 15 mg/dL (8-26) Creatinine 1.0 mg/dL (0.7-1.3) Estimated GFR (Cockcroft-Gault) 76.7 BUN/Creatinine Ratio 15 (6-20) Glucose Level 142 mg/dL (70-99) H Calcium Level 8.8 mg/dL (8.5-10.1) Total Bilirubin 0.7 mg/dL (0.2-1.0) Aspartate Amino Transferase (AST) 41 U/L (15-37) H Alanine Aminotransferase (ALT) 39 U/L (16-63) Alkaline Phosphatase 163 U/L (46-116) H Troponin I Quantitative < 0.017 ng/mL (0.000-0.055) Total Protein 7.5 g/dL (6.4-8.2) Albumin 3.5 g/dL (3.4-5.0) Albumin/Globulin Ratio 0.9 (1.0-1.7) L Laboratory Tests 11/12/19 10:15 Laboratory Tests 11/12/19 10:15 ECHOCARDIOGRAM ECHOCARDIOGRAM <Conclusion> The left ventricle is normal size. Left ventricle systolic function is normal. The Ejection Fraction is 55-60%. The left atrium is mildly dilated. There is no thrombus noted in the left atrial appendage. There is no significant aortic valvular stenosis. Doppler and Color Flow revealed no significant aortic regurgitation. Doppler and Color Flow revealed moderate mitral regurgitation. Doppler and Color Flow revealed mild to moderate tricuspid regurgitation. DATE: 04/01/16 1339 STRESS TEST STRESS TEST Conclusion 1. No EKG evidence of ischemia but limited assessment due to atrial flutter with RVR. 2. Normal perfusion at stress/rest. 3. Low risk study. 4. EF preserved at > 70% DATE: 03/22/16 1352 ASSESSMENT/PLAN ASSESSMENT/PLAN 1. Atypical Chest pain: initial trop nml. suspect GI irritation from significant ETOH intake, doubt ACS 2. Alcohol abuse with DT symptoms: recently started drinking heavily in the last 2 months and stopped 2 days ago 3. Anxiety/grief: brother 2 months ago 4. HTN urgency 5. PAFIB: past ablation. SR, no longer taking BB nor NOAC since ablation 6. Hypothyroidism: subtherapeutic with TSH at 6 7. Hx of open pericardial window 8. HX of PUD and hodgkins lymphoma Recommendations 1. CIWA protocol and benzos per PCP 2. Trend troponin check lipids. check EKG, Mg, TSH, TTE 3. Start on PPI, GI cocktail x1 4. Counselled in regards to ETOH misuse and anxiety/grief and is planning to see a counselor. 5. Monitor rhythm, restart home clonidine. Hydralazine IV PRN DEBRA RAMIRES MD 11/12/19 1730: CARDIAC CONSULT ASSESSMENT/PLAN ASSESSMENT/PLAN Pt. seen and examined. Agree with above HAND TOUCH UP PAINTER note. Supportive care. Thanks. No need for TTE as inpt if able to be discharged over the weekend. If remains in house, can consider. Thanks ANISH CHOPRA APRN Nov 12, 2019 14:51 DEBRA RAMIRES MD Nov 12, 2019 17:30
--- NOTE | 2019-11-12 14:58 | PDOC1 ---
History and Physical Date of Admission: Date of Admission DATE: 11/12/19 TIME: 14:53 Chief Complaint: Problems: (1) SVT (supraventricular tachycardia) (2) Impacted esophageal foreign body (3) Altered mental status (4) Foreign body (FB) in soft tissue (5) Lower extremity edema (6) Elevated brain natriuretic peptide (BNP) level (7) Afib (8) Atrial flutter (9) Atrial fibrillation (10) Dyspnea (11) Palpitations (12) Hypomagnesemia (13) Atrial fibrillation with RVR (14) Syncope (15) Elevated troponin (16) Sinus arrhythmia (17) Food impaction of esophagus (18) Alcohol withdrawal (19) Chest pain Chief Complain: Chest discomfort History of Present Illness: HPI: This is a middle-aged male with history of Hodgkin's lymphoma in the past he has had surgery radiation and chemotherapy. The surgery was required due to inflammation of his pericardium due to the radiation Today presents to the ER complain of chest pain this is been occurring for a day or 2 It is worse with moving better with sitting still He increased his home meds with that and work He states he has been sober for a year but then started drinking again and perhaps that might be causing his pain Rates his symptoms as 7 out of 10 I discussed the case with ER physician were going to meet the patient in consult cardiology Past Medical/Surgical History: PMH/PSH: Past Medical History: A-Fib, Anxiety, Arrhythmia, Cancer, Hypertension, Other Additional Past Medical Histor: SPONT PNEUMO, HODGKINS X2, PERICARDIAL STRIPPING, SVT Past Surgical History: Appendectomy, Splenectomy, Other Additional Past Surgical Histo: TAIL OF PANCREAS REMOVED, PERICARDIAL STRIPPING, Smoking Status: Never Smoker Alcohol Use: Heavy Allergies: Allergies: Coded Allergies: morphine (Verified Allergy, Severe, blisters, sob, 03/15/16) Family History: Family History: COPD and alcohol issues in the family Social History: Social History: He drinks a sixpack and several shots a day Current Medications: Current Medications Current Medications Sodium Chloride 500 ml @ 500 mls/hr 1X ONCE IV Last administered on 11/12/19at 11:04; Start 11/12/19 at 10:45; Stop 11/12/19 at 11:44; Status DC Lorazepam (Ativan Inj) 1 mg PRN Q30MIN PRN IVP ANXIETY / AGITATION Last administered on 11/12/19at 12:01; Start 11/12/19 at 11:15 Ondansetron HCl (Zofran) 4 mg 1X ONCE IVP Last administered on 11/12/19at 11:21; Start 11/12/19 at 11:15; Stop 11/12/19 at 11:16; Status DC Lorazepam (Ativan Inj) 0.5 mg PRN Q1HR PRN IV For CIWA 8-14; Start 11/12/19 at 14:00 Pantoprazole Sodium (Protonix) 40 mg DAILY PO ; Start 11/12/19 at 09:00 Active Scripts Active Levaquin (Levofloxacin) 750 Mg Tablet 1 Tab PO DAILY Oxycodone Hcl Immed.release (Oxycodone Hcl) 5 Mg Tablet 5 Mg PO PRN Q6HRS PRN Metoprolol Tartrate 25 Mg Tablet 25 Mg PO BID Flecainide Acetate 50 Mg Tablet 100 Mg PO Q12HR Synthroid (Levothyroxine Sodium) 125 Mcg Tablet 125 Mcg PO DAILY07 Atorvastatin Calcium 10 Mg Tablet 10 Mg PO QHS 30 Days Aspirin Ec (Aspirin) 81 Mg Tablet.dr 81 Mg PO DAILYWBKFT Fish Oil 1,000 Mg Capsule ([place]-3 Fatty Acids/Fish Oil) 1,000 Mg Capsule 2,000 Mg PO BID 30 Days Reported Lorazepam 1 Mg Tablet 1 Mg PO TID PRN PRN Xanax (Alprazolam) 1 Mg Tablet 1 Tab PO PRN TID PRN Eliquis (Apixaban) 5 Mg Tablet 5 Mg PO Maalox Maximum Strength Susp (Mag Hydrox/Al Hydrox/Simeth) 355 Ml Oral.susp 355 Ml PO ROS: Review of Systems Review of System REVIEW OF SYSTEMS: GENERAL: Denies weakness SKIN: No bruising, hair changes or rashes. EYES: No blurred, double or loss of vision. NOSE AND THROAT: No history of nosebleeds, hoarseness or sore throat. HEART: Complains of chest pain LUNGS: Denies cough, hemoptysis, wheezing or shortness of breath. GASTROINTESTINAL: Denies changes in appetite, nausea, vomiting, diarrhea or constipation. GENITOURINARY: No history of frequency, urgency, hesitancy or nocturia. NEUROLOGIC: Denies history of numbness, tingling, or tremor. PSYCHIATRIC: No history of panic, anxiety or depression. ENDOCRINE: No history of heat or cold intolerance, polyuria or polydipsia. EXTREMITIES: Denies joint pain, pain on walking or stiffness. Physical Exam: Vital Signs: Vital Signs Date Time Temp Pulse Resp B/P (MAP) Pulse Ox O2 Delivery O2 Flow Rate FiO2 11/12/19 13:09 71 117/67 (84) 99 Room Air 11/12/19 10:23 98.2 22 98.2 Physcial Exam: GEN: No apparent distress. Alert and oriented HEENT: Normal cephalic, atraumatic, external auditory canals are patent EYES: Extraocular muscles are intact, pupil are equally round and reactive to light and accommodation MUSCULOSKELETAL: Well developed , well nourished, good range of motion ENDOCRINE: No thyromegaly was palpated LYMPHATICS: No cervical chain or axillary nodes were noted HEMATOPOIETIC: No bruising NECK: Supple, no JVD, no thyromegaly was noted LUNGS: Clear to auscultation in all lung silva without rhonchi or wheezing HEART: RRR, S!, S2 present. Peripheral pulses intact, no obvious murmurs noted ABDOMEN: Decreased bowel sounds minimal tenderness EXTREMITIES: Without clubbing, cyanosis, or edema. Pedal pulses intact. Negative Homans sign NEUROLOGIC: Normal speech and tone. A&O x 3, moves all extremities, no obvious focal deficits PSYCHIATRIC: Normal affect, normal mood. Stable SKIN: The chest wall has a large old incision that healed well from his previous pericardial surgery VASCULAR: Good capillary refill, neurovascular bundle appears to be intact Labs: Labs: Laboratory Tests Test 11/12/19 10:15 White Blood Count 7.2 x10^3/uL (4.0-11.0) Red Blood Count 4.21 x10^6/uL (4.30-5.70) Hemoglobin 14.3 g/dL (13.0-17.5) Hematocrit 40.1 % (39.0-53.0) Mean Corpuscular Volume 95 fL (79-100) Mean Corpuscular Hemoglobin 34 pg (25-35) Mean Corpuscular Hemoglobin Concent 36 g/dL (31-37) Red Cell Distribution Width 13.6 % (11.5-14.5) Platelet Count 365 x10^3/uL (140-400) Neutrophils (%) (Auto) 63 % (31-73) Lymphocytes (%) (Auto) 24 % (24-48) Monocytes (%) (Auto) 11 % (0-9) Eosinophils (%) (Auto) 1 % (0-3) Basophils (%) (Auto) 1 % (0-3) Neutrophils # (Auto) 4.5 x10^3/uL (1.8-7.7) Lymphocytes # (Auto) 1.7 x10^3/uL (1.0-4.8) Monocytes # (Auto) 0.8 x10^3/uL (0.0-1.1) Eosinophils # (Auto) 0.1 x10^3/uL (0.0-0.7) Basophils # (Auto) 0.1 x10^3/uL (0.0-0.2) Sodium Level 137 mmol/L (136-145) Potassium Level 4.1 mmol/L (3.5-5.1) Chloride Level 98 mmol/L (98-107) Carbon Dioxide Level 28 mmol/L (21-32) Anion Gap 11 (6-14) Blood Urea Nitrogen 15 mg/dL (8-26) Creatinine 1.0 mg/dL (0.7-1.3) Estimated GFR (Cockcroft-Gault) 76.7 BUN/Creatinine Ratio 15 (6-20) Glucose Level 142 mg/dL (70-99) Calcium Level 8.8 mg/dL (8.5-10.1) Total Bilirubin 0.7 mg/dL (0.2-1.0) Aspartate Amino Transf (AST/SGOT) 41 U/L (15-37) Alanine Aminotransferase (ALT/SGPT) 39 U/L (16-63) Alkaline Phosphatase 163 U/L (46-116) Troponin I Quantitative < 0.017 ng/mL (0.000-0.055) Total Protein 7.5 g/dL (6.4-8.2) Albumin 3.5 g/dL (3.4-5.0) Albumin/Globulin Ratio 0.9 (1.0-1.7) Laboratory Tests Test 11/12/19 10:15 White Blood Count 7.2 x10^3/uL (4.0-11.0) Red Blood Count 4.21 x10^6/uL (4.30-5.70) Hemoglobin 14.3 g/dL (13.0-17.5) Hematocrit 40.1 % (39.0-53.0) Mean Corpuscular Volume 95 fL (79-100) Mean Corpuscular Hemoglobin 34 pg (25-35) Mean Corpuscular Hemoglobin Concent 36 g/dL (31-37) Red Cell Distribution Width 13.6 % (11.5-14.5) Platelet Count 365 x10^3/uL (140-400) Neutrophils (%) (Auto) 63 % (31-73) Lymphocytes (%) (Auto) 24 % (24-48) Monocytes (%) (Auto) 11 % (0-9) Eosinophils (%) (Auto) 1 % (0-3) Basophils (%) (Auto) 1 % (0-3) Neutrophils # (Auto) 4.5 x10^3/uL (1.8-7.7) Lymphocytes # (Auto) 1.7 x10^3/uL (1.0-4.8) Monocytes # (Auto) 0.8 x10^3/uL (0.0-1.1) Eosinophils # (Auto) 0.1 x10^3/uL (0.0-0.7) Basophils # (Auto) 0.1 x10^3/uL (0.0-0.2) Sodium Level 137 mmol/L (136-145) Potassium Level 4.1 mmol/L (3.5-5.1) Chloride Level 98 mmol/L (98-107) Carbon Dioxide Level 28 mmol/L (21-32) Anion Gap 11 (6-14) Blood Urea Nitrogen 15 mg/dL (8-26) Creatinine 1.0 mg/dL (0.7-1.3) Estimated GFR (Cockcroft-Gault) 76.7 BUN/Creatinine Ratio 15 (6-20) Glucose Level 142 mg/dL (70-99) Calcium Level 8.8 mg/dL (8.5-10.1) Total Bilirubin 0.7 mg/dL (0.2-1.0) Aspartate Amino Transf (AST/SGOT) 41 U/L (15-37) Alanine Aminotransferase (ALT/SGPT) 39 U/L (16-63) Alkaline Phosphatase 163 U/L (46-116) Troponin I Quantitative < 0.017 ng/mL (0.000-0.055) Total Protein 7.5 g/dL (6.4-8.2) Albumin 3.5 g/dL (3.4-5.0) Albumin/Globulin Ratio 0.9 (1.0-1.7) Images: Images No confluent infiltrates were noted Assessment/Plan Assessment/Plan Chest pain and [place] male who has a history of Hodgkin's disease and who has alcohol issues Plan Serial enzymes Serial EKGs Cardiac monitoring Home meds DVT prophylaxis Consult cardiology Full code Alcohol withdrawal protocol Long-term prognosis guarded if he does not quit drinking Justicifation of Admission Dx: Justifications for Admission: Justification of Admission Dx: Yes Angina: [facility] at Rest JACK BRUNNER III DO Nov 12, 2019 14:58
[2019-11-12 15:32] LABS: PROTHROMBIN TIME PATIENT 12.4 SEC (11.7-14.0)
[2019-11-12 15:42] LABS: MAGNESIUM 1.8 mg/dL (1.8-2.4)
[2019-11-12 16:10] VITALS: BP 178/92
[2019-11-12 16:10] LABS: BILIRUBIN,URINE NEGATIVE (NEG); CLARITY,URINE CLEAR; COLOR,URINE YELLOW; NITRITE,URINE NEGATIVE (NEG); PH,URINE 7.5 (<5.0-8.0); PROTEIN,URINE NEGATIVE (NEG-TRACE); UROBILINOGEN,URINE 0.2 mg/dL (0.2 mg/dL)
[2019-11-12 16:15] LABS: BACTERIA,URINE 0 /HPF (0-FEW); HYALINE CASTS, URINE FEW /HPF; RBC,URINE 0 /HPF (0-2)
[2019-11-12] MEDS ORDERED: LIDO:MAALOX 1:1 20 ML SINGLE DOSE. SWSW ONE (16:30)
[2019-11-12] MEDS ORDERED: hydrALAZINE 20 MG/ML VIAL. IVP PRN (16:30)
[2019-11-12 16:46] LABS: BARBITURATES NEG (NEG); BENZODIAZEPINES NEG (NEG); CANNABINOIDS NEG (NEG); COCAINE NEG (NEG); METHADONE NEG (NEG); OPIATES NEG (NEG); PHENCYCLIDINE NEG (NEG)
[2019-11-12 16:52] LABS: AMPHETAMINE/METHAMPHETAMINE NEG (NEG)
[2019-11-12] MEDS: cloNIDine HCL 0.2 MG TABLET PO SCH ×2 (16:56→20:59)
[2019-11-12] MEDS: PANTOPRAZOLE 40 MG TABLET.DR. PO SCH (16:56)
[2019-11-12] MEDS ORDERED: MULTIVIT INFUSN,ADULT 4,VIT K 10 ML, THIAMINE INJ 100 MG, FOLIC ACID INJ 1 MG in IV NOR... IV SCH (17:00)
[2019-11-12 19:00] VITALS: BP 119/68
[2019-11-12] MEDS ORDERED: cloNIDine HCL 0.2 MG TABLET PO SCH (22:00)
[2019-11-12 23:00] VITALS: BP 126/76
[2019-11-12] MEDS ORDERED: fentaNYL PF VIAL 100 MCG/2 ML VIAL IVP PRN (23:00)
[2019-11-13 02:50] VITALS: BP 128/65
[2019-11-13 04:52] LABS: BASO # 0.1 x10^3/uL (0.0-0.2); BASO % 1 % (0-3); EOS # 0.2 x10^3/uL (0.0-0.7); EOS % 4 % (0-3); HEMATOCRIT 35.2 % (39.0-53.0); HEMOGLOBIN 12.2 g/dL (13.0-17.5); LYMPH % 31 % (24-48); MEAN CORPUSCULAR HEMOGLOBIN 33 pg (25-35); MEAN CORPUSCULAR HGB CONC 35 g/dL (31-37); MEAN CORPUSCULAR VOLUME 96 fL (79-100); MONO # 0.6 x10^3/uL (0.0-1.1); MONO % 10 % (0-9); NEUT # 3.5 x10^3/uL (1.8-7.7); NEUT % 55 % (31-73); PLATELET COUNT 290 x10^3/uL (140-400); RED BLOOD COUNT 3.68 x10^6/uL (4.30-5.70); RED CELL DISTRIBUTION WIDTH 13.6 % (11.5-14.5); WHITE BLOOD COUNT 6.4 x10^3/uL (4.0-11.0)
[2019-11-13 05:28] LABS: CALCIUM 7.7 mg/dL (8.5-10.1); CREATININE 0.9 mg/dL (0.7-1.3); GFR 86.7
[2019-11-13 05:46] LABS: CHOLESTEROL/HDL RATIO 5.6
[2019-11-13] MEDS: cloNIDine HCL 0.2 MG TABLET PO SCH ×2 (06:44→15:57)
[2019-11-13 07:18] VITALS: BP 163/80
[2019-11-13] MEDS: PANTOPRAZOLE 40 MG TABLET.DR. PO SCH (08:53)
[2019-11-13 10:26] VITALS: BP 124/61
[2019-11-13 14:17] VITALS: BP 125/66
--- NOTE | 2019-11-13 15:40 | PDOC ---
PROGRESS NOTES Chief Complaint Chief Complaint Atypical Chest pain: initial trop nml. suspect GI irritation from significant ETOH intake, doubt ACS Alcohol abuse with DT symptoms: recently started drinking heavily in the last 2 months and stopped 2 days ago Anxiety/grief: brother 2 months ago HTN urgency PAFIB: past ablation. SR, no longer taking BB nor NOAC since ablation Hypothyroidism: subtherapeutic with TSH at 6 Hx of open pericardial window HX of PUD and hodgkins lymphoma History of Present Illness History of Present Illness Mr Blair is a 59 yo M admitted for complains of chest pain. He used to drink alcohol and sober for about 1 yr and his brother 2 months ago from colon CA and started drinking heavily again with beers and whiskey. He tried to finally make some changes and curbed his drinking significantly and started having symptoms this morning randing from nonradiating midchest pressure with some SOA and diaphoresis. She has gross arm/hand tremors and telling me that he is ready to quit ETOH again. No hx of any recent falls or injury and has not been having any exertional CP nor Sauer. No hx of CAD, VTE but has hx of AFIB with past ablation few years back and has not been having any palpitations and no longer on BB and eliquis but is on clonidine for HTN. 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 Despite his heavy drinking he is able to function in his job. Negative work-up for cardiac etiology. He feels improved today no further chest pain he thinks this is anxiety probably alcohol related. Plan: Discharge with clonidine, a few days of Ativan, pantoprazole, atorvastatin. Vitals Vitals Vital Signs Date Time Temp Pulse Resp B/P (MAP) Pulse Ox O2 Delivery O2 Flow Rate FiO2 11/13/19 14:17 98.0 75 20 125/66 (85) 94 Room Air 98.0 Physical Exam General: Alert, Oriented X3, Cooperative, No acute distress Heart: Regular rate (SR), Normal S1, Normal S2, Other (2/6 systolic murmur to LLS border) Lungs: Clear Abdomen: Soft, No tenderness Extremities: No cyanosis, No edema Skin: No breakdown, No significant lesion Labs LABS Laboratory Tests Test 11/12/19 16:00 11/12/19 18:15 11/13/19 04:00 Urine Collection Type Unknown Urine Color Yellow Urine Clarity Clear Urine pH 7.5 (<5.0-8.0) Urine Specific [place] 1.015 (1.000-1.030) Urine Protein Negative mg/dL (NEG-TRACE) Urine Glucose (UA) Negative mg/dL (NEG) Urine Ketones (Stick) Negative mg/dL (NEG) Urine Blood Negative (NEG) Urine Nitrite Negative (NEG) Urine Bilirubin Negative (NEG) Urine Urobilinogen Dipstick 0.2 mg/dL (0.2 mg/dL) Urine Leukocyte Esterase Negative (NEG) Urine RBC 0 /HPF (0-2) Urine WBC 1-4 /HPF (0-4) Urine Bacteria 0 /HPF (0-FEW) Urine Hyaline Casts Few /HPF Troponin I Quantitative < 0.017 ng/mL (0.000-0.055) < 0.017 ng/mL (0.000-0.055) Urine Opiates Screen Neg (NEG) Urine Methadone Screen Neg (NEG) Urine Barbiturates Neg (NEG) Urine Phencyclidine Screen Neg (NEG) Urine Amphetamine/Methamphetamine Neg (NEG) Urine Benzodiazepines Screen Neg (NEG) Urine Cocaine Screen Neg (NEG) Urine Cannabinoids Screen Neg (NEG) Urine Ethyl Alcohol Neg (NEG) White Blood Count 6.4 x10^3/uL (4.0-11.0) Red Blood Count 3.68 x10^6/uL (4.30-5.70) Hemoglobin 12.2 g/dL (13.0-17.5) Hematocrit 35.2 % (39.0-53.0) Mean Corpuscular Volume 96 fL (79-100) Mean Corpuscular Hemoglobin 33 pg (25-35) Mean Corpuscular Hemoglobin Concent 35 g/dL (31-37) Red Cell Distribution Width 13.6 % (11.5-14.5) Platelet Count 290 x10^3/uL (140-400) Neutrophils (%) (Auto) 55 % (31-73) Lymphocytes (%) (Auto) 31 % (24-48) Monocytes (%) (Auto) 10 % (0-9) Eosinophils (%) (Auto) 4 % (0-3) Basophils (%) (Auto) 1 % (0-3) Neutrophils # (Auto) 3.5 x10^3/uL (1.8-7.7) Lymphocytes # (Auto) 2.0 x10^3/uL (1.0-4.8) Monocytes # (Auto) 0.6 x10^3/uL (0.0-1.1) Eosinophils # (Auto) 0.2 x10^3/uL (0.0-0.7) Basophils # (Auto) 0.1 x10^3/uL (0.0-0.2) Sodium Level 135 mmol/L (136-145) Potassium Level 4.0 mmol/L (3.5-5.1) Chloride Level 102 mmol/L (98-107) Carbon Dioxide Level 26 mmol/L (21-32) Anion Gap 7 (6-14) Blood Urea Nitrogen 11 mg/dL (8-26) Creatinine 0.9 mg/dL (0.7-1.3) Estimated GFR (Cockcroft-Gault) 86.7 Glucose Level 141 mg/dL (70-99) Calcium Level 7.7 mg/dL (8.5-10.1) Triglycerides Level 349 mg/dL (0-150) Cholesterol Level 225 mg/dL (0-200) LDL Cholesterol, Calculated 115 mg/dL (0-100) VLDL Cholesterol, Calculated 70 mg/dL (0-40) Non-HDL Cholesterol Calculated 185 mg/dL (0-129) HDL Cholesterol 40 mg/dL (40-60) Cholesterol/HDL Ratio 5.6 Assessment and Plan Assessmemt and Plan Problems Medical Problems: (1) Alcohol withdrawal Status: Acute (2) Chest pain Status: Acute Comment Review of Relevant I have reviewed the following items carlos (where applicable) has been applied. Labs Laboratory Tests Test 11/12/19 10:15 11/12/19 16:00 11/12/19 18:15 11/13/19 04:00 White Blood Count 7.2 x10^3/uL (4.0-11.0) 6.4 x10^3/uL (4.0-11.0) Red Blood Count 4.21 x10^6/uL (4.30-5.70) 3.68 x10^6/uL (4.30-5.70) Hemoglobin 14.3 g/dL (13.0-17.5) 12.2 g/dL (13.0-17.5) Hematocrit 40.1 % (39.0-53.0) 35.2 % (39.0-53.0) Mean Corpuscular Volume 95 fL (79-100) 96 fL (79-100) Mean Corpuscular Hemoglobin 34 pg (25-35) 33 pg (25-35) Mean Corpuscular Hemoglobin Concent 36 g/dL (31-37) 35 g/dL (31-37) Red Cell Distribution Width 13.6 % (11.5-14.5) 13.6 % (11.5-14.5) Platelet Count 365 x10^3/uL (140-400) 290 x10^3/uL (140-400) Neutrophils (%) (Auto) 63 % (31-73) 55 % (31-73) Lymphocytes (%) (Auto) 24 % (24-48) 31 % (24-48) Monocytes (%) (Auto) 11 % (0-9) 10 % (0-9) Eosinophils (%) (Auto) 1 % (0-3) 4 % (0-3) Basophils (%) (Auto) 1 % (0-3) 1 % (0-3) Neutrophils # (Auto) 4.5 x10^3/uL (1.8-7.7) 3.5 x10^3/uL (1.8-7.7) Lymphocytes # (Auto) 1.7 x10^3/uL (1.0-4.8) 2.0 x10^3/uL (1.0-4.8) Monocytes # (Auto) 0.8 x10^3/uL (0.0-1.1) 0.6 x10^3/uL (0.0-1.1) Eosinophils # (Auto) 0.1 x10^3/uL (0.0-0.7) 0.2 x10^3/uL (0.0-0.7) Basophils # (Auto) 0.1 x10^3/uL (0.0-0.2) 0.1 x10^3/uL (0.0-0.2) Prothrombin Time 12.4 SEC (11.7-14.0) Prothromb Time International Ratio 1.0 (0.8-1.1) Sodium Level 137 mmol/L (136-145) 135 mmol/L (136-145) Potassium Level 4.1 mmol/L (3.5-5.1) 4.0 mmol/L (3.5-5.1) Chloride Level 98 mmol/L (98-107) 102 mmol/L (98-107) Carbon Dioxide Level 28 mmol/L (21-32) 26 mmol/L (21-32) Anion Gap 11 (6-14) 7 (6-14) Blood Urea Nitrogen 15 mg/dL (8-26) 11 mg/dL (8-26) Creatinine 1.0 mg/dL (0.7-1.3) 0.9 mg/dL (0.7-1.3) Estimated GFR (Cockcroft-Gault) 76.7 86.7 BUN/Creatinine Ratio 15 (6-20) Glucose Level 142 mg/dL (70-99) 141 mg/dL (70-99) Calcium Level 8.8 mg/dL (8.5-10.1) 7.7 mg/dL (8.5-10.1) Magnesium Level 1.8 mg/dL (1.8-2.4) Total Bilirubin 0.7 mg/dL (0.2-1.0) Aspartate Amino Transf (AST/SGOT) 41 U/L (15-37) Alanine Aminotransferase (ALT/SGPT) 39 U/L (16-63) Alkaline Phosphatase 163 U/L (46-116) Creatine Kinase 133 U/L (39-308) Troponin I Quantitative < 0.017 ng/mL (0.000-0.055) < 0.017 ng/mL (0.000-0.055) < 0.017 ng/mL (0.000-0.055) Total Protein 7.5 g/dL (6.4-8.2) Albumin 3.5 g/dL (3.4-5.0) Albumin/Globulin Ratio 0.9 (1.0-1.7) Thyroid Stimulating Hormone (TSH) 6.128 uIU/mL (0.358-3.74) Urine Collection Type Unknown Urine Color Yellow Urine Clarity Clear Urine pH 7.5 (<5.0-8.0) Urine Specific [place] 1.015 (1.000-1.030) Urine Protein Negative mg/dL (NEG-TRACE) Urine Glucose (UA) Negative mg/dL (NEG) Urine Ketones (Stick) Negative mg/dL (NEG) Urine Blood Negative (NEG) Urine Nitrite Negative (NEG) Urine Bilirubin Negative (NEG) Urine Urobilinogen Dipstick 0.2 mg/dL (0.2 mg/dL) Urine Leukocyte Esterase Negative (NEG) Urine RBC 0 /HPF (0-2) Urine WBC 1-4 /HPF (0-4) Urine Bacteria 0 /HPF (0-FEW) Urine Hyaline Casts Few /HPF Urine Opiates Screen Neg (NEG) Urine Methadone Screen Neg (NEG) Urine Barbiturates Neg (NEG) Urine Phencyclidine Screen Neg (NEG) Urine Amphetamine/Methamphetamine Neg (NEG) Urine Benzodiazepines Screen Neg (NEG) Urine Cocaine Screen Neg (NEG) Urine Cannabinoids Screen Neg (NEG) Urine Ethyl Alcohol Neg (NEG) Triglycerides Level 349 mg/dL (0-150) Cholesterol Level 225 mg/dL (0-200) LDL Cholesterol, Calculated 115 mg/dL (0-100) VLDL Cholesterol, Calculated 70 mg/dL (0-40) Non-HDL Cholesterol Calculated 185 mg/dL (0-129) HDL Cholesterol 40 mg/dL (40-60) Cholesterol/HDL Ratio 5.6 Laboratory Tests Test 11/12/19 16:00 11/12/19 18:15 11/13/19 04:00 Urine Collection Type Unknown Urine Color Yellow Urine Clarity Clear Urine pH 7.5 (<5.0-8.0) Urine Specific [place] 1.015 (1.000-1.030) Urine Protein Negative mg/dL (NEG-TRACE) Urine Glucose (UA) Negative mg/dL (NEG) Urine Ketones (Stick) Negative mg/dL (NEG) Urine Blood Negative (NEG) Urine Nitrite Negative (NEG) Urine Bilirubin Negative (NEG) Urine Urobilinogen Dipstick 0.2 mg/dL (0.2 mg/dL) Urine Leukocyte Esterase Negative (NEG) Urine RBC 0 /HPF (0-2) Urine WBC 1-4 /HPF (0-4) Urine Bacteria 0 /HPF (0-FEW) Urine Hyaline Casts Few /HPF Troponin I Quantitative < 0.017 ng/mL (0.000-0.055) < 0.017 ng/mL (0.000-0.055) Urine Opiates Screen Neg (NEG) Urine Methadone Screen Neg (NEG) Urine Barbiturates Neg (NEG) Urine Phencyclidine Screen Neg (NEG) Urine Amphetamine/Methamphetamine Neg (NEG) Urine Benzodiazepines Screen Neg (NEG) Urine Cocaine Screen Neg (NEG) Urine Cannabinoids Screen Neg (NEG) Urine Ethyl Alcohol Neg (NEG) White Blood Count 6.4 x10^3/uL (4.0-11.0) Red Blood Count 3.68 x10^6/uL (4.30-5.70) Hemoglobin 12.2 g/dL (13.0-17.5) Hematocrit 35.2 % (39.0-53.0) Mean Corpuscular Volume 96 fL (79-100) Mean Corpuscular Hemoglobin 33 pg (25-35) Mean Corpuscular Hemoglobin Concent 35 g/dL (31-37) Red Cell Distribution Width 13.6 % (11.5-14.5) Platelet Count 290 x10^3/uL (140-400) Neutrophils (%) (Auto) 55 % (31-73) Lymphocytes (%) (Auto) 31 % (24-48) Monocytes (%) (Auto) 10 % (0-9) Eosinophils (%) (Auto) 4 % (0-3) Basophils (%) (Auto) 1 % (0-3) Neutrophils # (Auto) 3.5 x10^3/uL (1.8-7.7) Lymphocytes # (Auto) 2.0 x10^3/uL (1.0-4.8) Monocytes # (Auto) 0.6 x10^3/uL (0.0-1.1) Eosinophils # (Auto) 0.2 x10^3/uL (0.0-0.7) Basophils # (Auto) 0.1 x10^3/uL (0.0-0.2) Sodium Level 135 mmol/L (136-145) Potassium Level 4.0 mmol/L (3.5-5.1) Chloride Level 102 mmol/L (98-107) Carbon Dioxide Level 26 mmol/L (21-32) Anion Gap 7 (6-14) Blood Urea Nitrogen 11 mg/dL (8-26) Creatinine 0.9 mg/dL (0.7-1.3) Estimated GFR (Cockcroft-Gault) 86.7 Glucose Level 141 mg/dL (70-99) Calcium Level 7.7 mg/dL (8.5-10.1) Triglycerides Level 349 mg/dL (0-150) Cholesterol Level 225 mg/dL (0-200) LDL Cholesterol, Calculated 115 mg/dL (0-100) VLDL Cholesterol, Calculated 70 mg/dL (0-40) Non-HDL Cholesterol Calculated 185 mg/dL (0-129) HDL Cholesterol 40 mg/dL (40-60) Cholesterol/HDL Ratio 5.6 Medications Current Medications Sodium Chloride 500 ml @ 500 mls/hr 1X ONCE IV Last administered on 11/12/19at 11:04; Start 11/12/19 at 10:45; Stop 11/12/19 at 11:44; Status DC Lorazepam (Ativan Inj) 1 mg PRN Q30MIN PRN IVP ANXIETY / AGITATION Last administered on 11/12/19at 12:01; Start 11/12/19 at 11:15 Ondansetron HCl (Zofran) 4 mg 1X ONCE IVP Last administered on 11/12/19at 11:21; Start 11/12/19 at 11:15; Stop 11/12/19 at 11:16; Status DC Lorazepam (Ativan Inj) 0.5 mg PRN Q1HR PRN IV For CIWA 8-14; Start 11/12/19 at 14:00; Status Cancel Pantoprazole Sodium (Protonix) 40 mg DAILY PO Last administered on 11/13/19at 08:53; Start 11/12/19 at 09:00 Multivitamins 10 ml/Thiamine HCl 100 mg/Folic Acid 1 mg/Sodium Chloride 1,011.2 ml @ 100 mls/ hr Q24H IV Last administered on 11/12/19at 16:55; Start 11/12/19 at 17:00; Stop 11/17/19 at 03:07 Multivitamins (Thera M Plus) 1 tab DAILY PO ; Start 11/17/19 at 09:00 Folic Acid (Folic Acid) 1 mg DAILY PO ; Start 11/17/19 at 09:00 Thiamine Mononitrate (Vitamin B-1) 100 mg DAILY PO ; Start 11/17/19 at 09:00 Lorazepam (Ativan Inj) 2 mg PRN Q1HR PRN IV For CIWA 8-14 Last administered on 11/13/19at 08:54; Start 11/12/19 at 15:45 Lorazepam (Ativan Inj) 4 mg PRN Q1HR PRN IV For CIWA 15 or greater; Start 11/12/19 at 15:45 Multi-Ingredient Mouthwash/Gargle (Gi Cocktail) 20 ml 1X ONCE SWSW Last administered on 11/12/19at 16:56; Start 11/12/19 at 16:30; Stop 11/12/19 at 16:31; Status DC Clonidine HCl (Catapres) 0.2 mg Q8HRS PO ; Start 11/12/19 at 22:00; Stop 11/12/19 at 16:30; Status DC Hydralazine HCl (Apresoline Inj) 10 mg PRN Q4HRS PRN IVP ELEVATED BP, SEE COMMENTS; Start 11/12/19 at 16:30 Clonidine HCl (Catapres) 0.2 mg Q8HRS PO Last administered on 11/13/19at 06:44; Start 11/12/19 at 16:30 Fentanyl Citrate (Fentanyl 2ml Vial) 50 mcg PRN Q4HRS PRN IVP PAIN Last administered on 11/12/19at 23:18; Start 11/12/19 at 23:00 Active Scripts Active Levaquin (Levofloxacin) 750 Mg Tablet 1 Tab PO DAILY Oxycodone Hcl Immed.release (Oxycodone Hcl) 5 Mg Tablet 5 Mg PO PRN Q6HRS PRN Synthroid (Levothyroxine Sodium) 125 Mcg Tablet 125 Mcg PO DAILY07 Atorvastatin Calcium 10 Mg Tablet 10 Mg PO QHS 30 Days Aspirin Ec (Aspirin) 81 Mg Tablet.dr 81 Mg PO DAILYWBKFT Fish Oil 1,000 Mg Capsule ([place]-3 Fatty Acids/Fish Oil) 1,000 Mg Capsule 2,000 Mg PO BID 30 Days Reported Lorazepam 1 Mg Tablet 1 Mg PO TID PRN PRN Xanax (Alprazolam) 1 Mg Tablet 1 Tab PO PRN TID PRN Maalox Maximum Strength Susp (Mag Hydrox/Al Hydrox/Simeth) 355 Ml Oral.susp 355 Ml PO Vitals/I & O Vital Sign - Last 24 Hours 11/12/19 11/12/19 11/12/19 11/12/19 16:00 16:10 16:56 19:00 Temp 97.5 97.7 97.5 97.7 Pulse 90 85 81 Resp 18 18 B/P (MAP) 178/92 (120) 119/68 (85) Pulse Ox 98 98 O2 Delivery Room Air Room Air Room Air 11/12/19 11/12/19 11/12/19 11/12/19 20:00 20:59 23:00 23:18 Temp 97.7 97.7 Pulse 70 74 Resp 19 B/P (MAP) 119/68 126/76 (93) Pulse Ox 96 O2 Delivery Room Air Room Air Room Air 11/13/19 11/13/19 11/13/19 11/13/19 02:50 06:44 07:18 08:00 Temp 97.8 97.8 97.8 97.8 Pulse 77 83 76 Resp 20 20 B/P (MAP) 128/65 (86) 128/65 163/80 (107) Pulse Ox 99 95 O2 Delivery Room Air Room Air Room Air 11/13/19 11/13/19 10:26 14:17 Temp 98.0 98.0 98.0 98.0 Pulse 69 75 Resp 20 20 B/P (MAP) 124/61 (82) 125/66 (85) Pulse Ox 95 94 O2 Delivery Room Air Room Air Intake and Output 11/12/19 11/12/19 11/13/19 15:00 23:00 07:00 Intake Total 500 ml 50 ml 900 ml Output Total 500 ml 700 ml Balance 500 ml -450 ml 200 ml Images There are no confluent infiltrates. There is no pneumothorax or pleural effusion. The heart is not enlarged. Calcified lymph nodes likely reflect old granulomatous disease. Median sternotomy changes are noted. There are atherosclerotic calcifications of the aorta. IMPRESSION: 1. No confluent infiltrates. Justicifation of Admission Dx: Justifications for Admission: Justification of Admission Dx: Yes Angina: Symp at Rest WILLY LYONS MD Nov 13, 2019 15:40
[2019-11-13] MEDS ORDERED: CLON0.2T PO (15:44)
[2019-11-13] MEDS ORDERED: LORA-434 PO (15:44)
[2019-11-13] MEDS ORDERED: PANT40TA77 PO (15:44)
[2019-11-13] MEDS ORDERED: TRAZ-118 PO (15:53)
--- NOTE | 2019-11-13 15:54 | PDOC3 ---
Discharge Summary Visit Information Date of Admission: Nov 12, 2019 Date of Discharge: Nov 13, 2019 Admitting Diagnosis: Chest pain Final Diagnosis Problems Medical Problems: (1) Alcohol withdrawal Status: Acute (2) Chest pain Status: Acute Brief Hospital Course Allergies Allergies Coded Allergies Type Severity Reaction Last Updated Verified morphine Allergy Severe blisters, sob 03/15/16 Yes Vital Signs Vital Signs Date Time Temp Pulse Resp B/P (MAP) Pulse Ox O2 Delivery O2 Flow Rate FiO2 11/13/19 14:17 98.0 75 20 125/66 (85) 94 Room Air 98.0 Lab Results Laboratory Tests Test 11/12/19 10:15 11/12/19 16:00 11/12/19 18:15 11/13/19 04:00 White Blood Count 7.2 x10^3/uL (4.0-11.0) 6.4 x10^3/uL (4.0-11.0) Red Blood Count 4.21 x10^6/uL (4.30-5.70) 3.68 x10^6/uL (4.30-5.70) Hemoglobin 14.3 g/dL (13.0-17.5) 12.2 g/dL (13.0-17.5) Hematocrit 40.1 % (39.0-53.0) 35.2 % (39.0-53.0) Mean Corpuscular Volume 95 fL (79-100) 96 fL (79-100) Mean Corpuscular Hemoglobin 34 pg (25-35) 33 pg (25-35) Mean Corpuscular Hemoglobin Concent 36 g/dL (31-37) 35 g/dL (31-37) Red Cell Distribution Width 13.6 % (11.5-14.5) 13.6 % (11.5-14.5) Platelet Count 365 x10^3/uL (140-400) 290 x10^3/uL (140-400) Neutrophils (%) (Auto) 63 % (31-73) 55 % (31-73) Lymphocytes (%) (Auto) 24 % (24-48) 31 % (24-48) Monocytes (%) (Auto) 11 % (0-9) 10 % (0-9) Eosinophils (%) (Auto) 1 % (0-3) 4 % (0-3) Basophils (%) (Auto) 1 % (0-3) 1 % (0-3) Neutrophils # (Auto) 4.5 x10^3/uL (1.8-7.7) 3.5 x10^3/uL (1.8-7.7) Lymphocytes # (Auto) 1.7 x10^3/uL (1.0-4.8) 2.0 x10^3/uL (1.0-4.8) Monocytes # (Auto) 0.8 x10^3/uL (0.0-1.1) 0.6 x10^3/uL (0.0-1.1) Eosinophils # (Auto) 0.1 x10^3/uL (0.0-0.7) 0.2 x10^3/uL (0.0-0.7) Basophils # (Auto) 0.1 x10^3/uL (0.0-0.2) 0.1 x10^3/uL (0.0-0.2) Prothrombin Time 12.4 SEC (11.7-14.0) Prothromb Time International Ratio 1.0 (0.8-1.1) Sodium Level 137 mmol/L (136-145) 135 mmol/L (136-145) Potassium Level 4.1 mmol/L (3.5-5.1) 4.0 mmol/L (3.5-5.1) Chloride Level 98 mmol/L (98-107) 102 mmol/L (98-107) Carbon Dioxide Level 28 mmol/L (21-32) 26 mmol/L (21-32) Anion Gap 11 (6-14) 7 (6-14) Blood Urea Nitrogen 15 mg/dL (8-26) 11 mg/dL (8-26) Creatinine 1.0 mg/dL (0.7-1.3) 0.9 mg/dL (0.7-1.3) Estimated GFR (Cockcroft-Gault) 76.7 86.7 BUN/Creatinine Ratio 15 (6-20) Glucose Level 142 mg/dL (70-99) 141 mg/dL (70-99) Calcium Level 8.8 mg/dL (8.5-10.1) 7.7 mg/dL (8.5-10.1) Magnesium Level 1.8 mg/dL (1.8-2.4) Total Bilirubin 0.7 mg/dL (0.2-1.0) Aspartate Amino Transf (AST/SGOT) 41 U/L (15-37) Alanine Aminotransferase (ALT/SGPT) 39 U/L (16-63) Alkaline Phosphatase 163 U/L (46-116) Creatine Kinase 133 U/L (39-308) Troponin I Quantitative < 0.017 ng/mL (0.000-0.055) < 0.017 ng/mL (0.000-0.055) < 0.017 ng/mL (0.000-0.055) Total Protein 7.5 g/dL (6.4-8.2) Albumin 3.5 g/dL (3.4-5.0) Albumin/Globulin Ratio 0.9 (1.0-1.7) Thyroid Stimulating Hormone (TSH) 6.128 uIU/mL (0.358-3.74) Urine Collection Type Unknown Urine Color Yellow Urine Clarity Clear Urine pH 7.5 (<5.0-8.0) Urine Specific [place] 1.015 (1.000-1.030) Urine Protein Negative mg/dL (NEG-TRACE) Urine Glucose (UA) Negative mg/dL (NEG) Urine Ketones (Stick) Negative mg/dL (NEG) Urine Blood Negative (NEG) Urine Nitrite Negative (NEG) Urine Bilirubin Negative (NEG) Urine Urobilinogen Dipstick 0.2 mg/dL (0.2 mg/dL) Urine Leukocyte Esterase Negative (NEG) Urine RBC 0 /HPF (0-2) Urine WBC 1-4 /HPF (0-4) Urine Bacteria 0 /HPF (0-FEW) Urine Hyaline Casts Few /HPF Urine Opiates Screen Neg (NEG) Urine Methadone Screen Neg (NEG) Urine Barbiturates Neg (NEG) Urine Phencyclidine Screen Neg (NEG) Urine Amphetamine/Methamphetamine Neg (NEG) Urine Benzodiazepines Screen Neg (NEG) Urine Cocaine Screen Neg (NEG) Urine Cannabinoids Screen Neg (NEG) Urine Ethyl Alcohol Neg (NEG) Triglycerides Level 349 mg/dL (0-150) Cholesterol Level 225 mg/dL (0-200) LDL Cholesterol, Calculated 115 mg/dL (0-100) VLDL Cholesterol, Calculated 70 mg/dL (0-40) Non-HDL Cholesterol Calculated 185 mg/dL (0-129) HDL Cholesterol 40 mg/dL (40-60) Cholesterol/HDL Ratio 5.6 Laboratory Tests Test 11/12/19 16:00 11/12/19 18:15 11/13/19 04:00 Urine Collection Type Unknown Urine Color Yellow Urine Clarity Clear Urine pH 7.5 (<5.0-8.0) Urine Specific [place] 1.015 (1.000-1.030) Urine Protein Negative mg/dL (NEG-TRACE) Urine Glucose (UA) Negative mg/dL (NEG) Urine Ketones (Stick) Negative mg/dL (NEG) Urine Blood Negative (NEG) Urine Nitrite Negative (NEG) Urine Bilirubin Negative (NEG) Urine Urobilinogen Dipstick 0.2 mg/dL (0.2 mg/dL) Urine Leukocyte Esterase Negative (NEG) Urine RBC 0 /HPF (0-2) Urine WBC 1-4 /HPF (0-4) Urine Bacteria 0 /HPF (0-FEW) Urine Hyaline Casts Few /HPF Troponin I Quantitative < 0.017 ng/mL (0.000-0.055) < 0.017 ng/mL (0.000-0.055) Urine Opiates Screen Neg (NEG) Urine Methadone Screen Neg (NEG) Urine Barbiturates Neg (NEG) Urine Phencyclidine Screen Neg (NEG) Urine Amphetamine/Methamphetamine Neg (NEG) Urine Benzodiazepines Screen Neg (NEG) Urine Cocaine Screen Neg (NEG) Urine Cannabinoids Screen Neg (NEG) Urine Ethyl Alcohol Neg (NEG) White Blood Count 6.4 x10^3/uL (4.0-11.0) Red Blood Count 3.68 x10^6/uL (4.30-5.70) Hemoglobin 12.2 g/dL (13.0-17.5) Hematocrit 35.2 % (39.0-53.0) Mean Corpuscular Volume 96 fL (79-100) Mean Corpuscular Hemoglobin 33 pg (25-35) Mean Corpuscular Hemoglobin Concent 35 g/dL (31-37) Red Cell Distribution Width 13.6 % (11.5-14.5) Platelet Count 290 x10^3/uL (140-400) Neutrophils (%) (Auto) 55 % (31-73) Lymphocytes (%) (Auto) 31 % (24-48) Monocytes (%) (Auto) 10 % (0-9) Eosinophils (%) (Auto) 4 % (0-3) Basophils (%) (Auto) 1 % (0-3) Neutrophils # (Auto) 3.5 x10^3/uL (1.8-7.7) Lymphocytes # (Auto) 2.0 x10^3/uL (1.0-4.8) Monocytes # (Auto) 0.6 x10^3/uL (0.0-1.1) Eosinophils # (Auto) 0.2 x10^3/uL (0.0-0.7) Basophils # (Auto) 0.1 x10^3/uL (0.0-0.2) Sodium Level 135 mmol/L (136-145) Potassium Level 4.0 mmol/L (3.5-5.1) Chloride Level 102 mmol/L (98-107) Carbon Dioxide Level 26 mmol/L (21-32) Anion Gap 7 (6-14) Blood Urea Nitrogen 11 mg/dL (8-26) Creatinine 0.9 mg/dL (0.7-1.3) Estimated GFR (Cockcroft-Gault) 86.7 Glucose Level 141 mg/dL (70-99) Calcium Level 7.7 mg/dL (8.5-10.1) Triglycerides Level 349 mg/dL (0-150) Cholesterol Level 225 mg/dL (0-200) LDL Cholesterol, Calculated 115 mg/dL (0-100) VLDL Cholesterol, Calculated 70 mg/dL (0-40) Non-HDL Cholesterol Calculated 185 mg/dL (0-129) HDL Cholesterol 40 mg/dL (40-60) Cholesterol/HDL Ratio 5.6 Brief Hospital Course Mr Blair is a 59 yo M admitted for complains of chest pain. He used to drink alcohol and sober for about 1 yr and his brother 2 months ago from colon CA and started drinking heavily again with beers and whiskey. He tried to finally make some changes and curbed his drinking significantly and started having symptoms this morning randing from nonradiating midchest pressure with some SOA and diaphoresis. She has gross arm/hand tremors and telling me that he is ready to quit ETOH again. No hx of any recent falls or injury and has not been having any exertional CP nor [place]. No hx of CAD, VTE but has hx of AFIB with past ablation few years back and has not been having any palpitations and no longer on BB and eliquis but is on clonidine for HTN. 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 Despite his heavy drinking he is able to function in his job. Negative work-up for cardiac etiology. He feels improved today no further chest pain he thinks this is anxiety probably alcohol related. Plan: Discharge with clonidine, a few days of Ativan, pantoprazole, atorvastatin. EKG with sinus tach, Left axis deviation, LAFB, LVH. No STEMI, no atrial abnormalities. Troponin negative x3. Will see cardiology outpatient. Consults: Cardiology ECHOCARDIOGRAM: 04/01/16 1339 <Conclusion> The left ventricle is normal size. Left ventricle systolic function is normal. The Ejection Fraction is 55-60%. The left atrium is mildly dilated. There is no thrombus noted in the left atrial appendage. There is no significant aortic valvular stenosis. Doppler and Color Flow revealed no significant aortic regurgitation. Doppler and Color Flow revealed moderate mitral regurgitation. Doppler and Color Flow revealed mild to moderate tricuspid regurgitation. STRESS TEST 03/22/16 1352 Conclusion 1. No EKG evidence of ischemia but limited assessment due to atrial flutter with RVR. 2. Normal perfusion at stress/rest. 3. Low risk study. 4. EF preserved at > 70% Problem list: Atypical Chest pain: initial trop nml. suspect GI irritation from significant ETOH intake, doubt ACS Alcohol abuse with DT symptoms: recently started drinking heavily in the last 2 months and stopped 2 days ago Anxiety/grief: brother 2 months ago HTN urgency PAFIB: past ablation. SR, no longer taking BB nor NOAC since ablation Hypothyroidism: subtherapeutic with TSH at 6 Hx of open pericardial window HX of PUD and hodgkins lymphoma Greater than 30 minutes spent on d/c home. Discharge Information Condition at Discharge: Improved Follow Up: Weeks (1) Disposition/Orders: D/C to Home Scheduled Aspirin (Aspirin Ec) 81 Mg Tablet., 81 MG PO DAILYWBK, #30 Prescribed by: LORENZO WINSLOW MD on 03/19/16 1210 Last Action: Continued on 11/13/19 1531 by WILLY LYONS MD Atorvastatin Calcium (Atorvastatin Calcium) 10 Mg Tablet, 10 MG PO QHS for 30 Days Prescribed by: LORENZO WINSLOW MD on 03/19/16 1210 Last Action: Continued on 11/13/19 153 by WILLY LYONS MD Clonidine Hcl (Clonidine Hcl) 0.2 Mg Tablet, 0.2 MG PO Q8HRS for HTN, withdrawal for 90 Days, #270 Ref 3 Prescribed by: WILLY LYONS MD on 11/13/19 1544 Levothyroxine Sodium (Synthroid) 125 Mcg Tablet, 125 MCG PO DAILY07, #30 Prescribed by: LORENZO WINSLOW MD on 03/19/16 1210 Last Action: Continued on 11/13/19 153 by WILLY LYONS MD [place]-3 Fatty Acids/Fish Oil (Fish Oil 1,000 Mg Capsule) 1,000 Mg Capsule, 2,000 MG PO BID for 30 Days, Ref 3 Prescribed by: KARI COULTER on 08/02/14 1302 Last Action: Continued on 11/13/191530 by WILLY LYONS MD Pantoprazole Sodium (Pantoprazole Sodium ) 40 Mg Tablet.dr, 40 MG PO DAILY for GERD for 90 Days, #90 Ref 3 Prescribed by: WILLY LYONS MD on 11/13/19 1544 Trazodone Hcl (Trazodone Hcl) 50 Mg Tablet, 1 TAB PO QHS for Sleep for 90 Days, #90 Ref 2 Prescribed by: WILLY LYONS MD on 11/13/19 1553 Scheduled PRN Lorazepam (Ativan) 1 Mg Tablet, 1 MG PO TID PRN PRN for ANXIETY / AGITATION for 6 Days, #18 Prescribed by: WILLY LYONS MD on 11/13/19 1545 Miscellaneous Medications Mag Hydrox/Al Hydrox/Simeth (Maalox Maximum Strength Susp) 355 Ml Oral.susp, 355 ML PO, (Reported) Entered as Reported by: Shayy Hernandez on 03/16/16 0006 Last Action: Continued on 11/13/191530 by WILLY LYONS MD Discontinued Medications Alprazolam (Xanax) 1 Mg Tablet, 1 TAB PO PRN TID PRN for ANXIETY / AGITATION, #60 (Reported) Entered as Reported by: NICOLA WINSLOW on 06/14/16 1700 Apixaban (Eliquis) 5 Mg Tablet, 5 MG PO, (Reported) Entered as Reported by: NICOLA GOLDY on 06/14/16 1659 Last Action: Discontinued on 11/12/191618 by ANISH CHOPRA Flecainide Acetate (Flecainide Acetate) 50 Mg Tablet, 100 MG PO Q12HR, #60 Prescribed by: SIMBA CASTILLO MD on 03/29/16 1057 Last Action: Discontinued on 11/12/191618 by ANISH CHOPRA Levofloxacin (Levaquin) 750 Mg Tablet, 1 TAB PO DAILY, #7 Prescribed by: LINDSEY KIRBY D.O. on 09/18/182154 Lorazepam (Lorazepam) 1 Mg Tablet, 1 MG PO TID PRN PRN for ANXIETY / AGITATION, (Reported) Entered as Reported by: DAI CORONADO on 06/14/16 1721 Last Action: Continued on 11/13/19 153 by WILLY LYONS MD Metoprolol Tartrate (Metoprolol Tartrate) 25 Mg Tablet, 25 MG PO BID, #60 Prescribed by: SIMBA CASTILLO MD on 03/29/16 1057 Last Action: Discontinued on 11/12/191618 by ANISH CHOPRA Oxycodone Hcl (Oxycodone Hcl Immed.release ) 5 Mg Tablet, 5 MG PO PRN Q6HRS PRN for PAIN, #20 Prescribed by: SIMBA CASTILLO MD on 03/29/16 1059 Justicifation of Admission Dx: Justifications for Admission: Justification of Admission Dx: Yes Angina: Symp at Rest WILLY LYONS MD Nov 13, 2019 15:54
[2019-11-13 15:57] VITALS: BP 125/66
[2019-11-13] MEDS ORDERED: LIDO:MAALOX 1:1 20 ML SINGLE DOSE. SWSW ONE (16:00)
--- NOTE | 2019-11-13 17:15 | NUR ---
Discharge Note: MIGUEL HERNANDEZ Discharge instructions and discharge home medications reviewed with Patient and a copy given. All questions have been answered and understanding verbalized. The following instructions and handouts were given: Chest pain and alcohol detox Discontinued iv line and catheter intact. Patient discharged to home with self-care via his own vehicle.
[2019-11-13] MEDS ORDERED: ATORVASTATIN CALCIUM 10 MG TABLET. PO SCH (21:00)
[2019-11-13] MEDS ORDERED: OMEGA-3 FATTY ACIDS/FISH OIL 1,000 MG CAPSULE. PO SCH (21:00)
--- NOTE | 2019-11-13 23:24 | PDOC ---
CARDIOLOGY PROGRESS NOTE SUBJECTIVE: No acute issues overnight. OBJECTIVE: Vital Signs/I&O: Vital Signs Date Time Temp Pulse Resp B/P (MAP) Pulse Ox O2 Delivery O2 Flow Rate FiO2 11/13/19 15:57 75 125/66 11/13/19 14:17 98.0 20 94 Room Air 98.0 I & O 11/12/19 11/12/19 11/13/19 15:00 23:00 07:00 Intake Total 500 ml 50 ml 900 ml Output Total 500 ml 700 ml Balance 500 ml -450 ml 200 ml Objective: GEN.: No apparent distress. Alert and oriented. HEENT: Head is normocephalic, atraumatic NECK: Supple. LUNGS: Clear to auscultation. HEART: RRR, S1, S2 present. Peripheral pulses intact ABDOMEN: Soft, nontender. Positive bowel sounds. EXTREMITIES: Without any cyanosis. NEUROLOGIC: Normal speech, normal tone PSYCHIATRIC: Normal affect, normal mood. SKIN: No ulcerations DIAGNOSTIC TESTING: Labs: Laboratory Tests 11/13/19 04:00 Laboratory Tests Test 11/13/19 04:00 White Blood Count 6.4 x10^3/uL (4.0-11.0) Red Blood Count 3.68 x10^6/uL (4.30-5.70) L Hemoglobin 12.2 g/dL (13.0-17.5) L Hematocrit 35.2 % (39.0-53.0) L Mean Corpuscular Volume 96 fL (79-100) Mean Corpuscular Hemoglobin 33 pg (25-35) Mean Corpuscular Hemoglobin Concent 35 g/dL (31-37) Red Cell Distribution Width 13.6 % (11.5-14.5) Platelet Count 290 x10^3/uL (140-400) Neutrophils (%) (Auto) 55 % (31-73) Lymphocytes (%) (Auto) 31 % (24-48) Monocytes (%) (Auto) 10 % (0-9) H Eosinophils (%) (Auto) 4 % (0-3) H Basophils (%) (Auto) 1 % (0-3) Neutrophils # (Auto) 3.5 x10^3/uL (1.8-7.7) Lymphocytes # (Auto) 2.0 x10^3/uL (1.0-4.8) Monocytes # (Auto) 0.6 x10^3/uL (0.0-1.1) Eosinophils # (Auto) 0.2 x10^3/uL (0.0-0.7) Basophils # (Auto) 0.1 x10^3/uL (0.0-0.2) Sodium Level 135 mmol/L (136-145) L Potassium Level 4.0 mmol/L (3.5-5.1) Chloride Level 102 mmol/L (98-107) Carbon Dioxide Level 26 mmol/L (21-32) Anion Gap 7 (6-14) Blood Urea Nitrogen 11 mg/dL (8-26) Creatinine 0.9 mg/dL (0.7-1.3) Estimated GFR (Cockcroft-Gault) 86.7 Glucose Level 141 mg/dL (70-99) H Calcium Level 7.7 mg/dL (8.5-10.1) L Cholesterol Level 225 mg/dL (0-200) H LDL Cholesterol, Calculated 115 mg/dL (0-100) H VLDL Cholesterol, Calculated 70 mg/dL (0-40) H Non-HDL Cholesterol Calculated 185 mg/dL (0-129) H Cholesterol/HDL Ratio 5.6 ASSESSMENT: 1. Chest pain - non-cardiac PLAN: 1. No new issues. 2. Continue same meds. Ok to DC from CV standpoint Justicifation of Admission Dx: Justifications for Admission: Justification of Admission Dx: Yes Angina: Symp at Rest DEBRA RAMIRES MD Nov 13, 2019 23:24
[2019-11-14] MEDS ORDERED: LEVOTHYROXINE 125 MCG TABLET PO SCH (06:00)
[2019-11-14] MEDS ORDERED: ASPIRIN ENTERIC COATED 81 MG TABLET.DR. PO SCH (08:00)
[2019-11-14] MEDS ORDERED: MAG HYDROX/ALUMINUM HYD/SIMETH 30 ML ORAL.SUSP PO SCH (09:00)
--- NOTE | 2019-11-15 06:24 | EKG ---
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
[2019-11-17] MEDS ORDERED: FOLIC ACID 1 MG TABLET. PO SCH (09:00)
[2019-11-17] MEDS ORDERED: THIAMINE 100 MG TABLET. PO SCH (09:00)
[2019-11-17] MEDS ORDERED: MULTIVITAMIN with MINERAL TABLET. PO SCH (09:00)
== END 2019-11-13 17:18 | disposition home or self-care (01) | DRG 897 ==
LOC: ER 10:03 → 2 NORTH 13:45
PROVIDERS: ADMIT Internal Medicine; ATTEND Internal Medicine
DX: F10.231 Alcohol dependence with withdrawal delirium (principal); I24.9 Acute ischemic heart disease, unspecified; R07.89 Other chest pain; F41.9 Anxiety disorder, unspecified; I48.91 Unspecified atrial fibrillation; Y90.9 Presence of alcohol in blood, level not specified; I11.9 Hypertensive heart disease without heart failure; I16.0 Hypertensive urgency; E03.9 Hypothyroidism, unspecified; Z79.899 Other long term (current) drug therapy; Z87.11 Personal history of peptic ulcer disease; Z90.49 Acquired absence of other specified parts of digestive tract; Z90.81 Acquired absence of spleen; Z80.0 Family history of malignant neoplasm of digestive organs
CPT/HCPCS: 36415; 71045; 80048; 80053; 80061; 80307; 81001; 82550; 83735; 84443; 84484; 85025; 85610; 93005; 96361; 96374; 96375; J2060; J2405; J3010; J3411; J3490; J7030; J7040; 99285-25; G0378

== ENCOUNTER 2020-12-12 14:40 | Emergency (ER) | payer OTHER ==
[~2020-12-12] VITALS: Ht 182.9 cm; Wt 79.0 kg
[~2020-12-12 14:40] MED LIST changes: +AMLO-186 PO; -AMLO5TAB10 PO; +CHLO25CA9 PO; +CLON0.2T PO; +ONDA4TAB12 PO; +PANT40TA77 PO; +TRAZ-118 PO
[2020-12-12 15:23] LABS: BASO # 0.1 x10^3/uL (0.0-0.2); BASO % 1 % (0-3); EOS # 0.3 x10^3/uL (0.0-0.7); EOS % 3 % (0-3); HEMATOCRIT 38.5 % (39.0-53.0); HEMOGLOBIN 13.4 g/dL (13.0-17.5); LYMPH # 2.2 x10^3/uL (1.0-4.8); LYMPH % 23 % (24-48); MEAN CORPUSCULAR HEMOGLOBIN 33 pg (25-35); MEAN CORPUSCULAR HGB CONC 35 g/dL (31-37); MEAN CORPUSCULAR VOLUME 94 fL (79-100); MONO % 10 % (0-9); NEUT # 6.2 x10^3/uL (1.8-7.7); NEUT % 63 % (31-73); PLATELET COUNT 376 x10^3/uL (140-400); RED BLOOD COUNT 4.11 x10^6/uL (4.30-5.70); RED CELL DISTRIBUTION WIDTH 14.3 % (11.5-14.5); WHITE BLOOD COUNT 9.8 x10^3/uL (4.0-11.0)
[2020-12-12 15:29] LABS: CALCIUM 9.3 mg/dL (8.5-10.1); CREATININE 0.8 mg/dL (0.7-1.3); GFR 98.9; POTASSIUM 4.5 mmol/L (3.5-5.1)
--- NOTE | 2020-12-12 15:30 | RAD ---
EXAM: CHEST ONE VIEW. HISTORY: Chest pain. COMPARISON: 11/12/2019. FINDINGS: A frontal view of the chest is obtained. There are changes of coronary artery bypass grafti ng. There are no confluent infiltrates. There is no pneumothorax or pleural effusion. The heart is not en larged. Calcified lymph nodes likely reflect old granulomatous disease. IMPRESSION: 1. No confluent infiltrates. Electronically signed by: Daysi Robertson MD (12/12/2020 3:28 PM) [id number]
[2020-12-12 15:35] LABS: ALBUMIN 3.5 g/dL (3.4-5.0); MAGNESIUM 1.7 mg/dL (1.8-2.4); TOTAL BILIRUBIN 0.6 mg/dL (0.2-1.0); TOTAL PROTEIN 7.1 g/dL (6.4-8.2)
[2020-12-12] MEDS ORDERED: MULTIVIT INFUSN,ADULT 4,VIT K 10 ML, THIAMINE INJ 100 MG, FOLIC ACID INJ 1 MG in IV NOR... IV ONE (15:45)
[2020-12-12] MEDS ORDERED: ONDANSETRON PF 4 MG/2 ML VIAL. IVP ONE (15:45)
[2020-12-12] MEDS ORDERED: IV NORMAL SALINE 1000ML BAG 1,000 ML IV ONE (16:15)
--- NOTE | 2020-12-12 17:22 | PHYS DOC ---
Past Medical History Past Medical History: A-Fib, Alcoholism, Anxiety, Arrhythmia, Cancer, Hypertension, Other Additional Past Medical Histor: SPONT PNEUMO, HODGKINS X2 (1979, 1990), PERICARDIAL STRIPPING, SVT (LINDSEY DANIELLE APRN) Past Surgical History: Appendectomy, Splenectomy, Other Additional Past Surgical Histo: TAIL OF PANCREAS REMOVED, PERICARDIAL STRIPPING, (LINDSEY DANIELLE APRN) Smoking Status: Never Smoker Alcohol Use: Heavy Additional Information: "TRYING TO GET SOBER." Drug Use: None (LINDSEY DANIELLE APRN) General Adult EDM: Chief Complaint: CHEST PAIN HPI: HPI: Patient is a 60 year old male who presents to the emergency department with chief complaint of alcohol withdrawal syndrome. Patient reports he has been alcoholic for several years and is trying to self wean from alcohol slowly over the past week. Patient reports he started having severe nausea with muscle tremors today and had to self treat with 2 double shots of fireball approximately 3 hours prior to arrival. Patient denies smoking cigarettes, denies illicit drug use. Patient reports he drinks 3-4 small bottles of fireball per night along with a sixpack of beer and has done this for several months. Patient reports that he wishes to withdraw from alcohol stating that he noticed that it will kill him eventually if he does not stop. Patient reports he developed chest pain when he started developing severe nausea and muscle tremors. Patient denies chest congestion, nasal congestion, fever or chills. Patient states he has not had the COVID-19 virus vaccination series. Patient de nies having seizures with alcohol withdrawal however states he has not had a alcohol withdrawal syndrome in the past. Patient denies visual or auditory hallucinations, denies tactile hallucinations. Patient states he has been sweating most of the day. Patient denies any other physical complaints or physical concerns. Patient does report a history of a pericardial stripping several years ago related to radiation damage from his Hodgkin's lymphoma therapy. Patient reports a history of hypertension. Patient states she is in remission for Hodgkin's lymphoma. (LINDSEY DANIELLE APRN) Review of Systems: Review of Systems: 14 body systems of review of systems have been reviewed. See HPI for pertinent positives and negative responses, otherwise all other systems are negative, nonpertinent or noncontributory. Constitutional: Negative except as outlined in HPI above. Skin: Negative except as outlined in HPI above. Eyes: Negative except as outlined in HPI above. HENT: Negative except as outlined in HPI above. Respiratory: Negative except as outlined in HPI above. Cardiovascular: Negative except as outlined in HPI above. GI: Negative except as outlined in HPI above. : Negative except as outlined in HPI above. Musculoskeletal: Negative except as outlined in HPI above. Integument: Negative except as outlined in HPI above. Neurologic: Negative except as outlined in HPI above. Endocrine: Negative except as outlined in HPI above. Lymphatic: Negative except as outlined in HPI above. Psychiatric: Negative except as outlined in HPI above. (LINDSEY DANIELLE APRN) Heart Score: C/O Chest Pain: Yes HEART Score for Chest Pain: HEART Score for Chest Pain Response (Comments) Value History Moderately Suspicious 1 ECG Normal 0 Age >45 - < 65 1 Risk Factors 1 or 2 Risk Factors 1 Troponin < Normal Limit 0 Total 3 Risk Factors: Risk Factors: DM, Current or recent (<one month) smoker, HTN, HLP, family history of CAD, obesity. Risk Scores: Score 0 - 3: 2.5% MACE over next 6 weeks - Discharge Home Score 4 - 6: 20.3% MACE over next 6 weeks - Admit for Clinical Observation Score 7 - 10: 72.7% MACE over next 6 weeks - Early Invasive Strategies (LINDSEY DANIELLE APRN) Current Medications: Current Medications Medications (Trade) Dose Ordered Sig/Fernanda Start Time Stop Time Status Last Admin Dose Admin Lorazepam (Ativan Inj) 1 mg 1X ONCE 12/12/20 16:15 12/12/20 16:16 DC 12/12/20 16:22 1 MG Multivitamins 10 ml/Thiamine HCl 100 mg/Folic Acid 1 mg/Sodium Chloride 1,011.2 ml @ 1,000.088 mls/hr 1X ONCE 12/12/20 15:45 12/12/20 16:45 DC 12/12/20 16:22 1,000.088 MLS/HR Ondansetron HCl (Zofran) 4 mg 1X ONCE 12/12/20 15:45 12/12/20 15:46 DC 12/12/20 15:40 4 MG Sodium Chloride 1,000 ml @ 1,000 mls/hr 1X ONCE 12/12/20 16:15 12/12/20 17:14 (LINDSEY DANIELLE APRN) Allergies: Allergies: Allergies Coded Allergies Type Severity Reaction Last Updated Verified morphine Allergy Severe blisters, sob 03/15/16 Yes (LINDSEY DANIELLE APRN) Physical Exam: PE: Constitutional: Well developed, well nourished, no acute distress, patient appears mildly diaphoretic, mildly toxic in appearance, extremity tremors during physical examination, CIWA-Ar score equals 11. HENT: Normocephalic, atraumatic, bilateral external ears normal, oropharynx moist, no oral exudates, nose normal. No drooling, no trismus. Eyes: PERRLA, EOMI, conjunctiva normal, no discharge. Neck: Normal range of motion, no tenderness, supple, no stridor. No nuchal rigidity, no meningismus signs. Cardiovascular:Heart rate regular rhythm, no murmur heart rate 103 during physical examination, confirmed with 5-lead EKG and radial palpation. Lungs & Thorax: Bilateral breath sounds clear to auscultation no adventitious lung sounds appreciated audibly or per auscultation. Abdomen: Bowel sounds normal, soft, no tenderness, no masses, no pulsatile masses. Skin: Warm, dry, no erythema, no rash. Palms clammy, perspiration on forehead. Back: No tenderness, no CVA tenderness. Extremities: No tenderness, no cyanosis, no clubbing, ROM intact, no edema. Extremity tremors with upper extremities extended. Distal cap refill less than 2 seconds, 2+ radial pulses bilaterally. Neurologic: Alert and oriented X 3, normal motor function, normal sensory function, no focal deficits noted. Psychologic: Affect normal, judgement normal, mood normal. Patient denies homicidal or suicidal ideation, patient is tearful during examination. (LINDSEY DANIELLE APRN) Current Patient Data: Labs: Laboratory Tests Test 12/12/20 15:01 12/12/20 16:09 White Blood Count 9.8 x10^3/uL (4.0-11.0) Red Blood Count 4.11 x10^6/uL (4.30-5.70) L Hemoglobin 13.4 g/dL (13.0-17.5) Hematocrit 38.5 % (39.0-53.0) L Mean Corpuscular Volume 94 fL (79-100) Mean Corpuscular Hemoglobin 33 pg (25-35) Mean Corpuscular Hemoglobin Concent 35 g/dL (31-37) Red Cell Distribution Width 14.3 % (11.5-14.5) Platelet Count 376 x10^3/uL (140-400) Neutrophils (%) (Auto) 63 % (31-73) Lymphocytes (%) (Auto) 23 % (24-48) L Monocytes (%) (Auto) 10 % (0-9) H Eosinophils (%) (Auto) 3 % (0-3) Basophils (%) (Auto) 1 % (0-3) Neutrophils # (Auto) 6.2 x10^3/uL (1.8-7.7) Lymphocytes # (Auto) 2.2 x10^3/uL (1.0-4.8) Monocytes # (Auto) 1.0 x10^3/uL (0.0-1.1) Eosinophils # (Auto) 0.3 x10^3/uL (0.0-0.7) Basophils # (Auto) 0.1 x10^3/uL (0.0-0.2) Sodium Level 138 mmol/L (136-145) Potassium Level 4.5 mmol/L (3.5-5.1) Chloride Level 99 mmol/L (98-107) Carbon Dioxide Level 28 mmol/L (21-32) Anion Gap 11 (6-14) Blood Urea Nitrogen 11 mg/dL (8-26) Creatinine 0.8 mg/dL (0.7-1.3) Estimated GFR (Cockcroft-Gault) 98.9 BUN/Creatinine Ratio 14 (6-20) Glucose Level 171 mg/dL (70-99) H Calcium Level 9.3 mg/dL (8.5-10.1) Magnesium Level 1.7 mg/dL (1.8-2.4) L Total Bilirubin 0.6 mg/dL (0.2-1.0) Aspartate Amino Transferase (AST) 28 U/L (15-37) Alanine Aminotransferase (ALT) 35 U/L (16-63) Alkaline Phosphatase 168 U/L (46-116) H Creatine Kinase 113 U/L (39-308) Creatine Kinase MB (Mass) 1.9 ng/mL (0.0-3.6) Creatine Kinase MB Relative Index 1.7 % (0-4) Troponin I Quantitative < 0.017 ng/mL (0.000-0.055) Total Protein 7.1 g/dL (6.4-8.2) Albumin 3.5 g/dL (3.4-5.0) Albumin/Globulin Ratio 1.0 (1.0-1.7) Ethyl Alcohol Level 13 mg/dL (0-10) H Activated Partial Thromboplast Time 26 SEC (24-38) Laboratory Tests 12/12/20 15:01 Laboratory Tests 12/12/20 15:01 Vital Signs: Vital Signs Date Time Temp Pulse Resp B/P (MAP) Pulse Ox O2 Delivery O2 Flow Rate FiO2 12/12/20 14:48 99.1 102 16 177/83 (98) 97 Room Air 99.1 (LINDSEY DANIELLE APRN) EKG: EKG: EKG performed at 1450 by ED nursing staff shows a normal sinus rhythm without other ectopy, heart rate 99 bpm, [place] interval 0.136, QTc interval 0.439, no acute STEMI, no ACS, no acute ischemia appreciated however there is a T wave inversion in high lateral leads aVL, EKG interpreted by ED attending physician Dr. Henning. (LINDSEY DANIELLE APRN) Radiology/Procedures: Radiology/Procedures: PATIENT: MIGUEL HERNANDEZ ACCOUNT: [id number] : 1960 LOCATION: ER AGE: 60 SEX: M EXAM STATUS: REG ER ORD. PHYSICIAN: LINDSEY DANIELLE APRN REASON: chest pain PROCEDURE: CHEST AP ONLY EXAM: CHEST ONE VIEW. HISTORY: Chest pain. COMPARISON: 11/12/2019. FINDINGS: A frontal view of the chest is obtained. There are changes of coronary artery bypass grafting. There are no confluent infiltrates. There is no pneumothorax or pleural effusion. The heart is not enlarged. Calcified lymph nodes likely reflect old granulomatous disease. IMPRESSION: 1. No confluent infiltrates. Electronically signed by: Daysi Robertson MD (12/12/2020 3:28 PM) [id number] DICTATED and SIGNED BY: JEANETH ROBERTSON MD DATE: 12/12/20 [id number] (LINDSEY DANIELLE APRN) Course & Med Decision Making: Course & Med Decision Making Pertinent Labs and Imaging studies reviewed. (See chart for details) 60-year-old male, vital signs reviewed, presents to the emergency department worried about alcohol withdraw and asking for help for alcohol cessation. Patient's physical examination concerning for delirium tremens. Will order ED work-up for DTs. Reveal a cardiac history related to his radiation therapy for Hodgkin's lymphoma, will order cardiorespiratory work-up as well. Patient alcohol level equals 13, upon reevaluation of the patient, banana bag is infusing, patient reports his nausea seems under control at this time and has not vomited, patient continues to have extremity tremors. Patient's magnesium 1.7, liver enzymes not concerning, patient's CMP within normal limits, blood sugar is slightly elevated at 198. Patient did state he does drink because no one will treat him for his anxiety problems, patient's alcohol level and lab values did not support a history of alcoholism that the patient reports. The patient is currently in no apparent distress, vital signs are within normal limits, the patient no longer has chest pains. The patient's cardiorespiratory work-up was nonconcerning. Will consult PAT service desk team lead for evaluation outpatient alcohol treatment. Discussed findings with inpatient management physician Dr. Murray who agrees with this plan. Discussed patient case and ED work-up with PAT service desk team lead Susie who states she will come to [facility] and evaluate the patient. End of shift report discussed with ED attending physician Dr. Mcginnis who has assumed patient care at this time, still awaiting PAT service desk team lead Susie to evaluate patient for alcohol treatment. Patient remains in no apparent distress, is resting in room comfortably, nontoxic in appearance, hemodynamically stable. (LINDSEY DANIELLE APRN) Course & Med Decision Making Assumed care at shift change disposition pending Pat assessment. Patient was assessed --- no need for inpatient psychiatric admission. Patient denies any HI or SI. Patient was provided with detox information. Patient must schedule detox outpatient. Patient without signs or symptoms of alcohol withdrawal. His vital signs are stable he has no tremor. Patient will be discharged home. (DINA MCGINNIS DO) Dragon Disclaimer: Dragon Disclaimer: This electronic medical record was generated, in whole or in part, using a voice recognition dictation system. (LINDSEY DANIELLE APRN) Departure Departure Impression: Primary Impression: Alcohol abuse Disposition: 01 HOME / SELF CARE / HOMELESS Condition: STABLE Referrals: NO PCP (PCP) Patient Instructions: Alcohol Problems LINDSEY DANIELLE APRN Dec 12, 2020 17:22 DINA MCGINNIS DO Dec 12, 2020 20:02
[2020-12-12 19:40] VITALS: BP 158/79
[2020-12-12] MEDS ORDERED: LORA0.5T96 PO (20:05)
[2020-12-12] MEDS ORDERED: CLON0.2T PO (20:22)
== END 2020-12-12 20:22 | disposition home or self-care (01) ==
LOC: ER 14:40
DX: F10.139 Alcohol abuse with withdrawal, unspecified (principal); Y90.0 Blood alcohol level of less than 20 mg/100 ml; I48.91 Unspecified atrial fibrillation; I10 Essential (primary) hypertension; Z88.5 Allergy status to narcotic agent
CPT/HCPCS: 36415; 71045; 80053; 82553; 83735; 84484; 85025; 85730; 96365; 96375; 96376; 99285; G0480; J2060; J2405; J3411; J3490; J7030

== ENCOUNTER 2021-01-24 08:32 | Emergency (ER) | payer OTHER ==
[~2021-01-24] VITALS: Ht 182.9 cm; Wt 86.0 kg
[~2021-01-24 08:32] MED LIST changes: +LORA0.5T96 PO
--- NOTE | 2021-01-24 09:19 | RAD ---
XR CHEST 1V History: Chest pain Comparison: 12/12/2020, 11/12/2019 Technique: Portable AP radiograph of the chest. Findings: The lungs are adequately inflated. No airspace consolidation, pleural effusion or pneumothorax. Bilat eral apical pleural thickening is redemonstrated. There are bilateral densely calcified mediastinal l ymph nodes. Postsurgical changes of the sternum. Calcified aortic arch. Heart size and pulmonary vasc ulature are within normal limits. No acute osseous abnormality. Impression: 1. No acute cardiopulmonary process. Electronically signed by: Tyron Sanchez MD (01/24/2021 9:17 AM) [id number]
[2021-01-24 09:57] LABS: BASO # 0.1 x10^3/uL (0.0-0.2); BASO % 1 % (0-3); EOS # 0.1 x10^3/uL (0.0-0.7); EOS % 1 % (0-3); HEMATOCRIT 38.1 % (39.0-53.0); HEMOGLOBIN 13.1 g/dL (13.0-17.5); LYMPH # 2.1 x10^3/uL (1.0-4.8); LYMPH % 20 % (24-48); MEAN CORPUSCULAR HEMOGLOBIN 32 pg (25-35); MEAN CORPUSCULAR HGB CONC 34 g/dL (31-37); MEAN CORPUSCULAR VOLUME 94 fL (79-100); MONO % 10 % (0-9); NEUT % 68 % (31-73); PLATELET COUNT 378 x10^3/uL (140-400); RED BLOOD COUNT 4.04 x10^6/uL (4.30-5.70); RED CELL DISTRIBUTION WIDTH 14.3 % (11.5-14.5); WHITE BLOOD COUNT 10.3 x10^3/uL (4.0-11.0)
[2021-01-24 10:28] LABS: CALCIUM 8.9 mg/dL (8.5-10.1); CREATININE 0.9 mg/dL (0.7-1.3); GFR 86.4; POTASSIUM 3.9 mmol/L (3.5-5.1)
[2021-01-24 10:32] LABS: ALBUMIN 3.6 g/dL (3.4-5.0); MAGNESIUM 1.5 mg/dL (1.8-2.4); TOTAL BILIRUBIN 0.8 mg/dL (0.2-1.0); TOTAL PROTEIN 7.3 g/dL (6.4-8.2)
[2021-01-24] MEDS ORDERED: IOHEXOL 350 MG/ML 100 ML VIAL. IV ONE (11:00)
[2021-01-24] MEDS ORDERED: CONTRAST GIVEN. MC PRN (11:15)
[2021-01-24] MEDS ORDERED: IV NORMAL SALINE 1000ML BAG 1,000 ML IV ONE (11:30)
--- NOTE | 2021-01-24 12:02 | RAD ---
EXAM: CT chest with contrast - pulmonary embolus protocol CLINICAL HISTORY: Reason: cp, r/o pe / Spl. Instructions: OMNI 350 INJ. 100 MLS / History: . COMPARISON: CT chest from June 17, 2016 TECHNIQUE: CT of the chest following the administration of intravenous contrast during the pulmonary arterial phase. Axial, coronal and sagittal reformatted images were generated including MIP images. ---PQRS compliance statement - One or more of the following individualized dose reduction techniques were utilized for this study: 1. Automated exposure control 2. Adjustment of the mA and/or kV according to patient size 3. Use of iterative reconstruction technique--- FINDINGS: CHEST: Diagnostic quality: Suboptimal. Pulmonary emboli: No pulmonary emboli to the level of the segmental branches. More peripheral vessel s are not well assessed. Right heart strain: None Pulmonary arteries: Normal in caliber. Heart size is normal. No pericardial effusion. Similar atherosclerotic disease of the thoracic aorta. The thoracic aorta and other major branching vessels appear normal in course and caliber. Redemonstr ated changes of coronary artery bypass grafting with intact median sternotomy wires. No pathologicall y enlarged mediastinal or perihilar lymph nodes. Similar biapical pleural thickening/scarring. No foc al airspace consolidation, pneumothorax, or pleural effusion. Similar areas of nodular scarring invol ving the superior segments of bilateral lower lobes. No new suspicious pulmonary abnormalities. Visualized Upper abdomen: There is a small amount of fluid within the distal esophagus may represent reflex and/or delayed motility. No evidence of new acute process in the visualized portion of the upp er abdomen. Bones: Multilevel degenerative changes with no acute suspicious osseous amount. IMPRESSION: 1. No evidence of pulmonary nodules and to the level of the segmental pulmonary arteries. 2. No evidence of acute cardiopulmonary process. Electronically signed by: Clayton Larson DO (01/24/2021 12:00 PM) [id number]
[2021-01-24] MEDS ORDERED: HYDR25TA PO (14:11)
--- NOTE | 2021-01-24 14:13 | PHYS DOC ---
Past Medical History Past Medical History: A-Fib, Alcoholism, Anxiety, Arrhythmia, Cancer, Hypertension, Other Additional Past Medical Histor: pneumothorax Past Surgical History: Other Additional Past Surgical Histo: ablation Smoking Status: Never Smoker Alcohol Use: None Drug Use: None General Adult EDM: Chief Complaint: CHEST PAIN HPI: HPI: 60 yo M PMH Hodgkin's lymphoma (x2 w/radiation), hypertension, atrial fibrillation status post ablation 3 years ago, and anxiety, presents to the ED with complaints of " substernal, nonradiating chest pain," described as tight and pressure-like with associated nausea that occurred 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 Reports history of normal stress test 3 years ago. States his uncle yesterday from a suspected thromboembolus. Patient with no known history of COVID, is not vaccinated. Denies any history of alcohol, drug use or cocaine abuse. Patient states his heart was racing and that his anxiety is not well controlled. Reports he was on Ativan in the past and asks if he can be prescribed anxiety medication. 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 No personal or family history of AAA, AAD, CTD (eh[place] or marfans), cardiac arrhythmias (need for AICD), CAD, sudden or unexplainable (under 50 years of age or with exertion), or clotting disorders. Review of Systems: Review of Systems: Constitutional: Denies fever or chills. [] Eyes: Denies change in visual acuity. [] HENT: Denies nasal congestion or sore throat. [] Respiratory: Denies cough or shortness of breath. [] Cardiovascular: Denies syncope or edema. [] GI: Denies abdominal pain, vomiting, bloody stools or diarrhea. [] : Denies dysuria or dysuria Musculoskeletal: Denies back pain or joint pain. [] Integument: Denies rash or diaphoresis Neurologic: Denies headache, focal weakness or sensory changes. [] Endocrine: Denies polyuria or polydipsia. [] Lymphatic: Denies swollen glands. [] Psychiatric: Denies depression or suicidal ideations Heart Score: C/O Chest Pain: Yes HEART Score for Chest Pain: HEART Score for Chest Pain Response (Comments) Value History Slighlty/Non-Suspicious 0 ECG Nonspecific Repolarizatio 1 Age >45 - < 65 1 Risk Factors 1 or 2 Risk Factors 1 Troponin < Normal Limit 0 Total 3 Risk Factors: Risk Factors: DM, Current or recent (<one month) smoker, HTN, HLP, family history of CAD, obesity. Risk Scores: Score 0 - 3: 2.5% MACE over next 6 weeks - Discharge Home Score 4 - 6: 20.3% MACE over next 6 weeks - Admit for Clinical Observation Score 7 - 10: 72.7% MACE over next 6 weeks - Early Invasive Strategies Current Medications: Current Medications Medications (Trade) Dose Ordered Sig/Fernanda Start Time Stop Time Status Last Admin Dose Admin Info (CONTRAST GIVEN -- Rx MONITORING) 1 each PRN DAILY PRN 01/24/21 11:15 01/26/21 11:14 Iohexol (Omnipaque 350 Mg/ml) 100 ml 1X ONCE 01/24/21 11:00 01/24/21 11:01 DC 01/24/21 11:12 100 ML Lorazepam (Ativan Inj) 1 mg 1X ONCE 01/24/21 11:30 01/24/21 11:31 DC 01/24/21 11:48 1 MG Sodium Chloride 1,000 ml @ 1,000 mls/hr 1X ONCE 01/24/21 11:30 01/24/21 12:29 DC 01/24/21 11:47 1,000 MLS/HR Allergies: Allergies: Allergies Coded Allergies Type Severity Reaction Last Updated Verified morphine Allergy Severe blisters, sob 03/15/16 Yes Physical Exam: PE: Constitutional: Well developed, well nourished, no acute distress, non-toxic appearance. HENT: Normocephalic, atraumatic, Eyes: EOMI, conjunctiva normal, no discharge. Neck: Normal range of motion, supple, Cardiovascular: S1/2 present, tachycardia 102 on arrival, large vertical chest/abdominal wall scar Lungs & Thorax: Speaking in full sentences, bilateral equal chest rise, no tachypnea or increased work of breathing Abdomen: soft, no tenderness, Skin: Warm, dry, no erythema, no rash. [] Back: No tenderness, no CVA tenderness. [] Extremities: No tenderness, no cyanosis, no lower extremity edema Neurologic: Alert and oriented X 3, normal motor function, normal sensory function, no focal deficits noted. [] Psychologic: Normal judgment, fidgeting/anxious Current Patient Data: Labs: Laboratory Tests Test 01/24/21 08:52 01/24/21 11:45 White Blood Count 10.3 x10^3/uL (4.0-11.0) Red Blood Count 4.04 x10^6/uL (4.30-5.70) L Hemoglobin 13.1 g/dL (13.0-17.5) Hematocrit 38.1 % (39.0-53.0) L Mean Corpuscular Volume 94 fL (79-100) Mean Corpuscular Hemoglobin 32 pg (25-35) Mean Corpuscular Hemoglobin Concent 34 g/dL (31-37) Red Cell Distribution Width 14.3 % (11.5-14.5) Platelet Count 378 x10^3/uL (140-400) Neutrophils (%) (Auto) 68 % (31-73) Lymphocytes (%) (Auto) 20 % (24-48) L Monocytes (%) (Auto) 10 % (0-9) H Eosinophils (%) (Auto) 1 % (0-3) Basophils (%) (Auto) 1 % (0-3) Neutrophils # (Auto) 7.0 x10^3/uL (1.8-7.7) Lymphocytes # (Auto) 2.1 x10^3/uL (1.0-4.8) Monocytes # (Auto) 1.0 x10^3/uL (0.0-1.1) Eosinophils # (Auto) 0.1 x10^3/uL (0.0-0.7) Basophils # (Auto) 0.1 x10^3/uL (0.0-0.2) Sodium Level 136 mmol/L (136-145) Potassium Level 3.9 mmol/L (3.5-5.1) Chloride Level 98 mmol/L (98-107) Carbon Dioxide Level 27 mmol/L (21-32) Anion Gap 11 (6-14) Blood Urea Nitrogen 7 mg/dL (8-26) L Creatinine 0.9 mg/dL (0.7-1.3) Estimated GFR (Cockcroft-Gault) 86.4 BUN/Creatinine Ratio 8 (6-20) Glucose Level 128 mg/dL (70-99) H Calcium Level 8.9 mg/dL (8.5-10.1) Magnesium Level 1.5 mg/dL (1.8-2.4) L Total Bilirubin 0.8 mg/dL (0.2-1.0) Aspartate Amino Transferase (AST) 30 U/L (15-37) Alanine Aminotransferase (ALT) 28 U/L (16-63) Alkaline Phosphatase 132 U/L (46-116) H Troponin I Quantitative < 0.017 ng/mL (0.000-0.055) 0.023 ng/mL (0.000-0.055) XD-Gyw-X-Type Natriuretic Peptide 765 pg/mL (0-124) H Total Protein 7.3 g/dL (6.4-8.2) Albumin 3.6 g/dL (3.4-5.0) Albumin/Globulin Ratio 1.0 (1.0-1.7) Lipase 44 U/L (73-393) L Laboratory Tests 01/24/21 08:52 Laboratory Tests 01/24/21 08:52 Vital Signs: Vital Signs Date Time Temp Pulse Resp B/P (MAP) Pulse Ox O2 Delivery O2 Flow Rate FiO2 01/24/21 12:57 85 14 173/79 (110) 96 Room Air 01/24/21 08:54 98.5 98.5 EKG: EKG: Sinus rhythm 96 bpm, left axis deviation, QTC 476, no T wave inversion, no ST elevation or ST depression Q-wave 1 and aVL V5/6, new q-waves in V5/6 compared to 2017 ekg Radiology/Procedures: Radiology/Procedures: IMAGING REPORT Signed PATIENT: MIGUEL HERNANDEZ ACCOUNT: [id number] : 1960 LOCATION: ER AGE: 60 SEX: M EXAM STATUS: PRE ER ORD. PHYSICIAN: GAUDENCIO JOAQUIN DO REASON: daniel PROCEDURE: PORTABLE CHEST 1V XR CHEST 1V History: Chest pain Comparison: 12/12/2020, 11/12/2019 Technique: Portable AP radiograph of the chest. Findings: The lungs are adequately inflated. No airspace consolidation, pleural effusion or pneumothorax. Bilateral apical pleural thickening is redemonstrated. There are bilateral densely calcified mediastinal lymph nodes. Postsurgical changes of the sternum. Calcified aortic arch. Heart size and pulmonary vasculature are within normal limits. No acute osseous abnormality. Impression: 1. No acute cardiopulmonary process. Electronically signed by: Tyron Langley MD (01/24/2021 9:17 AM) [id number] DICTATED and SIGNED BY: TYRON LANGLEY MD DATE: 01/24/21 [id number] 0 IMAGING REPORT Signed PATIENT: MIGUEL HERNANDEZ ACCOUNT: [id number] : 1960 LOCATION: ER AGE: 60 SEX: M EXAM STATUS: REG ER ORD. PHYSICIAN: GAUDENCIO JOAQUIN DO REASON: cp, r/o pe PROCEDURE: CT ANGIOGRAPHY CHEST EXAM: CT chest with contrast - pulmonary embolus protocol CLINICAL HISTORY: Reason: cp, r/o pe / Spl. Instructions: OMNI 350 INJ. 100 MLS / History: . COMPARISON: CT chest from June 17, 2016 TECHNIQUE: CT of the chest following the administration of intravenous contrast during the pulmonary arterial phase. Axial, coronal and sagittal reformatted images were generated including MIP images. ---PQRS compliance statement - One or more of the following individualized dose reduction techniques were utilized for this study: 1. Automated exposure control 2. Adjustment of the mA and/or kV according to patient size 3. Use of iterative reconstruction technique--- FINDINGS: CHEST: Diagnostic quality: Suboptimal. Pulmonary emboli: No pulmonary emboli to the level of the segmental branches. More peripheral vessels are not well assessed. Right heart strain: None Pulmonary arteries: Normal in caliber. Heart size is normal. No pericardial effusion. Similar atherosclerotic disease of the thoracic aorta. The thoracic aorta and other major branching vessels appear normal in course and caliber. Redemonstrated changes of coronary artery bypass grafting with intact median sternotomy wires. No pathologically enlarged mediastinal or perihilar lymph nodes. Similar biapical pleural thickening/scarring. No focal airspace consolidation, pneumothorax, or pleural effusion. Similar areas of nodular scarring involving the superior segments of bilateral lower lobes. No new suspicious pulmonary abnormalities. Visualized Upper abdomen: There is a small amount of fluid within the distal esophagus may represent reflex and/or delayed motility. No evidence of new acute process in the visualized portion of the upper abdomen. Bones: Multilevel degenerative changes with no acute suspicious osseous amount. IMPRESSION: 1. No evidence of pulmonary nodules and to the level of the segmental pulmonary arteries. 2. No evidence of acute cardiopulmonary process. Electronically signed by: Vanna Larson DO (01/24/2021 12:00 PM) [id number] DICTATED and SIGNED BY: VANNA LARSON DO DATE: 01/24/21 [id number] 0 Course & Med Decision Making: Course & Med Decision Making Pertinent Labs and Imaging studies reviewed. (See chart for details) Concern for atypical chest pain in a low risk male (MACE 3) with associated uncontrolled anxiety. 2 troponins unremarkable. CTA with no infiltrates, no pulmonary embolism and normal caliber of aorta. Anxiety improved after anxiolytic medication in emergency department and chest pain resolved, pt stated "I think it was just my anxiety." EKG with no ST segment elevations. Will prescribe Atarax. Will discharge home with strict ED return precautions were given for chest heaviness, diaphoresis, weight on the chest, dyspnea, hemop tysis, syncope or neurologic deficits. Encouraged urgent outpatient follow-up with PMD and cardiology for outpatient evaluation of atypical chest pain. Life- threatening processes were considered but are low suspicion at this time, given history, physical exam and ED workup. Pt was educated on all prescription medications and adverse effects. All patient's questions were answered and pt was stable at time of discharge. Life/limb-threatening differential includes but is not limited to, acute my ocardial infarction, aortic dissection, congestive heart failure, esophageal injury including rupture, surgical abdomen, arrhythmia, cardiomyopathy, myocarditis, pericarditis, peptic ulcer disease, pneumomediastinum, pneumonia, pneumothorax, pulmonary embolus, unstable angina, rib fracture, contusion, pericardial tamponade or effusion, traumatic injury including mediastinal hemorrhage or hematoma, or pulmonary contusion. I have spoken with the patient and/or caregivers. I explained the patient's condition, diagnoses and treatment plan based on the information available to me at this time. I have answered the patient and/or caregiver's questions and addressed any concerns. The patient and/or caregivers have a good understanding of patient's diagnosis, condition and treatment plan as can be expected at this point. Vital signs have been stable. Patient's condition is stable and approp riate for discharge from the emergency department. Patient will pursue further outpatient evaluation with primary care physician or other designated or consulting physician as outlined in the discharge instructions. The patient and/or caregivers are agreeable to this plan of care and follow-up instructions have been explained in detail. The patient and/or caregivers have received these instructions in written form and have expressed an understanding of the discharge instructions. The patient and/or caregivers are aware that any significant change of condition or worsening of symptoms shou ld prompt immediate return to this or the closest emergency department or call to 911. Sadi Disclaimer: Sadi Disclaimer: This electronic medical record was generated, in whole or in part, using a voice recognition dictation system. Departure Departure Impression: Primary Impression: Chest pain Additional Impression: Anxiety Disposition: HOME / SELF CARE / HOMELESS Condition: IMPROVED Referrals: NO PCP (PCP) Follow-up with your primary care physician in 24 to 48 hours OR FOLLOW UP WITH FAMILY MEDICINE: [address] [facility] [address] [place] [address] Patient Instructions: Anxiety and Panic Attacks, Chest Pain (Nonspecific) Additional Instructions: FOLLOW UP WITH CARDIOLOGY: FOR DEFINITIVE MANAGEMENT [facility] [address] [facility] [address] [place] [address] EMERGENCY DEPARTMENT GENERAL DISCHARGE INSTRUCTIONS Thank you for coming to [facility] Emergency Department (ED) today and trusting us with you care. We trust that you had a positive experience in our Emergency Department. If you wish to speak to the department management, you may call the Director at [phone]. YOUR FOLLOW UP INSTRUCTIONS ARE FOLLOWS: 1. Do you have a private Doctor? If you do not have a private doctor, please ask for a resource list of physicians or clinics that may be able to assist you with follow up care. 2. The Emergency Physicain has interpreted your x-rays. The X-Ray specialist will also review them. If there is a change in the findings, you will be notified in 48 hours when at all possible. 3. A lab test or culture has been done, your results will be reviewed and you will be notified if you need a change in treatment. ADDITIONAL INSTRUCTIONS AND INFORMATION: 1. Your care today has been supervised by a physician who is specially trained in emergency care. Many problems require more than one evaluation for a complete diagnosis and treatment. We recommend that you schedule your follow up appointment as recommended to ensure complete treatment of you illness or injury. If you are unable to obtain follow up care and continue to have a problem, or if your condition worsens, we recommend that you return to the ED. 2. We are not able to safely determine your condition over the phone nor are we able to give sound medical advice over the phone. For these safety reasons, if you call for medical advice we will ask you to come to the ED for further evaluation. 3. If you have any questions regarding these discharge instructions please call the ED at [phone]. SAFETY INFORMATION: In the interest of safety, wellness, and injury prevention; we encourage you to wear your sealbelt, if you smoke; quite smoking, and we encourage family to use a protective helmet for bicycling and other sporting events that present an increased risk for head injury. IF YOUR SYMPTOMS WORSEN OR NEW SYMPTOMS DEVELOP, OR YOU HAVE CONCERNS ABOUT YOUR CONDITION; OR IF YOUR CONDITION WORSENS WHILE YOU ARE WAITING FOR YOUR FOLLOW UP APPOINTMENT; EITHER CONTACT YOUR PRIMARY CARE DOCTOR, THE PHYSICIAN WHOSE NAME AND NUMBER YOU WERE GIVEN, OR RETURN TO THE ED IMMEDIATELY. Scripts Hydroxyzine Hcl (HYDROXYZINE HCL) 25 Mg Tablet 1 TAB PO TID PRN for ANXIETY, #20 TAB Prov: GAUDENCIO JOAQUIN DO 01/24/21 GAUDENCIO JOAQUIN DO Jan 24, 2021 14:13
--- NOTE | 2021-01-24 14:39 | EKG ---
[facility] [address] [place] [address] Test Date: 2021-01-24 Test Time: 08:43:14 Pat Name: MIGUEL HERNANDEZ Department: Room: Gender: M [employer]: : 1960 Requested By: GAUDENCIO JOAQUIN Order Number: [id number] Reading MD: Measurements Intervals [place] Rate: 96 P: 90 RI: 130 QRS: -42 QRSD: 108 T: 60 QT: 376 QTc: 476 Interpretive Statements SINUS RHYTHM ABNORMAL LEFT AXIS DEVIATION LEFT ANTERIOR FASCICULAR BLOCK LEFT VENTRICULAR HYPERTROPHY PROLONGED QT ABNORMAL ECG RI6.02 No previous ECG available for comparison
[2021-01-24 14:50] VITALS: BP 155/68
== END 2021-01-24 14:52 | disposition home or self-care (01) ==
LOC: ER 08:32
DX: R07.2 Precordial pain (principal); F41.9 Anxiety disorder, unspecified; R11.0 Nausea; I48.91 Unspecified atrial fibrillation; I10 Essential (primary) hypertension; Z88.5 Allergy status to narcotic agent
CPT/HCPCS: 36415; 71045; 71275; 80053; 83690; 83735; 83880; 84484; 85025; 93005; 96361; 96374; 99285; J2060; J7030; Q9967

== ENCOUNTER 2021-06-14 08:33 | Emergency (ER) | payer SELFPAY ==
[~2021-06-14] VITALS: Ht 180.3 cm; Wt 72.2 kg
[~2021-06-14 08:33] MED LIST changes: +FAMO20TA5 PO; +HYDR25TA PO
--- NOTE | 2021-06-14 09:32 | RAD ---
EXAM: Left tibia and fibula, 2 views; left femur, 2 views. HISTORY: Fall. COMPARISON: None. FINDINGS: 2 views of the tibia and fibula and femur are obtained. There is no fracture, dislocation o r subluxation. There is no suspicious osseous lesion. There is no periosteal reaction. There is no ra diodense foreign body. There is a tiny os acetabulum. IMPRESSION: No acute osseous finding. Electronically signed by: Kathleen De La Cruz MD (06/14/2021 9:30 AM) [id number]
--- NOTE | 2021-06-14 10:19 | RAD ---
CT HEAD AND C-SPINE WO History: Fall off porch. Head and neck pain. Comparison: CT head 06/28/2020 Technique: Noncontrast CT of the head and cervical spine. Findings: CT HEAD: There is no evidence for intracranial mass or hemorrhage. There is no hydrocephalus or midline shift. No abnormal extra-axial fluid collections are present. No evidence of acute territorial infarction. The visualized paranasal sinuses and mastoid air cells are clear. The skull and scalp are within normal limits. CT CERVICAL SPINE: There is no evidence for fracture in the cervical spine. There is a calcified mass eccentric to the right within the spinal canal measuring 1.8 x 0.9 x 2.0 cm with mass effect on the spinal cord at the level of C7-T1. Calcifications of the internal carotid arteries bilaterally. Disc spaces are preserved. No destructive osseous lesions are seen. Peripherally calcified left thyroid hypodense nodule measuring 2.3 cm. Impression: 1. No acute intracranial findings. 2. No acute osseous abnormality in the cervical spine. 3. Calcified mass measuring 1.8 x 0.9 x 2.0 cm in the spinal canal at the level of C7-T1 with mass e ffect on the spinal cord. This is favored to represent calcified meningioma. Recommend neurosurgery c onsultation and MRI of cervical spine for further evaluation. 4. Peripherally calcified left thyroid nodule measuring 2.3 cm diameter. Recommend thyroid ultrasoun d for further evaluation. Findings discussed with CARLOS A PEDROZA DO at 06/14/2021 10:13 AM. FOR INTERNAL CODING PURPOSES RESULT CODE: (C) ------- Exposure: One or more of the following individualized dose reduction techniques were utilized for thi s examination: 1. Automated exposure control 2. Adjustment of the mA and/or kV according to patient size 3. Use of iterative reconstruction technique. Electronically signed by: Tyron Sanchez MD (06/14/2021 10:16 AM) [id number]
[2021-06-14] MEDS ORDERED: HYDROcodone/APAP 5/325MG 1 TAB TABLET PO ONE (12:00)
[2021-06-14] MEDS ORDERED: NAPR500T8 PO (12:06)
--- NOTE | 2021-06-14 12:06 | PHYS DOC ---
Past Medical History Past Medical History: A-Fib, Alcoholism, Anxiety, Arrhythmia, Cancer, Hyp ertension, Other Additional Past Medical Histor: SPONT PNEUMOTHORAX Past Surgical History: Other Additional Past Surgical Histo: ablation,LAPAROTOMY,SPLEENECTOMY,PERICARDIAL STRIPPING Smoking Status: Never Smoker Alcohol Use: Heavy Drug Use: None General Adult EDM: Chief Complaint: MECHANICAL FALL HPI: HPI: Patient is a 60 year old male who present to ER for evaluation of left lower extremity injury. Patient said he was walking on his porch this morning, he accidentally slipped and fell down, he landed on his left side his left lower extremity hit wound 2 x 4 on the ground, he did bang the back of his head on the floor.. Patient denies any loss of consciousness. Patient denies any neck pain, no upper extremity numbness or weakness, patient denied any nausea vomiting, no abdominal pain, no chest pain. Review of Systems: Review of Systems: Constitutional: Denies fever or chills. [] Eyes: Denies change in visual acuity. [] HENT: Denies nasal congestion or sore throat. [] Respiratory: Denies cough or shortness of breath. [] Cardiovascular: Denies chest pain or edema. [] GI: Denies abdominal pain, nausea, vomiting, bloody stools or diarrhea. [] : Denies dysuria. [] Musculoskeletal: Denies back pain or joint pain. Positive for left leg pain, left thigh pain Integument: Denies rash. [ Neurologic: Positive for headache, no focal neurological deficit, no focal weakness or sensory changes. Endocrine: Denies polyuria or polydipsia. [] Lymphatic: Denies swollen glands. [] Psychiatric: Denies depression or anxiety. [] Heart Score: C/O Chest Pain: N/A Risk Factors: Risk Factors: DM, Current or recent (<one month) smoker, HTN, HLP, family history of CAD, obesity. Risk Scores: Score 0 - 3: 2.5% MACE over next 6 weeks - Discharge Home Score 4 - 6: 20.3% MACE over next 6 weeks - Admit for Clinical Observation Score 7 - 10: 72.7% MACE over next 6 weeks - Early Invasive Strategies Current Medications: Current Medications Medications (Trade) Dose Ordered Sig/Fernanda Start Time Stop Time Status Last Admin Dose Admin Acetaminophen/ Hydrocodone Bitart (Lortab 5/325) 1 tab 1X ONCE 06/14/21 12:00 06/14/21 12:01 Allergies: Allergies: Allergies Coded Allergies Type Severity Reaction Last Updated Verified morphine Allergy Severe blisters, sob 06/14/21 Yes Physical Exam: PE: Constitutional: Well developed, well nourished, no acute distress, non-toxic appearance. [] HENT: Normocephalic, atraumatic, bilateral external ears normal, oropharynx moist, no oral exudates, nose normal. [] Eyes: PERRLA, EOMI, conjunctiva normal, no discharge. [] Neck: Normal range of motion, no tenderness, supple, no stridor. There is no midline cervical spine tenderness to palpation Cardiovascular:Heart rate regular rhythm, loud systolic murmur [] Lungs & Thorax: Bilateral breath sounds clear to auscultation [] Abdomen: Bowel sounds normal, soft, no tenderness, no masses, no pulsatile masses. [] Skin: Warm, dry, no erythema, no rash. [] Back: No tenderness, no CVA tenderness. [] Extremities: The inner thigh on the left side with skin contusion, tender to palpation. The inner thigh along the left calf area also tender to palpation with skin contusion. There is no open wound Neurologic: Alert and oriented X 3, normal motor function, normal sensory function, no focal deficits noted. [] Psychologic: Affect normal, judgement normal, mood normal. [] Current Patient Data: Vital Signs: Vital Signs Date Time Temp Pulse Resp B/P (MAP) Pulse Ox O2 Delivery O2 Flow Rate FiO2 06/14/21 10:28 78 136/70 (92) 90 Room Air 06/14/21 09:21 16 06/14/21 08:45 97.7 97.7 EKG: EKG: [] Radiology/Procedures: Radiology/Procedures: [][facility] [address] [place], [place] [id number] IMAGING REPORT Signed PATIENT: MIGUEL HERNANDEZ ACCOUNT: [id number] : 1960 LOCATION: ER AGE: 60 SEX: M EXAM STATUS: REG ER ORD. PHYSICIAN: CARLOS A PEDROZA DO REASON: fell off the porch, head and neck pain PROCEDURE: CT HEAD AND CERVICAL SPINE WO CT HEAD AND C-SPINE WO History: Fall off porch. Head and neck pain. Comparison: CT head 06/28/2020 Technique: Noncontrast CT of the head and cervical spine. Findings: CT HEAD: There is no evidence for intracranial mass or hemorrhage. There is no hydrocephalus or midline shift. No abnormal extra-axial fluid collections are present. No evidence of acute territorial infarction. The visualized paranasal sinuses and mastoid air cells are clear. The skull and scalp are within normal limits. CT CERVICAL SPINE: There is no evidence for fracture in the cervical spine. There is a calcified mass eccentric to the right within the spinal canal me asuring 1.8 x 0.9 x 2.0 cm with mass effect on the spinal cord at the level of C7-T1. Calcifications of the internal carotid arteries bilaterally. Disc spaces are preserved. No destructive osseous lesions are seen. Peripherally calcified left thyroid hypodense nodule measuring 2.3 cm. Impression: 1. No acute intracranial findings. 2. No acute osseous abnormality in the cervical spine. 3. Calcified mass measuring 1.8 x 0.9 x 2.0 cm in the spinal canal at the level of C7-T1 with mass effect on the spinal cord. This is favored to represent calcified meningioma. Recommend neurosurgery consultation and MRI of cervical spine for further evaluation. 4. Peripherally calcified left thyroid nodule measuring 2.3 cm diameter. Recommend thyroid ultrasound for further evaluation. Findings discussed with CARLOS A PEDROZA DO at 06/14/2021 10:13 AM. FOR INTERNAL CODING PURPOSES RESULT CODE: (C) ------- Exposure: One or more of the following individualized dose reduction techniques were utilized for this examination: 1. Automated exposure control 2. Adjustment of the mA and/or kV according to patient size 3. Use of iterative reconstruction technique. Electronically signed by: Tyron Langley MD (06/14/2021 10:16 AM) [id number] DICTATED and SIGNED BY: TYRON LANGLEY MD DATE: 06/14/21 [id number] [facility] [address] [place], [place] [id number] IMAGING REPORT Signed PATIENT: MIGUEL HERNANDEZ ACCOUNT: [id number] : 1960 LOCATION: ER AGE: 60 SEX: M EXAM STATUS: REG ER ORD. PHYSICIAN: CARLOS A PEDROZA DO REASON: fell, left leg injury PROCEDURE: TIBIA FIBULA LEFT EXAM: Left tibia and fibula, 2 views; left femur, 2 views. HISTORY: Fall. COMPARISON: None. FINDINGS: 2 views of the tibia and fibula and femur are obtained. There is no fracture, dislocation or subluxation. There is no suspicious osseous lesion. There is no periosteal reaction. There is no radiodense foreign body. There is a tiny os acetabulum. IMPRESSION: No acute osseous finding. Electronically signed by: Kathleen Durbin MD (06/14/2021 9:30 AM) [id number] DICTATED and SIGNED BY: KATHLEEN DURBIN MD DATE: 06/14/21 [id number] Course & Med Decision Making: Course & Med Decision Making Pertinent Labs and Imaging studies reviewed. (See chart for details) Patient is a 60-year-old male who was evaluated in the ER after he fell on his porch, landed on his left lower extremity, hit the back of his head on the floor. No loss of consciousness. CT scan of head head did not show any acute problem, CT scan of cervical spine show a calcified mass measuring about 1.8 x 0.9 x 2 cm in the spinal canal at the level of C7 and T1 with mass-effect on the spinal cord. Patient denies any numbness or weakness in his upper extremity. Patient denies any dizziness. Patient actually denies any neck pain. I co nsulted the neurosurgeon on-call Dr. Pascual Thakkar, discussed with his SUPERVISOR PROCESS TESTING, Megan Vincent. She discussed the case with Dr. Pascual Thakkar who recommended to discharge patient home, she will call him later this afternoon to schedule for an outpatient MRI. I discussed with the patient the plan of care and he is amenable to plan of care. Patient also stated that he know about the thyroid nodule, he had a needle biopsy in the past and it came back negative Dragon Disclaimer: Dragon Disclaimer: This electronic medical record was generated, in whole or in part, using a voice recognition dictation system. Departure Departure Impression: Primary Impression: Scalp contusion Additional Impression: Contusion of left lower extremity Disposition: HOME / SELF CARE / HOMELESS Condition: STABLE Referrals: NO PCP (PCP) PASCUAL LANDON MD Please follow up with Dr. Landon for outpatient evaluation of a mass that was found on CT scan of your c-spine today. Dr. Landon's SUPERVISOR PROCESS TESTING, Megan, will call you to set up the appointment. Patient Instructions: Contusion, Head Injury, Adult Additional Instructions: You were found to have a calcified mass measured about 1.8 by 0.9 by 2 cm in the spinal canal at the level of C7-T1 area. You will need to follow up with Neurosurgery for outpatient evaluation with MRI of your c-spine. Scripts Naproxen (NAPROXEN) 500 Mg Tablet.dr 1 TAB PO BID PRN for PAIN, #30 TAB 2 Refills Prov: CARLOS A PEDROZA DO 06/14/21 CARLOS A PEDROZA DO Jun 14, 2021 12:06
[2021-06-14 13:11] VITALS: BP 141/58
[2021-06-14] MEDS ORDERED: ONDANSETRON ODT 4 MG TAB.RAPDIS. PO ONE (13:30)
--- NOTE | 2021-06-14 17:22 | PDOC ---
Provider Note Date of Service: DATE: 06/14/21 TIME: 17:21 Provider Note Attempted to call patient for appt and arrangements of cervical MRI phone number listed was called and is not in service called daughter's number which is also not in service Justifications for Admission Other Justification JOHN LANDON MD Jun 14, 2021 17:22
== END 2021-06-14 13:16 | disposition home or self-care (01) ==
LOC: ER 08:33
DX: S80.12XA Contusion of left lower leg, initial encounter (principal); S00.03XA Contusion of scalp, initial encounter; M54.2 Cervicalgia; I48.91 Unspecified atrial fibrillation; I10 Essential (primary) hypertension; F10.20 Alcohol dependence, uncomplicated; Y90.9 Presence of alcohol in blood, level not specified; Z88.5 Allergy status to narcotic agent; W01.0XXA Fall on same level from slipping, tripping and stumbling without subsequent striking against object, initial encounter; Y93.89 Activity, other specified; Y92.89 Other specified places as the place of occurrence of the external cause; Y99.8 Other external cause status
CPT/HCPCS: 70450; 72125; 73552; 73590; 82962; 99285-25

== ENCOUNTER 2021-06-20 12:05 | Observation (INO) | payer BC ==
[~2021-06-20] VITALS: Ht 180.3 cm; Wt 76.2 kg
[~2021-06-20 12:05] MED LIST changes: +NAPR500T8 PO
--- NOTE | 2021-06-20 12:19 | PHYS DOC ---
Past Medical History Past Medical History: A-Fib, Alcoholism, Anxiety, Arrhythmia, Cancer, Hyp ertension, Other Additional Past Medical Histor: SPONT PNEUMOTHORAX Past Surgical History: Other Additional Past Surgical Histo: ablation,LAPAROTOMY,SPLEENECTOMY,PERICARDIAL STRIPPING Smoking Status: Never Smoker Alcohol Use: Heavy Drug Use: None General Adult EDM: Chief Complaint: WEAKNESS/GENERALIZED HPI: HPI: Patient is a 60 year old male who presents here with multiple complaints. He reports that he has felt "disoriented," and he feels like he has difficulty walking. He feels generalized malaise and fatigue. He reports feeling intermittently dizzy. He denies fall, syncope, near syncope, chest pain, palpitations, dyspnea, Behzad pain, nausea, vomiting. He does report some polyuria and polydipsia symptoms. He does not have any known history of diabetes mellitus. However, his random glucose on chemistry here is 308. He has a history of alcohol use disorder, he has been sober for almost 2 weeks. He reports that he "detox." He reports feeling some significant anxiety. This is chronic for him. He does have a history of paroxysmal atrial fibrillation. He reports that he does not know if he is been in atrial fibrillation recently, he has not seen cardiology, he is not currently taking any antiarrhythmics. He had previously taken multiple medications for atrial fibrillation, he had previously been anticoagulated. He is not taking anything except [id number] supplements. He does not currently have a primary care physician. He indicates to me that he was told that he could come off his regularly prescribed medications by his previous primary care doctor at one point in time, quite some time ago. He was seen here recently after minor head injury, was given return precautions and concussion instructions. He reports that he feels like he might have a concussion secondary to his previously mentioned complaints. He denies having any severe headache symptoms. Denies vision loss. Denies numbness, tingling, motor weakness. No new head injury or trauma reported. Review of Systems: Review of Systems: Constitutional: Denies fever or chills. [] Eyes: Denies change in visual acuity. Denies vision loss. HENT: Denies nasal congestion or sore throat. [] Respiratory: Denies cough or shortness of breath. [] Cardiovascular: Denies chest pain or edema. Denies palpitations GI: Denies abdominal pain, nausea, vomiting, diarrhea : Denies dysuria. [] Musculoskeletal: Denies back pain or joint pain. [] Integument: Denies rash. [] Neurologic: Mild headache. Denies syncope, near syncope, numbness, tingling, motor weakness. Denies new head injury. Endocrine: Reports polyuria or polydipsia. [] Lymphatic: Denies swollen glands. [] Psychiatric: Chronic anxiety. Denies SI or HI. Heart Score: C/O Chest Pain: No Risk Factors: Risk Factors: DM, Current or recent (<one month) smoker, HTN, HLP, family history of CAD, obesity. Risk Scores: Score 0 - 3: 2.5% MACE over next 6 weeks - Discharge Home Score 4 - 6: 20.3% MACE over next 6 weeks - Admit for Clinical Observation Score 7 - 10: 72.7% MACE over next 6 weeks - Early Invasive Strategies Allergies: Allergies: Allergies Coded Allergies Type Severity Reaction Last Updated Verified morphine Allergy Severe blisters, sob 06/14/21 Yes Physical Exam: PE: Constitutional: Well developed, well nourished, no acute distress, non-toxic appearance. Anxious. HENT: Normocephalic, atraumatic, oropharynx is patent and clear, mucous membranes are moist. TMs are clear bilaterally. Nares are patent without rhinorrhea epistaxis Eyes: PERRL, EOMI, conjunctiva normal, no discharge. No nystagmus. Sclera anicteric Neck: Normal range of motion, no tenderness, supple, no stridor. No midline tenderness or step-offs, no deformity, full painless range of motion. No thyromegaly Cardiovascular: Irregularly irregular, heart rate in the low 100s, +2 radial and +2 posterior tibial pulses bilaterally Lungs & Thorax: Clear to auscultation bilaterally without rales, rhonchi or wheezes. No distress, no cyanosis, no stridor. Equal chest rise. Abdomen: Abdomen is soft, nondistended, nontender to palpation, no palpable pulsatile mass, no CVA tenderness, no flank abdominal ecchymoses Skin: Warm, dry, no erythema, no rash. No jaundice. Normal skin turgor Back: No tenderness, no CVA tenderness. [] Extremities: No tenderness, no cyanosis, no clubbing, ROM intact, no edema. No calf tenderness. Neurologic: Alert and oriented X 3, normal motor function, normal sensory function, no focal deficits noted. [] Psychologic: Shows, cooperative EKG: EKG: EKG is interpreted at 1228 Rhythm is irregularly irregular, AF with RVR Rate is 108 bpm [place] is left No STEMI Radiology/Procedures: Radiology/Procedures: IMAGING REPORT Signed PATIENT: MIGUEL HERNANEDZ ACCOUNT: [id number] : 1960 LOCATION: ER AGE: 60 SEX: M EXAM STATUS: REG ER ORD. PHYSICIAN: JASS TAVERAS DO REASON: head injury, weakness PROCEDURE: CT HEAD WO CONTRAST INDICATION: Reason: head injury, weakness / Spl. Instructions: / History: COMPARISON: June 14, 2021 TECHNIQUE: Axial CT images obtained through the head without intravenous contrast. One or more of the following individualized dose reduction techniques were utilized for this examination: 1. Automated exposure control; 2. Adjustment of the mA and/or kV according to patient size; 3. Use of iterative reconstruction technique. FINDINGS: No intracranial hemorrhage. No significant midline shift. Ventricles and sulci are globally prominent. Scattered foci of low attenuation within the white matter. IMPRESSION: * No acute intracranial hemorrhage. * Scattered regions of low attenuation within the white matter. Non-specific in nature but a common finding and frequently secondary to small vessel ischemic disease. Electronically signed by: Spenser Karimi MD (06/20/2021 1:55 PM) [id number] DICTATED and SIGNED BY: SPENSER KARIMI MD DATE: 06/20/21 [id number] Course & Med Decision Making: Course & Med Decision Making Pertinent Labs and Imaging studies reviewed. (See chart for details) The patient is given IV fluids, normal saline. He requested something for anxiety, he is given p.o. Vistaril and IV Ativan. He does appear to have an irregularly irregular rhythm, consistent with atrial fibrillation, not currently on medications, history of noncompliance. He appears to have atrial fibrillation with mild rapid ventricular response, though heart rate has been more persistently in the 90s, occasionally in the low 100s. 10 mg bolus of IV diltiazem is ordered. He denies chest pain, dyspnea, palpitations. He has a nonfocal neurologic exam. CT head is unremarkable for any acute pathology. Troponin serial is not indicative of acute ischemia. I did order p.o. aspirin. His glucose is 308, he is glucosuria on UA. I have discussed the findings, differential diagnosis and plan of care with him. He appears to have new onset diabetes mellitus mellitus, paroxysmal atrial fibrillation, not controlled, not medicated. I have recommended hospitalization, cardiology consultation. He is comfortable with this plan of care. He is excepted for admission by Dr. Murray. Sadi Disclaimer: Sadi Disclaimer: This electronic medical record was generated, in whole or in part, using a voice recognition dictation system. Departure Departure Impression: Primary Impression: Paroxysmal atrial fibrillation Additional Impressions: Hyperglycemia Diabetes mellitus, new onset Anxiety History of alcohol use disorder Disposition: ADMITTED INPATIENT Admitting Physician: [facility] (Dr. Murray) Condition: STABLE Referrals: NO PCP (PCP) JASS TAVERAS DO Jun 20, 2021 12:19
[2021-06-20] MEDS ORDERED: IV NORMAL SALINE 1000ML BAG 1,000 ML IV ONE ×2 (12:45→17:15)
[2021-06-20 13:32] LABS: BASO # 0.1 x10^3/uL (0.0-0.2); BASO % 1 % (0-3); EOS # 0.1 x10^3/uL (0.0-0.7); EOS % 1 % (0-3); HEMATOCRIT 39.9 % (39.0-53.0); HEMOGLOBIN 13.4 g/dL (13.0-17.5); LYMPH # 1.4 x10^3/uL (1.0-4.8); LYMPH % 18 % (24-48); MEAN CORPUSCULAR HEMOGLOBIN 31 pg (25-35); MEAN CORPUSCULAR HGB CONC 34 g/dL (31-37); MEAN CORPUSCULAR VOLUME 94 fL (79-100); MONO # 1.1 x10^3/uL (0.0-1.1); MONO % 14 % (0-9); NEUT # 5.4 x10^3/uL (1.8-7.7); NEUT % 67 % (31-73); PLATELET COUNT 388 x10^3/uL (140-400); RED BLOOD COUNT 4.25 x10^6/uL (4.30-5.70); RED CELL DISTRIBUTION WIDTH 14.9 % (11.5-14.5); WHITE BLOOD COUNT 8.1 x10^3/uL (4.0-11.0)
[2021-06-20 13:51] LABS: CALCIUM 8.9 mg/dL (8.5-10.1); CREATININE 1.1 mg/dL (0.7-1.3); GFR 68.5; POTASSIUM 4.6 mmol/L (3.5-5.1)
[2021-06-20 13:58] LABS: ALBUMIN 2.9 g/dL (3.4-5.0); ALBUMIN/GLOBULIN RATIO 0.6 (1.0-1.7); MAGNESIUM 1.6 mg/dL (1.8-2.4); PHOSPHORUS 4.6 mg/dL (2.6-4.7); TOTAL BILIRUBIN 0.3 mg/dL (0.2-1.0); TOTAL PROTEIN 7.8 g/dL (6.4-8.2)
--- NOTE | 2021-06-20 13:58 | RAD ---
INDICATION: Reason: head injury, weakness / Spl. Instructions: / History: COMPARISON: June 14, 2021 TECHNIQUE: Axial CT images obtained through the head without intravenous contrast. One or more of the following individualized dose reduction techniques were utilized for this examinat ion: 1. Automated exposure control; 2. Adjustment of the mA and/or kV according to patient size; 3 . Use of iterative reconstruction technique. FINDINGS: No intracranial hemorrhage. No significant midline shift. Ventricles and sulci are globally prominent. Scattered foci of low attenuation within the white matter. IMPRESSION: * No acute intracranial hemorrhage. * Scattered regions of low attenuation within the white matter. Non-specific in nature but a common finding and frequently secondary to small vessel ischemic disease. Electronically signed by: Bon Ball MD (06/20/2021 1:55 PM) [id number]
--- NOTE | 2021-06-20 14:34 | EKG ---
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
[2021-06-20 14:36] LABS: BILIRUBIN,URINE NEGATIVE (NEG); COLOR,URINE YELLOW; NITRITE,URINE NEGATIVE (NEG); PROTEIN,URINE NEGATIVE (NEG-TRACE); UROBILINOGEN,URINE 0.2 mg/dL (0.2 mg/dL)
[2021-06-20 14:40] LABS: BARBITURATES NEG (NEG); BENZODIAZEPINES POS (NEG); CANNABINOIDS NEG (NEG); COCAINE NEG (NEG); METHADONE NEG (NEG); OPIATES NEG (NEG); PHENCYCLIDINE NEG (NEG)
[2021-06-20 14:44] LABS: CLARITY,URINE CLEAR
[2021-06-20 14:45] LABS: AMPHETAMINE/METHAMPHETAMINE NEG (NEG); BACTERIA,URINE 0 /HPF (0-FEW); RBC,URINE 0 /HPF (0-2); WBC,URINE 0 /HPF (0-4)
[2021-06-20] MEDS ORDERED: hydrOXYzine 25 MG TABLET PO ONE (14:45)
[2021-06-20] MEDS ORDERED: ASPIRIN ENTERIC COATED 325 MG TABLET.DR. PO ONE (16:00)
[2021-06-20] MEDS ORDERED: DEXTROSE 50% 25 GM / 50ML DISP.SYRIN. IV PRN (16:45)
[2021-06-20] MEDS ORDERED: ONDANSETRON PF 4 MG/2 ML VIAL. IVP PRN (17:15)
[2021-06-20] MEDS: glyBURIDE 1.25 MG TABLET PO SCH (17:22)
--- NOTE | 2021-06-20 19:14 | HP ---
DATE OF SERVICE: 06/20/2021 ADMIT DATE: 06/20/2021 CHIEF COMPLAINT: Weakness, chest discomfort. HISTORY OF PRESENT ILLNESS: The patient is a pleasant 60-year-old male well known to my service. 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 He has also had a pericardial window in the past. Today when he presented to the ER with chest pain, we also checked his labs. He seems to have new onset diabetes. His glucose is 308. Interestingly, he states he checks his glucose at work even though he denies ever had a history of diabetes. States he takes a lot of herbs. I discussed the case with ER physician. We are going to admit the patient. PAST MEDICAL HISTORY: Hodgkin's lymphoma x 2, and he has had radiation therapy and chemotherapy, pericardial window for radiation pericarditis, history of radiation therapy, possible noncompliance, hypertension, anxiety, GERD and alcoholism, although he quit 1 month ago. ALLERGIES: MORPHINE. FAMILY HISTORY: Diabetes. SOCIAL HISTORY: Does not drink, smoke or take drugs. MEDICATIONS: He is on clonidine, Naprosyn, lorazepam, and famotidine. REVIEW OF SYSTEMS: GENERAL: No history of weight change, weakness or fevers. SKIN: No bruising, hair changes or rashes. EYES: No blurred, double or loss of vision. NOSE AND THROAT: No history of nosebleeds, hoarseness or sore throat. HEART: No history of palpitations, chest pain or shortness of breath on exertion. LUNGS: Denies cough, hemoptysis, wheezing or shortness of breath. GASTROINTESTINAL: Denies changes in appetite, nausea, vomiting, diarrhea or constipation. GENITOURINARY: No history of frequency, urgency, hesitancy or nocturia. NEUROLOGIC: Denies history of numbness, tingling, tremor or weakness. PSYCHIATRIC: No history of panic, anxiety or depression. ENDOCRINE: No history of heat or cold intolerance, polyuria or polydipsia. EXTREMITIES: Denies muscle weakness, joint pain, pain on walking or stiffness. PHYSICAL EXAMINATION: VITALS: Within normal limits and are stable. GENERAL: No apparent distress. Alert and oriented. HEENT: Normal cephalic atraumatic, external auditory canals are patent EYES: Extraocular muscles are intact, pupils are equally round and reactive to light and accommodation MUSCULOSKELETAL: Well developed, well nourished, good range of motion ENDOCRINE: No thyromegaly was palpated LYMPHATICS: No cervical chain or axillary nodes were noted HEMATOPOIETIC: No bruising NECK: Supple, no JVD, no thyromegaly was noted. LUNGS: Clear to auscultation in all lung silva without rhonchi or wheezing. HEART: RRR, S1, S2 present. Peripheral pulses intact, no obvious murmurs were noted. ABDOMEN: Soft, nontender. Positive bowel sounds no organomegaly, normal bowel sounds. EXTREMITIES: Without any cyanosis, clubbing, or edema. Pedal pulses intact, Homans sign is negative. NEUROLOGIC: Normal speech, normal tone. A and O x 3, moves all extremities, no obvious focal deficits. PSYCHIATRIC: Normal affect, normal mood. Stable. SKIN: No ulcerations or rashes, good skin turgor, no jaundice. VASCULAR: Good capillary refill, neurovascular bundle appears to be intact. LABORATORY DATA: Electrolytes are normal except for glucose of 308. Troponin is 17. Hematology is normal. Drug screen negative except for benzos, which he has a prescription for. Urinalysis negative. CT of the head negative. Other than some small vessel disease. ASSESSMENT AND PLAN: New onset diabetes and chest discomfort, previous history of alcohol issues, although he quit 1 month ago. The patient will be admitted. We will keep him on a cardiac monitor technician. Consult Cardiology. Frequent Accu-Cheks with sliding scale insulin and we will eventually change him over to scheduled insulin and/or glipizide. Home meds. Deep venous thrombosis prophylaxis. Full code. Diabetic education, ADA diet. Trend labs. IV fluids, daily aspirin. MICHAEL/TAMY/AMANDA DR: MICHAEL/lisa TID: [id number]
--- NOTE | 2021-06-20 19:27 | NUR ---
The patient, MIGUEL HERNANDEZ, 60 y/o, M admitted by JACK BRUNNER III, DO, was given written information regarding hospital policies, unit procedures and contact persons, valuables were checked and documented. call light in place, assessment and history complete. will cont to monitor pt safety and status. pmrn Valuables were checked and
[2021-06-20] MEDS ORDERED: MAGNESIUM SULFATE 2GM 50 ML IV ONE (21:00)
[2021-06-20 22:14] VITALS: BP 113/63
[2021-06-21 02:20] VITALS: BP 102/56
[2021-06-21 07:00] VITALS: BP 139/73
[2021-06-21] MEDS: FAMOTIDINE 20 MG TABLET. PO SCH ×2 (08:01→20:41)
[2021-06-21] MEDS: glyBURIDE 1.25 MG TABLET PO SCH (08:01)
[2021-06-21] MEDS ORDERED: cloNIDine HCL 0.2 MG TABLET PO SCH (09:00)
--- NOTE | 2021-06-21 09:08 | PDOC2 ---
ANISH CHOPRA HEEL EDGE INKER MACHINE 06/21/21 0908: CARDIAC CONSULT DATE OF CONSULT Date of Consult DATE: 06/21/21 TIME: 08:36 REASON FOR CONSULT Reason for Consult: Chest pain, intermittent afib REFERRING PHYSICIAN Referring Physician: Trevor SOURCE Source: Chart review HISTORY OF PRESENT ILLNESS HISTORY OF PRESENT ILLNESS This is a 60 yo male admitted for complains of difficulty walking and weakness. He has not been feeling with intermittent dizzy spells. Hx of PAFIB with past ablation. Reports that Friday he slipped and fell with no apparent injury. He has been having some episodes of vertigo, no lost of consciousness, seizure symptoms. Also has been feeling weak and unsteady. He has intermittent chest pain dull achy but not exertional and does not last long and no associated n/v nor any SOA. Reported chest injury in the past. No fever or chills. He is unvaccinated for covid-19 and has not been having any viral symptoms. His episode of ataxia lasted for about 4 days this has resolved and no further symptoms. PAST MEDICAL HISTORY Past Medical History Cardiovascular: AFIB, HTN, Valve insufficiency Pulmonary: Pneumonia, Other (pneumothorax) GI: GERD, Other (esophageal stricture) Heme/Onc: Anemia NOS, Cancer PAST SURGICAL HISTORY Past Surgical History: Appendectomy, Other (pancreatic cyst removal; pericardial stripping, splenectomy) FAMILY HISTORY Family History noncontributory Family History: Hypertension SOCIAL HISTORY ALCOHOL: other (hx of heavy ETOH use) CURRENT MEDICATIONS CURRENT MEDICATIONS Current Medications Medications (Trade) Dose Ordered Sig/Fernanda Route PRN Reason Start Time Stop Time Status Last Admin Dose Admin Sodium Chloride 1,000 ml @ 1,000 mls/hr 1X ONCE IV 06/20/21 12:45 06/20/21 13:44 DC 06/20/21 13:28 Hydroxyzine HCl (Atarax) 25 mg 1X ONCE PO 06/20/21 14:45 06/20/21 14:46 DC 06/20/21 14:29 Lorazepam (Ativan Inj) 1 mg 1X ONCE IVP 06/20/21 16:00 06/20/21 16:01 DC 06/20/21 16:37 Aspirin (Ecotrin) 325 mg 1X ONCE PO 06/20/21 16:00 06/20/21 16:01 DC 06/20/21 16:00 Glyburide (Diabeta) 1.25 mg BIDWMEALS PO 06/20/21 17:00 06/21/21 08:01 Diltiazem HCl (Cardizem Iv Push) 10 mg 1X ONCE IVP 06/20/21 17:00 06/20/21 17:01 DC 06/20/21 17:22 Sodium Chloride 1,000 ml @ 75 mls/hr 1X ONCE IV 06/20/21 17:15 06/21/21 06:34 DC 06/20/21 17:20 Magnesium Sulfate 50 ml @ 25 mls/hr 1X ONCE IV 06/20/21 21:00 06/20/21 22:59 DC 06/20/21 21:43 Clonidine HCl (Catapres) 0.2 mg TID PO 06/21/21 09:00 06/21/21 08:05 Famotidine (Pepcid) 20 mg BID PO 06/21/21 09:00 06/21/21 08:01 Lorazepam (Ativan) 1 mg BID PO 06/21/21 09:00 06/21/21 08:01 ALLERGIES ALLERGIES: Coded Allergies: morphine (Verified Allergy, Severe, ANAPHYLAXIS, BLISTERS, SOB, 06/21/21) ROS Review of System 14 point ROS evaluated with pertinent positives noted per HPI PHYSICAL EXAM General: Alert, Oriented X3, Cooperative, No acute distress HEENT: Atraumatic, Mucous membr. moist/pink Lungs: Clear to auscultation, Normal air movement Heart: Regular rate (SR), Normal S1, Normal S2, Other (3/6 systolic murmur to LLS border) Abdomen: Soft, No tenderness Extremities: No cyanosis, No edema Skin: No breakdown, No significant lesion Neuro: Normal speech, Sensation intact Psych/Mental Status: Mental status NL, Mood NL MUSCULOSKELETAL: Osteoarthritic changes both hands VITALS/I&O VITALS/I&O: Vital Signs Date Time Temp Pulse Resp B/P (MAP) Pulse Ox O2 Delivery O2 Flow Rate FiO2 06/21/21 08:05 85 139/73 06/21/21 07:00 96.0 20 95 Room Air 96.0 I & O 06/20/21 06/20/21 06/21/21 15:00 23:00 07:00 Intake Total 800 ml 0 ml Output Total 800 ml Balance 800 ml -800 ml LABS Lab: Laboratory Tests Test 06/20/21 13:21 06/20/21 14:17 06/20/21 15:08 06/20/21 17:27 White Blood Count 8.1 x10^3/uL (4.0-11.0) Red Blood Count 4.25 x10^6/uL (4.30-5.70) L Hemoglobin 13.4 g/dL (13.0-17.5) Hematocrit 39.9 % (39.0-53.0) Mean Corpuscular Volume 94 fL (79-100) Mean Corpuscular Hemoglobin 31 pg (25-35) Mean Corpuscular Hemoglobin Concent 34 g/dL (31-37) Red Cell Distribution Width 14.9 % (11.5-14.5) H Platelet Count 388 x10^3/uL (140-400) Neutrophils (%) (Auto) 67 % (31-73) Lymphocytes (%) (Auto) 18 % (24-48) L Monocytes (%) (Auto) 14 % (0-9) H Eosinophils (%) (Auto) 1 % (0-3) Basophils (%) (Auto) 1 % (0-3) Neutrophils # (Auto) 5.4 x10^3/uL (1.8-7.7) Lymphocytes # (Auto) 1.4 x10^3/uL (1.0-4.8) Monocytes # (Auto) 1.1 x10^3/uL (0.0-1.1) Eosinophils # (Auto) 0.1 x10^3/uL (0.0-0.7) Basophils # (Auto) 0.1 x10^3/uL (0.0-0.2) Sodium Level 139 mmol/L (136-145) Potassium Level 4.6 mmol/L (3.5-5.1) Chloride Level 100 mmol/L (98-107) Carbon Dioxide Level 30 mmol/L (21-32) Anion Gap 9 (6-14) Blood Urea Nitrogen 10 mg/dL (8-26) Creatinine 1.1 mg/dL (0.7-1.3) Estimated GFR (Cockcroft-Gault) 68.5 BUN/Creatinine Ratio 9 (6-20) Glucose Level 308 mg/dL (70-99) H Calcium Level 8.9 mg/dL (8.5-10.1) Phosphorus Level 4.6 mg/dL (2.6-4.7) Magnesium Level 1.6 mg/dL (1.8-2.4) L Total Bilirubin 0.3 mg/dL (0.2-1.0) Aspartate Amino Transferase (AST) 42 U/L (15-37) H Alanine Aminotransferase (ALT) 42 U/L (16-63) Alkaline Phosphatase 218 U/L (46-116) H Creatine Kinase 69 U/L (39-308) Troponin I High Sensitivity 17 ng/L (4-75) 17 ng/L (4-75) Total Protein 7.8 g/dL (6.4-8.2) Albumin 2.9 g/dL (3.4-5.0) L Albumin/Globulin Ratio 0.6 (1.0-1.7) L Ethyl Alcohol Level < 10 mg/dL (0-10) Urine Collection Type Unknown Urine Color Yellow Urine Clarity Clear Urine pH 6.0 (<5.0-8.0) Urine Specific [place] 1.010 (1.000-1.030) Urine Protein Negative mg/dL (NEG-TRACE) Urine Glucose (UA) >=1000 mg/dL (NEG) Urine Ketones (Stick) Negative mg/dL (NEG) Urine Blood Negative (NEG) Urine Nitrite Negative (NEG) Urine Bilirubin Negative (NEG) Urine Urobilinogen Dipstick 0.2 mg/dL (0.2 mg/dL) Urine Leukocyte Esterase Negative (NEG) Urine RBC 0 /HPF (0-2) Urine WBC 0 /HPF (0-4) Urine Bacteria 0 /HPF (0-FEW) Urine Opiates Screen Neg (NEG) Urine Methadone Screen Neg (NEG) Urine Barbiturates Neg (NEG) Urine Phencyclidine Screen Neg (NEG) Urine Amphetamine/Methamphetamine Neg (NEG) Urine Benzodiazepines Screen Pos (NEG) Urine Cocaine Screen Neg (NEG) Urine Cannabinoids Screen Neg (NEG) Urine Ethyl Alcohol Neg (NEG) Glucose (Fingerstick) 136 mg/dL (70-99) H Test 06/20/21 20:56 06/21/21 08:10 Glucose (Fingerstick) 213 mg/dL (70-99) H 147 mg/dL (70-99) H Laboratory Tests 06/20/21 13:21 Laboratory Tests 06/20/21 13:21 ASSESSMENT/PLAN ASSESSMENT/PLAN 1. Arrhythmia: EKG with sinus tach, PACs, no strips relating to AFIB 2. Presyncope/weakness/ataxia: potentially from uncontrolled DM and vertigo 3. HTN: controlled 4. DM2: per PCP. pt denies knowing that he has DM 5. PAFIB: ablation 4 yrs ago 6. Hx of chronic ETOH abuse: just finished ETOH detox about 2 weeks ago 7. Hypomagnesemia: replaced 8. Hx of noncompliance: has not seen a PCP nor flight data technician for at least 3 yrs and has been getting his med refills through ER visit 9. Valvular insufficiency 10. Atypical CP: possibly MSK 11. Nontraumatic mechanical fall: last Friday Recommendations 1. TSH, FLP, TTE 2. Secondary prevention measures. ASA. Statin per Lipid level 3. Last stress test at least 3 yrs ago. Consider for future outpt stress test, Follow up with Dr. Desir from cardiology. Discussed compliance 4. If TTE is unremarkable for significnat changes then may DC per cardiac perspective and f/u with cardiology as noted above 5. Reduce clonidine and start on toprol MARINA PACE MD 06/22/21 1101: CARDIAC CONSULT ASSESSMENT/PLAN ASSESSMENT/PLAN Patient seen and examined. Agree with PRIMARY MONTESSORI TEACHER's assessment and plan as stated above. ANISH CHOPRA APRN Jun 21, 2021 09:08 MARINA PACE MD Jun 22, 2021 11:01
[2021-06-21] MEDS: ASPIRIN ENTERIC COATED 81 MG TABLET.DR. PO SCH (10:34)
[2021-06-21 11:00] VITALS: BP 106/67
--- NOTE | 2021-06-21 11:01 | NUR ---
SS following for discharge planning. SS reviewed pt chart and discussed with pt RN. Pt is from home and is currently on room air. Cardiology consulted. ECHO ordered. PT/OT ordered. SS will continue to follow for discharge planning.
[2021-06-21] MEDS: INSULIN LISPRO 300 UNITS/3 ML VIAL. SQ SCH ×2 (12:00→17:00)
[2021-06-21] MEDS ORDERED: ATOR40TA59 PO (12:45)
[2021-06-21] MEDS ORDERED: METO-239 PO (12:45)
[2021-06-21] MEDS ORDERED: ASPI-886 PO (12:45)
[2021-06-21] MEDS ORDERED: METF10007 PO (12:45)
--- NOTE | 2021-06-21 12:48 | DISCH ---
DISCHARGE INSTRUCTIONS Condition on Discharge Condition on Discharge: Stable Activity After Discharge Activity Instructions for Disc: Activity as tolerated Exercise Instruction after Dis: Walk 30 min, 5 x per week Driving Instructions after Dis: Do not drive Weight Bearing Status after Di: No restrictions Diet after Discharge Diet after Discharge: Cardiac, Low Fat, Diabetic No Calorie Level Diet Texture: Regular Liquid Texture: Thin Liquid Swallowing Supervision: None needed Checks after Discharge Checks after discharge: Check blood press - daily Contacting the DR. after DC Call your doctor for: Concerns you may have Follow-Up Follow up with: PCP within 2 weeks after discharge to control your diabetes Follow Up With: Cardiology as needed as scheduled Treatment/Equipment after DC Adaptive Equipment Issued: None MYNOR BASILIO MD Jun 21, 2021 12:48
--- NOTE | 2021-06-21 12:51 | PDOC ---
[employer] PROGRESS NOTE Date of Service DOS: DATE: 06/21/21 TIME: 12:49 Chief Complaint Chief Complaint Near syncope likely related to uncontrolled diabetes New onset diabetes History of paroxysmal atrial fibrillation with ablation 4 years ago Hx of chronic ETOH abuse: just finished ETOH detox about 2 weeks ago History of medical noncompliance Atypical CP likely due to musculoskeletal etiology Pending hemoglobin A1c Pending TTE results Pending PT OT evaluation Possible discharge in the next 24 to 48 hours History of Present Illness History of Present Illness 60-year-old male well known to my service. 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 He has also had a pericardial window in the past. Today when he presented to the ER with chest pain, we also checked his labs. He seems to have new onset diabetes. His glucose is 308. Interestingly, he states he checks his glucose at work even though he denies ever had a history of diabetes. States he takes a lot of herbs. Admitted for further management 06/21/2021 No acute events overnight. Patient patient seen examined bedside. Chest pain- free at this time. Echo results pending. Glucose are better controlled. Patient will need to continue on Metformin and atorvastatin. Vitals/I&O Vitals/I&O: Vital Signs Date Time Temp Pulse Resp B/P (MAP) Pulse Ox O2 Delivery O2 Flow Rate FiO2 06/21/21 11:00 97.3 75 20 106/67 (80) 96 Room Air 97.3 I & O 06/20/21 06/20/21 06/21/21 15:00 23:00 07:00 Intake Total 800 ml 0 ml Output Total 800 ml Balance 800 ml -800 ml Physical Exam General: Alert, Oriented X3, Cooperative, No acute distress Heart: Regular rate (SR), Normal S1, Normal S2, Other (3/6 systolic murmur to LLS border) Lungs: Clear Abdomen: Soft, No tenderness Extremities: No cyanosis, No edema Skin: No breakdown, No significant lesion Labs Labs: Laboratory Tests Test 06/20/21 13:21 06/20/21 14:17 06/20/21 15:08 06/20/21 17:27 White Blood Count 8.1 x10^3/uL (4.0-11.0) Red Blood Count 4.25 x10^6/uL (4.30-5.70) Hemoglobin 13.4 g/dL (13.0-17.5) Hematocrit 39.9 % (39.0-53.0) Mean Corpuscular Volume 94 fL (79-100) Mean Corpuscular Hemoglobin 31 pg (25-35) Mean Corpuscular Hemoglobin Concent 34 g/dL (31-37) Red Cell Distribution Width 14.9 % (11.5-14.5) Platelet Count 388 x10^3/uL (140-400) Neutrophils (%) (Auto) 67 % (31-73) Lymphocytes (%) (Auto) 18 % (24-48) Monocytes (%) (Auto) 14 % (0-9) Eosinophils (%) (Auto) 1 % (0-3) Basophils (%) (Auto) 1 % (0-3) Neutrophils # (Auto) 5.4 x10^3/uL (1.8-7.7) Lymphocytes # (Auto) 1.4 x10^3/uL (1.0-4.8) Monocytes # (Auto) 1.1 x10^3/uL (0.0-1.1) Eosinophils # (Auto) 0.1 x10^3/uL (0.0-0.7) Basophils # (Auto) 0.1 x10^3/uL (0.0-0.2) Sodium Level 139 mmol/L (136-145) Potassium Level 4.6 mmol/L (3.5-5.1) Chloride Level 100 mmol/L (98-107) Carbon Dioxide Level 30 mmol/L (21-32) Anion Gap 9 (6-14) Blood Urea Nitrogen 10 mg/dL (8-26) Creatinine 1.1 mg/dL (0.7-1.3) Estimated GFR (Cockcroft-Gault) 68.5 BUN/Creatinine Ratio 9 (6-20) Glucose Level 308 mg/dL (70-99) Calcium Level 8.9 mg/dL (8.5-10.1) Phosphorus Level 4.6 mg/dL (2.6-4.7) Magnesium Level 1.6 mg/dL (1.8-2.4) Total Bilirubin 0.3 mg/dL (0.2-1.0) Aspartate Amino Transf (AST/SGOT) 42 U/L (15-37) Alanine Aminotransferase (ALT/SGPT) 42 U/L (16-63) Alkaline Phosphatase 218 U/L (46-116) Creatine Kinase 69 U/L (39-308) Troponin I High Sensitivity 17 ng/L (4-75) 17 ng/L (4-75) Total Protein 7.8 g/dL (6.4-8.2) Albumin 2.9 g/dL (3.4-5.0) Albumin/Globulin Ratio 0.6 (1.0-1.7) Ethyl Alcohol Level < 10 mg/dL (0-10) Urine Collection Type Unknown Urine Color Yellow Urine Clarity Clear Urine pH 6.0 (<5.0-8.0) Urine Specific [place] 1.010 (1.000-1.030) Urine Protein Negative mg/dL (NEG-TRACE) Urine Glucose (UA) >=1000 mg/dL (NEG) Urine Ketones (Stick) Negative mg/dL (NEG) Urine Blood Negative (NEG) Urine Nitrite Negative (NEG) Urine Bilirubin Negative (NEG) Urine Urobilinogen Dipstick 0.2 mg/dL (0.2 mg/dL) Urine Leukocyte Esterase Negative (NEG) Urine RBC 0 /HPF (0-2) Urine WBC 0 /HPF (0-4) Urine Bacteria 0 /HPF (0-FEW) Urine Opiates Screen Neg (NEG) Urine Methadone Screen Neg (NEG) Urine Barbiturates Neg (NEG) Urine Phencyclidine Screen Neg (NEG) Urine Amphetamine/Methamphetamine Neg (NEG) Urine Benzodiazepines Screen Pos (NEG) Urine Cocaine Screen Neg (NEG) Urine Cannabinoids Screen Neg (NEG) Urine Ethyl Alcohol Neg (NEG) Glucose (Fingerstick) 136 mg/dL (70-99) Test 06/20/21 20:56 06/21/21 08:10 06/21/21 10:15 06/21/21 11:27 Glucose (Fingerstick) 213 mg/dL (70-99) 147 mg/dL (70-99) 144 mg/dL (70-99) Triglycerides Level 163 mg/dL (0-150) Cholesterol Level 259 mg/dL (0-200) LDL Cholesterol, Calculated 174 mg/dL (0-100) VLDL Cholesterol, Calculated 33 mg/dL (0-40) Non-HDL Cholesterol Calculated 207 mg/dL (0-129) HDL Cholesterol 52 mg/dL (40-60) Cholesterol/HDL Ratio 5.0 Thyroid Stimulating Hormone (TSH) 4.407 uIU/mL (0.358-3.74) Assessment and Plan Assessmemt and Plan Problems Medical Problems: (1) Anxiety Status: Acute (2) Diabetes mellitus, new onset Status: Acute (3) History of alcohol use disorder Status: Acute (4) Hyperglycemia Status: Acute (5) Paroxysmal atrial fibrillation Status: Acute Comment Review of Relevant I have reviewed the following items carlos (where applicable) has been applied. Medications: Current Medications Medications (Trade) Dose Ordered Sig/Fernanda Route PRN Reason Start Time Stop Time Status Last Admin Dose Admin Hydroxyzine HCl (Atarax) 25 mg 1X ONCE PO 06/20/21 14:45 06/20/21 14:46 DC 06/20/21 14:29 Lorazepam (Ativan Inj) 1 mg 1X ONCE IVP 06/20/21 16:00 06/20/21 16:01 DC 06/20/21 16:37 Aspirin (Ecotrin) 325 mg 1X ONCE PO 06/20/21 16:00 06/20/21 16:01 DC 06/20/21 16:00 Glyburide (Diabeta) 1.25 mg BIDWMEALS PO 06/20/21 17:00 06/21/21 12:46 DC 06/21/21 08:01 Diltiazem HCl (Cardizem Iv Push) 10 mg 1X ONCE IVP 06/20/21 17:00 06/20/21 17:01 DC 06/20/21 17:22 Sodium Chloride 1,000 ml @ 75 mls/hr 1X ONCE IV 06/20/21 17:15 06/21/21 06:34 DC 06/20/21 17:20 Magnesium Sulfate 50 ml @ 25 mls/hr 1X ONCE IV 06/20/21 21:00 06/20/21 22:59 DC 06/20/21 21:43 Clonidine HCl (Catapres) 0.2 mg TID PO 06/21/21 09:00 06/21/21 12:11 DC 06/21/21 08:05 Famotidine (Pepcid) 20 mg BID PO 06/21/21 09:00 06/21/21 08:01 Lorazepam (Ativan) 1 mg BID PO 06/21/21 09:00 06/21/21 08:01 Aspirin (Ecotrin) 81 mg DAILYWBKFT PO 06/21/21 09:30 06/21/21 10:34 Justifications for Admission Other Justification MYNOR BASILIO MD Jun 21, 2021 12:51
[2021-06-21 15:00] VITALS: BP 140/70
--- NOTE | 2021-06-21 15:26 | CARD ---
MR#: [id number] Date of Study: 06/21/2021 Ordering Physician: ANISH CHOPRA, Referring Physician: ANISH CHOPRA, Tech: Hermila Alfonsomarestephie, [facility] APPROVED REPORT EXAM: Two-dimensional and M-mode echocardiogram with Doppler and color Doppler. Other Information Quality : AverageHR: 74bpm INDICATION Dyspnea Atrial Fibrillation Chest Pain RISK FACTORS Diabetes 2D DIMENSIONS Left Atrium(2D)3.6 (1.6-4.0cm)IVSd1.1 (0.7-1.1cm) Aortic Root(2D)3.4 (2.0-3.7cm)LVDd4.6 (3.9-5.9cm) LVOT Diameter2.0 (1.8-2.4cm)PWd1.0 (0.7-1.1cm) LVDs2.7 (2.5-4.0cm)FS (%) 41.2 % SV69.5 mlLVEF(%)72.1 (>50%) Aortic Valve AoV Peak Wenceslao.153.4cm/sAoV VTI34.0cm AO Peak GR.9.4mmHgLVOT VTI 19.05cm AO Mean GR.6mmHgAI P 1/2 [id number] Mitral Valve MV E Pimaaqxs510.4cm/sMV E Peak Gr.99mmHg MV DECEL [id number] A Umdiwlge96.6cm/s MV E Mean Gr.2mmHgE/A Ratio3.4 TDI Lateral E' P. V8.12cm/sMedial E' P. V3.54cm/s E/Lateral E'14.6E/Medial E'33.4 Tricuspid Valve TR P. [id number]/sRAP [id number] TR Peak Gr.[id number] LEFT VENTRICLE The left ventricle is normal size. There is borderline to mild concentric left ventricular hypertroph y. The left ventricular systolic function is normal and the ejection fraction is within normal range. The Ejection Fraction is 50-55%. Septal motion consistent with prior CABG. Otherwise, there is gross ly normal wall motion. Transmitral Doppler flow pattern is Grade II-pseudonormal filling dynamics. RIGHT VENTRICLE The right ventricle is mildly to moderately dilated. There is normal right ventricular wall thickness . The right ventricular systolic function is normal. ATRIA The left atrium size is normal. The right atrium is mildly dilated. The interatrial septum is intact with no evidence for an atrial septal defect or patent foramen ovale as noted on 2-D or Doppler imagi ng. AORTIC VALVE The aortic valve is calcified with restricted leaflet motion. Doppler and Color Flow revealed trace a ortic regurgitation. There is no significant aortic valvular stenosis. Calculated aortic valve area i s 1.81 cm2 with maximum pressure gradient of 10 mmHg and mean pressure gradient of 6 mmHg. MITRAL VALVE The mitral valve is normal in structure and function. There is no evidence of mitral valve prolapse. There is no mitral valve stenosis. Doppler and Color-flow revealed trace mitral regurgitation. TRICUSPID VALVE The tricuspid valve is normal in structure and function. Doppler and Color Flow revealed mild to mode rate tricuspid regurgitation with an estimated PAP of 36 mmHg. There is no tricuspid valve stenosis. PULMONIC VALVE Doppler and Color Flow revealed mild to moderate pulmonic valvular regurgitation. There is no pulmoni c valvular stenosis. GREAT VESSELS The aortic root is normal in size. The IVC is normal in size and collapses >50% with inspiration. PERICARDIAL EFFUSION There is no evidence of significant pericardial effusion. Critical Notification Critical Value: No <Conclusion> The left ventricular systolic function is normal and the ejection fraction is within normal range. Th e Ejection Fraction is 50-55%. Septal motion consistent with prior CABG. Otherwise, there is grossly normal wall motion. The right ventricle is mildly to moderately dilated. Doppler and Color Flow revealed mild to moderate tricuspid regurgitation with an estimated PAP of 36 mmHg. Doppler and Color Flow revealed mild to moderate pulmonic valvular regurgitation. Signed by : Claude Felix, Electronically Approved : 06/21/2021 15:26:30
[2021-06-21] MEDS ORDERED: LORazepam 0.5 MG TABLET PO PRN (15:30)
[2021-06-21] MEDS: metFORMIN 500 MG TABLET PO SCH (15:56)
[2021-06-21] MEDS: cloNIDine HCL 0.2 MG TABLET PO SCH ×2 (15:56→20:39)
[2021-06-21] MEDS: METOPROLOL SUCC 24HR ER 25 MG TAB.ER.24H. PO SCH (15:57)
[2021-06-21 19:10] VITALS: BP 102/53
[2021-06-21] MEDS ORDERED: ATORVASTATIN CALCIUM 40 MG TABLET. PO SCH (21:00)
[2021-06-21 22:21] VITALS: BP 113/53
[2021-06-22 02:09] LABS: HEMOGLOBIN A1C 7.7 % (4.8-5.6)
[2021-06-22 02:21] VITALS: BP 114/65
[2021-06-22 07:00] VITALS: BP 131/76
[2021-06-22] MEDS: INSULIN LISPRO 300 UNITS/3 ML VIAL. SQ SCH ×2 (08:00→12:00)
[2021-06-22] MEDS: ASPIRIN ENTERIC COATED 81 MG TABLET.DR. PO SCH (08:52)
[2021-06-22] MEDS: FAMOTIDINE 20 MG TABLET. PO SCH (08:52)
[2021-06-22] MEDS: cloNIDine HCL 0.2 MG TABLET PO SCH ×2 (08:55→14:00)
[2021-06-22] MEDS: METOPROLOL SUCC 24HR ER 25 MG TAB.ER.24H. PO SCH (08:55)
--- NOTE | 2021-06-22 10:47 | NUR ---
SS following up with discharge planning. SS reviewed pt chart and discussed with pt RN. Pt is currently on room air. PT/OT recommended home independent. Discharge order on the chart for home with self care. Pt stating that family will assist with transportation to home.
[2021-06-22 11:00] VITALS: BP 94/49
--- NOTE | 2021-06-22 11:16 | PDOC ---
ANISH CHOPRA SENIOR INFORMATION SECURITY ENGINEER 06/22/21 1116: CARDIO Progress Notes Date and Time Date of Service 06/22/2021 Time of Evaluation 1100 Subjective Subjective: No Chest Pain, No shortness of breath, No Palpitations Vitals Vitals Vital Signs Date Time Temp Pulse Resp B/P (MAP) Pulse Ox O2 Delivery O2 Flow Rate FiO2 06/22/21 08:55 79 132/76 06/22/21 07:00 96.5 18 98 Room Air 96.5 Weight Weight [ ] Input and Output Intake and Output Intake and Output 06/22/21 07:00 Intake Total 1300 ml Output Total 1550 ml Balance -250 ml Intake Oral 1300 ml Output Urine Total 1550 ml Laboratory Labs Laboratory Tests Test 06/21/21 11:27 06/21/21 16:57 06/21/21 20:37 06/22/21 08:32 Glucose (Fingerstick) 144 mg/dL (70-99) 136 mg/dL (70-99) 142 mg/dL (70-99) 129 mg/dL (70-99) Test 06/22/21 11:08 Glucose (Fingerstick) 165 mg/dL (70-99) Physical Exam HEENT: Neck Supple W Full Motion Chest: Symmetric LUNGS: Clear to Auscultation Heart: S1S2, RRR (SR) Abdomen: Soft N/T Extremities: No Calf Tenderness Neurology: alert, oriented, follow commands Assessment Assessment 1. Arrhythmia: EKG with sinus tach, PACs, no strips relating to AFIB 2. Presyncope/weakness/ataxia: potentially from uncontrolled DM and vertigo. none further 3. HTN: controlled 4. DM2: per PCP. pt denies knowing that he has DM. A1C 7.7 5. PAFIB: ablation 4 yrs ago. Maintaining SR 6. Hx of chronic ETOH abuse: just finished ETOH detox about 2 weeks ago 7. Hypomagnesemia: replaced 8. Hx of noncompliance: has not seen a PCP nor admitting officer for at least 3 yrs and has been getting his med refills through ER visit 9. Valvular insufficiency: EF and LV WM nml with addition below. The right ventricle is mildly to moderately dilated. Doppler and Color Flow revealed mild to moderate tricuspid regurgitation with an estimated PAP of 36 mmHg. Doppler and Color Flow revealed mild to moderate pulmonic valvular regurgitation. 10. Atypical CP: possibly MSK 11. Nontraumatic mechanical fall: last Friday Recommendations 1. Secondary prevention measures. ASA 2. Last stress test at least 3 yrs ago. Consider for future outpt stress test, Follow up with Dr. Desir from cardiology. Discussed compliance 3. May DC per cardiac perspective and f/u with cardiology as noted above 4. Reduce clonidine and start on toprol Justicifation of Admission Dx: Justifications for Admission: Justification of Admission Dx: Yes Angina: Symp at [facility] MARINA PACE MD 06/22/21 1438: CARDIO Progress Notes Assessment Assessment Patient seen and examined. Agree with SLD EDUCATIONAL AIDE's assessment and plan. PAF s/p ablation, presently sinus rhythm Chest pain with atypical features and most probably musculoskeletal 2D echo showed normal LV systolic function with mild to moderate tricuspid and pulmonary regurgitations Continue current medical regimen ANISH CHOPRA APRN Jun 22, 2021 11:16 MARINA PACE MD Jun 22, 2021 14:38
[2021-06-22] MEDS: metFORMIN 500 MG TABLET PO SCH (11:22)
[2021-06-22] MEDS ORDERED: CLON1PAT TD (12:45)
--- NOTE | 2021-06-22 14:26 | NUR ---
Discharge Note: MIGUEL HERNANDEZ Discharge instructions and discharge home medications reviewed with Patient and a copy given. All questions have been answered and understanding verbalized. Pt verbalized concern for metformin script. Pt states he will do research and ask his primary provider upon finding one if it is a good medication to be on.
--- NOTE | 2021-06-27 21:41 | PDOC3 ---
[facility]-Discharge Summary Date of Admission: Date of Admission: Jun 20, 2021 Date of Discharge: Date of Discharge: Jun 22, 2021 Discharge Diagnosis: Discharge Diagnosis: Near syncope likely related to uncontrolled diabetes New onset diabetes History of paroxysmal atrial fibrillation with ablation 4 years ago Hx of chronic ETOH abuse: just finished ETOH detox about 2 weeks ago History of medical noncompliance Atypical CP likely due to musculoskeletal etiology Consults: Consults: Per Cardiology: 1. Arrhythmia: EKG with sinus tach, PACs, no strips relating to AFIB 2. Presyncope/weakness/ataxia: potentially from uncontrolled DM and vertigo. none further 3. HTN: controlled 4. DM2: per PCP. pt denies knowing that he has DM. A1C 7.7 5. PAFIB: ablation 4 yrs ago. Maintaining SR 6. Hx of chronic ETOH abuse: just finished ETOH detox about 2 weeks ago 7. Hypomagnesemia: replaced 8. Hx of noncompliance: has not seen a PCP nor forepart rounder for at least 3 yrs and has been getting his med refills through ER visit 9. Valvular insufficiency: EF and LV WM nml with addition below. The right ventricle is mildly to moderately dilated. Doppler and Color Flow revealed mild to moderate tricuspid regurgitation with an estimated PAP of 36 mmHg. Doppler and Color Flow revealed mild to moderate pulmonic valvular regurgitation. 10. Atypical CP: possibly MSK 11. Nontraumatic mechanical fall: last Friday Recommendations 1. Secondary prevention measures. ASA 2. Last stress test at least 3 yrs ago. Consider for future outpt stress test, Follow up with Dr. Desir from cardiology. Discussed compliance 3. May DC per cardiac perspective and f/u with cardiology as noted above 4. Reduce clonidine and start on toprol Hospital Course: Hospital Course: 60-year-old male well known to my service. 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 He has also had a pericardial window in the past. Today when he presented to the ER with chest pain, we also checked his labs. He seems to have new onset diabetes. His glucose is 308. Interestingly, he states he checks his glucose at work even though he denies ever had a history of diabetes. States he takes a lot of herbs. Admitted for further management 06/21/2021 No acute events overnight. Patient patient seen examined bedside. Chest pain- free at this time. Echo results pending. Glucose are better controlled. Patient will need to continue on Metformin and atorvastatin. By day of discharge, pt was clinically stable and ready for discharge. Rest of hospital course was uneventful Disposition: Disposition/Orders: D/C to Home Activity: Activity: Resume previous activity Diet: Diet: Cardiac Medications: Home Meds Active Scripts Clonidine (CLONIDINE TTS-1 ) 1 Each Patch.tdwk, 1 PATCH TD WEEKLY for HYPERTENSION for 30 Days, #4 PATCH 2 Refills Prov:MYNOR BASILIO MD 06/22/21 Metformin Hcl (METFORMIN HCL) 1,000 Mg Tablet, 1000 MG PO BIDWMEALS for DM for 30 Days, #60 TAB 2 Refills Prov:MYNOR BASILIO MD 06/21/21 Atorvastatin Calcium (ATORVASTATIN CALCIUM) 40 Mg Tablet, 1 TAB PO QHS for parviz sterol for 30 Days, #30 TAB 3 Refills Prov:MYNOR BASILIO MD 06/21/21 Aspirin (ASPIRIN EC) 81 Mg Tablet.dr, 81 MG PO DAILYWBKFT for heart disease prevention for 30 Days, #30 TAB.SR 2 Refills Prov:MYNOR BASILIO MD 06/21/21 Metoprolol Succinate (METOPROLOL SUCCINATE ( XL )) 25 Mg Tab.er.24h, 25 MG PO DAILY for blood prssure for 30 Days, #30 TAB.SR 2 Refills Prov:MYNOR BASILIO MD 06/21/21 Lorazepam (ATIVAN) 1 Mg Tablet, 1 MG PO BID for anxiety, #12 TAB Prov:PAUL MOORE MD 05/02/21 Famotidine (FAMOTIDINE) 20 Mg Tablet, 20 MG PO BID for GERD, #60 TAB Prov:PAUL MOORE MD 05/02/21 Scheduled Aspirin (Aspirin Ec), 81 MG PO DAILYWBKFT Atorvastatin Calcium (Atorvastatin Calcium), 1 TAB PO QHS Clonidine (Clonidine Tts-1 ), 1 PATCH TD WEEKLY Famotidine (Famotidine), 20 MG PO BID Lorazepam (Ativan), 1 MG PO BID Metformin Hcl (Metformin Hcl), 1,000 MG PO BIDWMEALS Metoprolol Succinate (Metoprolol Succinate ( Xl )), 25 MG PO DAILY Total Time: Total Time: Total time spent was 34 minutes in preparing scripts and discharge planning with SW and RN. Patient seen and examined on day of Discharge. Justicifation of Admission Dx: Justifications for Admission: Justification of Admission Dx: Yes Angina: [facility] MYNOR BASILIO MD Jun 27, 2021 21:41
== END 2021-06-22 14:25 | disposition home or self-care (01) ==
LOC: ER 12:05 → ED HOLD 15:58 → 6 SOUTH 17:20
PROVIDERS: ADMIT Internal Medicine; ATTEND Internal Medicine
DX: E11.65 Type 2 diabetes mellitus with hyperglycemia (principal); R07.89 Other chest pain; I48.0 Paroxysmal atrial fibrillation; I10 Essential (primary) hypertension; F41.9 Anxiety disorder, unspecified; R53.1 Weakness; C81.90 Hodgkin lymphoma, unspecified, unspecified site; E83.42 Hypomagnesemia; S09.90XA Unspecified injury of head, initial encounter; G89.29 Other chronic pain; I07.1 Rheumatic tricuspid insufficiency; F10.20 Alcohol dependence, uncomplicated; I49.9 Cardiac arrhythmia, unspecified; I37.1 Nonrheumatic pulmonary valve insufficiency; R55 Syncope and collapse; D64.9 Anemia, unspecified; I38 Endocarditis, valve unspecified; Z85.72 Personal history of non-Hodgkin lymphomas; Z90.81 Acquired absence of spleen; Z91.19 Patient's noncompliance with other medical treatment and regimen; Z92.3 Personal history of irradiation; Z90.49 Acquired absence of other specified parts of digestive tract; Z79.899 Other long term (current) drug therapy; Z98.890 Other specified postprocedural states; W01.0XXA Fall on same level from slipping, tripping and stumbling without subsequent striking against object, initial encounter
CPT/HCPCS: 36415; 70450; 80053; 80061; 80307; 81001; 82550; 82962; 83036; 83735; 84100; 84443; 84484; 85025; 93005; 93306; 96361; 96365; 96366; 96375; 97161; 97165; 99285; G0378; G0480; J1815; J2060; J3475; J3490; J7030; G0379; C8929